=== PATIENT | male | born 1980 | race Caucasian/White ===

== ENCOUNTER 2022-12-04 15:36 | Outpatient (OUT) | payer BC, SELFPAY ==
--- NOTE | 2022-12-04 15:49 | XR_ITS ---
[address] [address] Patient Name: ELISE PRUETT MRN: [id number] date: 1980 Sex: M Assigned Patient Location: RAD Current Patient Location: [facility] Accession/Order Number: [id number] Exam Date: 12/04/2022 15:51 Report Date: 12/04/2022 18:04 At the request of: MAYURI CANNON Procedure: XR shoulder RT min 2V PROCEDURE: XR shoulder RT min 2V COMPARISON: None. HISTORY: Right supraspinatus tendinitis (M75.91) FINDINGS: BONES:No fracture, acute abnormality, or significant arthropathy. SOFT TISSUES:Negative. No visible soft tissue swelling. EFFUSION:None visible. OTHER: Negative. IMPRESSION: No acute radiographic abnormality Electronically authenticated by: YUDI SADLER Date: 12/04/2022 18:04
== END 2022-12-04 15:37 ==
LOC: RAD 15:41
PROVIDERS: PCP Family Medicine; Visit Provider Nurse Practitioner Family
DX: M75.91 Shoulder lesion, unspecified, right shoulder (principal)
CPT/HCPCS: 73030

== ENCOUNTER 2023-10-14 09:41 | Emergency (ER) | payer BC, SELFPAY ==
[2023-10-14 09:45] VITALS: BP 126/80; PULSE 70; TEMP 36.6; O2SAT 100; BMI 31.1
--- NOTE | 2023-10-14 10:00 | ED.BACK1 ---
HPI HPI - Back Pain/Injury General Chief Complaint: Back Pain/Injury Stated Complaint: BACK PAIN Time Seen by Provider: 10/14/23 09:44 Source: patient Mode of arrival: walk-in Limitations: no limitations History of Present Illness HPI Narrative: Patient is very active, works as a facility maintenance technician/temporary staff accountant. Patient bent over to peanut picker a laptop and he suddenly experienced pain in the mid low back. he rested and by the next day it felt better - so he resumed activity. When he bent over to put on his shoes this morning, the pain returned at a much worse level. his said that she found him on the floor almost unable to move. No bowel or bladder dysfunction. No LE weakness or paralysis. He admits to some tingling in both great toes. Related Data Home Medications ?Medication ?Instructions ?Recorded ?Confirmed amitriptyline 25 mg tablet 25 mg PO BID 10/14/23 10/14/23 carvedilol 3.125 mg tablet 3.125 mg PO Q12H 10/14/23 10/14/23 cetirizine 10 mg chewable tablet 10 mg PO DAILY 10/14/23 10/14/23 citalopram 40 mg tablet 40 mg PO DAILY 10/14/23 10/14/23 lorazepam 1 mg tablet 1 mg PO Q12H PRN agitation 10/14/23 10/14/23 perphenazine 2 mg tablet 2 mg PO BID 10/14/23 10/14/23 Previous Rx's ?Medication ?Instructions ?Recorded methocarbamol 750 mg tablet 750 mg PO Q6H PRN pain #30 tabs 10/14/23 nabumetone 750 mg tablet 750 mg PO BID PRN pain #14 tabs 10/14/23 Allergies Allergy/AdvReac Type Severity Reaction Status Date / Time shellfish Allergy Mild Uncoded 10/14/23 09:45 Opioid HPI Opioid Management Most Recent Opioid Data: Last Pain Scale 8 10/14/23 09:54 Exam Narrative Exam Narrative: General: Alert, no acute distress, patient resting comfortably Skin: warm, intact, no pallor noted Head: Normocephalic, atraumatic Eye: Normal conjunctiva Respiratory: No acute distress Abdomen: Normal bowel sounds, soft, nontender, no masses detected. No rebound, guarding, or rigidity noted. Back: inspection of the back shows no obvious deformity, no swelling, no ecchymosis, contusion, abrasion, swelling, erythema, fluctuance or induration. Tenderness noted to lumbosacral junction and right paralumbar soft tissue with some spasming. Straight leg raise on left is negative. Straight leg raise on right is negative. No CVA tenderness noted bilaterally. Musculoskeletal: No deformity noted to bilateral lower extremities. no cyanosis or mottling noted. normal pulses at DP and PT 2+ bilaterally and symmetrically. Normal 5/5 strength at ankles with dorsiflexion and plantar flexion. Patient is able to ambulate. Normal sensation noted to both lower extremities. Neurological: AAOx4, normal sensory and motor observed. L5-S1 reflexes intact symmetrically. DTR 2+ at patellar bilaterally. Psychiatric: Cooperative and interactive. Constitutional Vital Signs, click to edit/add: Last Vital Signs Temp 97.9 F 10/14/23 09:45 Pulse 70 10/14/23 09:45 Resp 18 10/14/23 09:45 BP 126/80 10/14/23 09:45 Pulse Ox 100 10/14/23 09:45 O2 Del Method Room Air 10/14/23 09:45 Course Vital Signs Vital signs: Vital Signs Temperature 97.9 F 10/14/23 09:45 Pulse Rate 70 10/14/23 09:45 Respiratory Rate 18 10/14/23 09:45 Blood Pressure 126/80 10/14/23 09:45 Pulse Oximetry 100 10/14/23 09:45 Oxygen Delivery Method Room Air 10/14/23 09:45 Temperature 97.9 F 10/14/23 09:45 Pulse Rate 70 10/14/23 09:45 Respiratory Rate 18 10/14/23 09:45 Blood Pressure 126/80 10/14/23 09:45 Pulse Oximetry 100 10/14/23 09:45 Oxygen Delivery Method Room Air 10/14/23 09:45 MDM - Back Pain/Injury MDM Narrative Medical decision making narrative: Exam does not reveal any neurosurgical emergency Or findings consistent with acute cauda equina syndrome. I do not see benefit to imaging at this time as he does not suffer blunt trauma, fall or MVC. Exam and history are consistent with an acute lumbosacral strain with associated spasming of the right paralumbar musculature. Patient was given prednisone and Toradol in the emergency department. He was discharged home with prescription for Relafen and Robaxin. PCP follow up recommended Discharge Plan Discharge Stand Alone Forms: Portal Instructions Chief Complaint: Back Pain/Injury Clinical Impression: Strain of lumbar region Patient Disposition: Home, Self-Care Time of Disposition Decision: 10:12 Prescriptions / Home Meds: New nabumetone 750 mg tablet 750 mg PO BID PRN (Reason: pain) Qty: 14 0RF methocarbamol 750 mg tablet 750 mg PO Q6H PRN (Reason: pain) Qty: 30 0RF No Action amitriptyline 25 mg tablet 25 mg PO BID carvedilol 3.125 mg tablet 3.125 mg PO Q12H citalopram 40 mg tablet 40 mg PO DAILY perphenazine 2 mg tablet 2 mg PO BID lorazepam 1 mg tablet 1 mg PO Q12H PRN (Reason: agitation) cetirizine 10 mg tablet,chewable 10 mg PO DAILY Print Language: Hebrew Instructions: Low Back Strain (ED), Lower Back Exercises (ED), Core Strengthening Exercises (ED) Referrals: BETH FLEMING [Primary Care Provider] - 1 week
[2023-10-14] MEDS: KETOROLAC TROMETHAMINE 10 MG TABLET PO (10:16)
[2023-10-14] MEDS: PREDNISONE 20 MG TABLET 40 MG PO (10:16)
== END 2023-10-14 10:25 | disposition home or self-care (01) ==
PROVIDERS: Emergency Provider Emergency Medicine; PCP Family Medicine
DX: S39.012A Strain of muscle, fascia and tendon of lower back, initial encounter (principal); X50.9XXA Other and unspecified overexertion or strenuous movements or postures, initial encounter; Z79.899 Other long term (current) drug therapy
CPT/HCPCS: 99283

== ENCOUNTER 2024-05-10 06:33 | Outpatient (OUT) | payer BC, SELFPAY ==
--- OUTSIDE RECORDS SUMMARY | 2024-05-10 06:35 | XMS_ITS | CCD ---
Author Organization [facility] Care Team Providers Care Drop Man Name Role Phone DR ANNITA JOHNSON Consulting Unavailable ALEX, DR ARIZA Admitting Unavailable FURLONG, DR LAWSON March Primary Care Unavailable ALEX, DR ARIZA Attending Unavailable Amy Larson Consulting Unavailable EDDA, DR TO Espana Admitting Unavailable EDDA, DR TO Espana Attending Unavailable EDDA, DR TO [place]spana Consulting Unavailable NAVEEN, DR LAWSON March Primary Care Unavailable Ritter, Wincha Consulting Unavailable ALEX, DR ARIZA Attending Unavailable ALEX, DR ARIZA Consulting Unavailable NAVEEN, DR LAWSON March Primary Care Unavailable HAY, DR ARIZA Admitting Unavailable AHDOOT, PIPER Consulting Unavailable Lawson Hodge G Unavailable Unavailable Unavailable Naveen, Lawson Keller Primary Care Unavailab kalina Doshi, Dr. Houston Attending Unavaila nael Doshi, Dr. [place] Referring Unavaila ble Lawson Hodge DO Primary Care Provider CHARIS SCHOFIELD Attending Unavailable LAWSON HODGE Referring Unavailable LAWSON HODGE Primary Care Unavailable PAOLO BRUNNER Attending Unavailable TONYANGLAWSON G Referring Unavailable CARLEYLONG, LAWSON March Primary Care Unavailable TONYANGLAWSON Attending Unavailable TONYANGLAWSON G Referring Unavailable CARLEYLONG, LAWSON G Primary Care Unavailable Furlong Lawson SALAZAR Primary Care Provider [phone] MD Hipolito Ruiz Primary Care Provider MD Srinivas Moncada Attending Provider SRINIVAS MONCADA Referring Unavailable Srinivas Moncada Admitting Unavailable Srinivas Moncada Attending Unavailable Hipolito Ruiz Primary Care Unavailable CarleyloLawson henderson DO Primary Care Provider CANDELARIA DOSHI Attending Unavailable CANDELARIA DOSHI Referring Unavailable LAWSON HODGE Primary Care Unavailab le Allergies Allergy Classification Reported Allergen(s) Allergy Type Date of Onset Reaction(s) Facility Shellfish (1 source) Shellfish Food Allergy [address] [facility] Repository (4 sources) Penicillins; Translations: [Penicillins] Allergy to drug (finding) [facility] [employer] 250 DO Work Phone: (4 sources) Shellfish-derive d Products; Translations: [Shellfish-deriv ed Products] [facility] [employer] [facility] Work Phone: (5 sources) Shellfish; Translations: [shellfish derived] Propensity to adverse reactions 1 [facility] (3 sources) SHELLFISH CONTAINING PRODUCTS; Translations: [SHELLFISH CONTAINING PRODUCTS] Propensity to adverse reactions to food (disorder) 7 Anaphylaxis [facility] Repository (2 sources) Penicillin; Translations: [penicillin G] Drug Allergy 1 n/v [facility] Medications Current Medications Medication Drug Class(es) Dates Sig (Normalized) Sig (Original) amitriptyline hydrochloride 25 mg oral tablet (7 sources) Tricyclic Antidepressant Start: 09-21-2023 take 1 tablet by mouth at bedtime amitriptyline (ELAVIL) 25 mg tablet Indications: Generalized anxiety disorder Take 1 tablet (25 mg total) by mouth in the morning and at bedtime. 180 tablet 3 09/21/2023 Active apremilast 30 mg oral tablet (1 source) Start: 02-10-2024 take 1 tablet by mouth in the morning, then take 1 tablet by mouth at bedtime apremilast (OTEZLA) 30 mg tablet Indications: Psoriasis Take 1 tablet (30 mg total) by mouth in the morning and 1 tablet (30 mg total) before bedtime. 180 tablet 1 02/10/2024 Active carvedilol 3.125 mg oral tablet (8 sources) alpha-Adrenergic Jaden, beta-Adrenergic Jaedn Start: 10-21-2021 End: 04-21-2024 take 1 tablet by mouth twice daily at mealtime carvedilol (Coreg) 3.125 mg tablet Indications: Palpitations , Ventricular ectopic beats TAKE 1 TABLET BY MOUTH TWICE DAILY WITH MEALS 180 tablet 3 03/21/2024 Active cetirizine hydrochloride 10 mg chewable tablet (7 sources) Histamine-1 Receptor Antagonist cetirizine (ZyrTEC) 10 mg chewable tablet Chew 1 tablet (10 mg) once daily. Active Zyrtec 10 MG TAB S TAKE 1 TABLET DAILY. Quantity: 0 Refills: 0 Ordered: 11-Jul-2021 DO Active citalopram 40 mg oral tablet (8 sources) Serotonin Reuptake Inhibitor Start: 03-22-2024 citalopram (CeleXA) 40 mg tablet take 1 tablet daily 90 tablet 03/22/2024 Active Start: 12-23-2023 End: 03-22-2024 citalopram (CeleXA) 40 mg ta blet take 1 tablet daily 90 tablet 12/23/2023 03/22/2024 Discontinued fish oil/om-3/E/folic/B6-B12 (CARDIOVID PLUS ORAL) (2 sources) take 1 tablet by mouth twice daily fish oil/om-3/E/folic/B6-B12 (CARDIOVID PLUS ORAL) Take 1 tablet by mouth 2 times a day. Active take 1 tablet by anand th twice daily fish oil/om-3/E/folic/B6-B12 (CARDIOVID PLUS ORAL) Take 1 tablet by mouth 2 times a day. 0 Active folic acid 1 mg oral tablet (1 source) Start: 04-21-2024 take 1 tablet by mouth in the morning folic acid (Folvite) 1 mg tablet Take 1 tablet (1 mg) by mouth early in the morning.. 04/21/2024 Active ibuprofen 800 mg oral tablet (1 source) Nonsteroidal Anti-inflammatory Drug Start: 10-19-2023 take 1 tablet by mouth every eight hours as needed for pain ibuprofen (MOTRIN) 800 mg tablet Indications: Strain of lumbar paraspinous muscle, subsequent encounter Take 1 tablet (800 mg total) by mouth every 8 (eight) hours as needed for pain. 60 tablet 10/19/2023 Active LORazepam 1 mg oral tablet (5 sources) Benzodiazepine Start: 03-10-2024 take 1 tablet by mouth once as needed LORazepam (ATIVAN) 1 mg tablet Indications: Generalized anxiety disorder Take 1 tablet (1 mg total) by mouth every 12 (twelve) hours as needed for anxiety. 60 tablet 03/10/2024 Active Start: 06-06-2022 LORazepam 1 MG Oral Tablet TAKE 1/2 TO 1 TABLET NEEDED FOR ANXIETY. Quantity: 0 Refills: 0 Ordered: 06-Jun-2022 DO Start : 06-Jun-2022 Active Magnesium (7 sources) take 1 tablet by anand th twice daily magnesium 200 mg tablet Take 1 tablet (200 mg) by mouth 2 times a day. Active take 1 tablet by mouth in the mo rning magnesium 200 mg tablet Take 200 mg by mouth in the morning and 200 mg before bedtime. Active take 1 tablet by mouth twice damir ly magnesium 200 mg tablet Take 1 tablet (200 mg) by mouth 2 times a day. 0 Active take 2 tablets by mouth once damir ly Magnesium 200 MG Oral Tablet TAKE 2 TABLET Daily Quantity: 0 Refills: 0 Ordered: 11-Jul-2021 DO Active methotrexate 2.5 mg oral tablet (1 source) Folate Analog Metabolic Inhibitor Start: 04-19-2024 take 6 tablets by mouth every week methotrexate (Trexall) 2.5 mg tablet Take 6 tablets (15 mg total) by mouth 1 (one) time per week. 04/19/2024 Active omeprazole 40 mg delayed release oral capsule (1 source) Proton Pump Inhibitor Start: 04-28-2024 End: 04-28-2025 take 1 capsule by mouth once daily before mealtime omeprazole (PriLOSEC) [address] capsule Indications: Chest pain, unspecified type Take 1 capsule (40 mg) by mouth once daily in the morning. Take before meals. Do not crush or chew. 90 capsule 3 04/28/2024 04/28/2025 Active ondansetron 8 mg disintegrating oral tablet (1 source) Serotonin-3 Receptor Antagonist Start: 02-16-2024 take 1 tablet by mouth every eight hours as needed for nausea and vomiting ondansetron ODT (ZOFRAN ODT) 8 mg disintegrating tablet Dissolve 1 tablet (8 mg total) on tongue every 8 (eight) hours as needed for nausea or vomiting. 20 tablet 02/16/2024 Active perphenazine 2 mg oral tablet (7 sources) Phenothiazine Start: 09-21-2023 take 1 tablet by mouth at bedtime perphenazine (TRILAFON) 2 mg tablet Indications: Generalized anxiety disorder Take 1 tablet (2 mg total) by mouth in the morning and at bedtime. 180 tablet 3 09/21/2023 Active triamcinolone acetonide 5 mg/ml topical cream (1 source) Corticosteroid Start: 02-16-2024 triamcinolone (KENALOG) 0.5 % cream Apply 1 Application topically in the morning and 1 Application before bedtime. 30 g 1 02/16/2024 Active Completed/Discontinued Medications Medication Drug Class(es) Dates Sig (Normalized) Sig (Original) Aurora 3 CAPS (4 sources) Aurora 3 CAPS VERONIQUE E 2 CAPSULE Daily Quantity: 0 Refills: 0 Ordered: 11-Jul-2021 DO Active Problems Active Problems Problem Classification Problem Date Documented Date Episodic/Chronic Anxiety disorders (5 sources) Anxiety disorder, unspecified; Translations: [Generalized anxiety disorder] Onset: 11-14-2016 Resolved: 03-19-2018 11-14-2016 Chronic Cardiac dysrhythmias (18 sources) Ventricular premature beats; Translations: [Other premature beats] Onset: 04-22-2023 04-22-2023 Chronic Cardiac dysrhythmias (18 sources) Palpitations; Translations: [Palpitations] Onset: 04-15-2020 Episodic Conditions associated with dizziness or vertigo (1 source) Dizziness and giddiness; Translations: [DIZZINESS AND GIDDINESS] Onset: 01-10-2021 Episodic Esophageal disorders (1 source) Gastroesophageal reflux disease; Translations: [Gastro-esophageal reflux disease without esophagitis] Onset: 09-16-2012 09-08-2022 Chronic Mood disorders (2 sources) Major depressive disorder, recurrent, in full remission; Translations: [Recurrent major depression in full remission] Onset: 07-02-2017 10-01-2023 Chronic Nonspecific chest pain (15 sources) Chest pain, unspecified; Translations: [Chest pain] Onset: 01-08-2021 Episodic Other aftercare (1 source) Other adjunct faculty for medical terminology (current) drug therapy; Translations: [OTH CARE HOME CURRENT DRUG THERAPY] Onset: 01-10-2021 Episodic Other circulatory disease (1 source) Orthostatic hypotension; Translations: [ORTHOSTATIC HYPOTENSION] Onset: 01-10-2021 Episodic Other inflammatory condition of skin (1 source) Psoriasis, unspecified; Translations: [Psoriasis, unspecified] Onset: 02-10-2024 Chronic Other inflammatory condition of skin (2 sources) Psoriasis; Translations: [Psoriasis, unspecified] Onset: 02-10-2024 02-26-2024 Chronic Other inflammatory condition of skin (1 source) Arthropathic psoriasis, unspecified; Translations: [Arthropathic psoriasis, unspecified] Onset: 03-23-2024 Chronic Other lower respiratory disease (3 sources) Shortness of breath; Translations: [SHORTNESS OF BREATH] Onset: 01-10-2021 Episodic Other lower respiratory disease (8 sources) Dyspnea; Translations: [Shortness of breath] Onset: 04-22-2023 04-22-2023 Episodic Other nutritional; endocrine; and metabolic disorders (4 sources) Obesity; Translations: [Obesity, unspecified] Chronic Other nutritional; endocrine; and metabolic disorders (4 sources) Body mass index 30+ - obesity; Translations: [Body mass index (BMI) 38.0-38.9, adult] Onset: 04-22-2023 04-22-2023 Chronic Other nutritional; endocrine; and metabolic disorders (2 sources) Body mass index (BMI) 38.0-38.9, adult; Translations: [Body mass index (BMI) 38.0-38.9, adult] Onset: 04-22-2023 Chronic Substance-related disorders (9 sources) Nicotine dependence, cigarettes, uncomplicated; Translations: [Smokes tobacco daily] Onset: 01-10-2021 04-28-2024 Chronic Comment on above: 1 ppd; Unclassified (1 source) back spasms Onset: 10-19-2023 Past or Other Problems Problem Classification Problem Date Documented Da te Episodic/Chronic Inflammatory conditions of male genital organs (1 source) Epididymitis; Translations: [EPIDIDYMITIS] Onset: 10-02-2020 Episodic Mood disorders (1 source) Mood disorders Onset: 02-10-2024 02-10-2024 Other male genital disorders (3 sources) Left testicular pain; Translations: [LEFT TESTICULAR PAIN] Onset: 09-30-2020 Episodic Residual codes; unclassified (1 source) Tobacco user; Translations: [Tobacco use] Onset: 11-14-2016 11-14-2016 Episodic Sprains and strains (1 source) Strain of muscle, fascia and tendon of lower back, subsequent encounter; Translations: [Strain of muscle, fascia and tendon of lower back, subsequent encounter] Onset: 10-19-2023 Episodic Unclassified (1 source) Onset: 10-19-2023 10-19-2023 Results Test Name Value Interpretation Reference Range Facility ECG 12 [place] 04-28-2024 Normal sinus rhythm [facility] Work Phone: XR CHEST 2 VIEWSon 4 XR CHEST 2 VIEWS XR - CHEST 2 VIEWS Reason for exam: Psoriasis Technique: PA and lateral view Findings: The heart size is normal. The pulmonary vascularity is unremarkable. The lungs are fully expanded and clear. No pleural abnormalities are seen. No evidence of mediastinal or hilar enlargement. The osseous structures are intact. No soft tissue abnormalities are seen. IMPRESSION: Normal chest x-ray. Dictated on: 03/28/2024 6:36 PM This report has been electronically signed and approved by the interpreting Radiologist. Electronically Signed Rosalino Quesada M.D. 2024-03-28 18:36:17 Normal Not Available XR HAND 1-2 VIEWS LEFTon XR HAND 1-2 VIEWS LEFT XR - LT HAND 2 EWS Reason for exam: Psoriasis Views: 2 Findings: The alignment is normal. No fracture, dislocation or other acute pathology is demonstrated. No soft tissue abnormalities are seen. Impression: Negative exam. Dictated on: 03/28/2024 6:10 PM This report has been electronically signed and approved by the interpreting Radiologist. Electronically Signed Rosalino Quesada M.D. 2024-03-28 18:11:15 Normal Not Available XR HAND 1-2 VIEWS RIGHTon XR HAND 1-2 VIEWS RIGHT EXAM: XR Right H and, Two Views. REASON FOR EXAM: Psoriasis. COMPARISON: Left hand x-rays March 28, 2024. FINDINGS: Two images. Bony cortices, joint spaces and alignment are maintained. There is no new bone formation or articular irregularity. There is a circumscribed cortical based lucent lesion measuring 5.3 mm at the distal end of the shaft of the fourth metacarpal. The borders are corticated and smoothly marginated. No internal matrix, periosteal reaction or pathologic fracture. IMPRESSION: 1. No evidence of active inflammatory arthropathy radiographically. 2. Cortical based lucent lesion of the distal cortex of the fourth metacarpal. This likely represents a small fibrous lesion or cystic lesion. It is nonarticular. No definite suspicious features. Follow-up x-rays of the right hand in 6 months recommended. *This report is generated using voice recognition reporting ([employer] On occasion [employer] erroneously drops words from the report or replaces the spoken word with similar sounding words. Please call with any questions/concerns regarding this report.* Dictated and transcribed 03/28/24dpd This report has been electronically signed and approved by the interpreting radiologist. Electronically Signed Jackson Gandhi II, M.D. 2024-03-28 16:13:36 Normal Not Available XR WRIST 1-2 VIEWS LEFTon XR WRIST 1-2 VIEWS LEFT XR - LT WRIST 2 VIEWS Reason for exam: History of psoriasis Views: 2 Findings: The alignment is normal. No fracture, dislocation or other acute pathology is demonstrated. No soft tissue abnormalities are seen. Impression: Negative exam. Dictated on: 03/28/2024 6:09 PM This report has been electronically signed and approved by the interpreting Radiologist. Electronically Signed Rosalino Quesada M.D. 2024-03-28 18:10:00 Normal Not Available XR WRIST 1-2 VIEWS RIGHTon 1 XR WRIST 1-2 VIEWS RIGHT EXAM: XR Right Wrist, Two Views. REASON FOR EXAM: History of psoriasis COMPARISON: X-rays right hand, left wrist March 28, 2024. FINDINGS: Two images. No new bone formation. There is 2.3 mm of foreshortening of the distal ulna in relation to the radius. Bony cortices and joint spaces are maintained. No radiopaque foreign body visualized radiographically. Soft tissues without abnormality radiographically. No erosions IMPRESSION: No acute bony abnormalities. *This report is generated using voice recognition reporting ([employer] On occasion [employer] erroneously drops words from the report or replaces the spoken word with similar sounding words. Please call with any questions/concerns regarding this report.* Dictated and transcribed 03/28/24/dpd This report has been electronically signed and approved by the interpreting radiologist. Electronically Signed Jackson Gandhi II, M.D. 2024-03-28 15:39:27 Normal Not Available Alanine aminotransferase [En zymatic activity/volume] in Serum or PlasmaOrdered By: Srinivas Castrorow on 03-23-2024 ALT [Catalytic activity/Vol] 40 U/L Normal 7-52 [facility] Comment on above: Performed By: #### H BSAB, QUANT TB, HBSAG, HCV RX PCR, HBCAB #### [facility] , #### CRP, CMP, ESR, CBC #### [facility] [address] Albumin [Mass/volume] in Ser um or Plasma by Bromocresol green (BCG) dye binding methoOrdered By: Srinivas Castrorow on 03-23-2024 Albumin BCG dye [Mass/Vol] 4.3 g/dL 3.5-5.7 [facility] Alkaline phosphatase [Enzyma tic activity/volume] in Serum or PlasmaOrdered By: Srinivas Louisa on 03-23-2024 ALP [Catalytic activity/Vol] 75 U/L Normal 34-104 [facility] Comment on above: Performed By: #### H BSAB, QUANT TB, HBSAG, HCV RX PCR, HBCAB #### [facility] , #### CRP, CMP, ESR, CBC #### [facility] [address] [place] [address] Aspartate aminotransferase [ Enzymatic activity/volume] in Serum or PlasmaOrdered By: Srinivassushma Moncada on 03-23-2024 AST [Catalytic activity/Vol] 25 U/L Normal 13-39 [facility] Comment on above: Performed By: #### H BSAB, QUANT TB, HBSAG, HCV RX PCR, HBCAB #### [facility] , #### CRP, CMP, ESR, CBC #### [facility] [address] [place] [address] [place] Automated basophil %Ordered By: Srinivas Louisa on 03-23-2024 Basophils/100 WBC (Bld) 0.9 % Normal . [facility] Comment on above: Performed By: #### H BSAB, QUANT TB, HBSAG, HCV RX PCR, HBCAB #### [facility] , #### CRP, CMP, ESR, CBC #### [address] Automated basophil countOrde red By: Srinivas Moncada on 03-23-2024 Basophils (Bld) [#/Vol] 0.1 10*3/uL Normal 0.0-0.2 [facility] Comment on above: Performed By: #### H BSAB, QUANT TB, HBSAG, HCV RX PCR, HBCAB #### [facility] , #### CRP, CMP, ESR, CBC #### [address] Automated blood monocyte cou ntOrdered By: Srinivas Moncada on 03-23-2024 Monocytes (Bld) [#/Vol] 0.8 10*3/uL Normal 0.0-0.8 [facility] Comment on above: Performed By: #### H BSAB, QUANT TB, HBSAG, HCV RX PCR, HBCAB #### [facility] , #### CRP, CMP, ESR, CBC #### [address] Automated eosinophil %Ordere d By: rSinivas Moncada on 03-23-2024 Eosinophils/100 WBC (Bld) 6.5 % Normal . [facility] Comment on above: Performed By: #### H BSAB, QUANT TB, HBSAG, HCV RX PCR, HBCAB #### [facility] , #### CRP, CMP, ESR, CBC #### [address] Automated eosinophil countOr dered By: Srinivas Castrorow on 03-23-2024 Eosinophils (Bld) [#/Vol] 0.6 10*3/uL High 0.0-0.45 [facility] Comment on above: Performed By: #### H BSAB, QUANT TB, HBSAG, HCV RX PCR, HBCAB #### [facility] , #### CRP, CMP, ESR, CBC #### [address] Automated monocyte %Ordered By: Srinivas Castrorow on 03-23-2024 Monocytes/100 WBC (Bld) 8.6 % Normal . [facility] Comment on above: Performed By: #### H BSAB, QUANT TB, HBSAG, HCV RX PCR, HBCAB #### [facility] , #### CRP, CMP, ESR, CBC #### [facility] [address] Automated neutrophil %Ordere d By: Srinivas Castrorow on 03-23-2024 Neutrophils/100 WBC (Bld) 50.8 % Normal . [facility] Comment on above: Performed By: #### H BSAB, QUANT TB, HBSAG, HCV RX PCR, HBCAB #### [facility] , #### CRP, CMP, ESR, CBC #### [facility] [address] [place] [address] Bilirubin.total [Mass/volume ] in Serum or PlasmaOrdered By: Srinivassushma Moncada on 03-23-2024 Bilirubin [Mass/Vol] 0.5 mg/dL Normal 0.3-1.0 [facility] Comment on above: Performed By: #### H BSAB, QUANT TB, HBSAG, HCV RX PCR, HBCAB #### [facility] , #### CRP, CMP, ESR, CBC #### [facility] [address] [place] [address] C reactive protein [Mass/vol ume] in Serum or PlasmaOrdered By: Srinivas Moncada on 03-23-2024 CRP [Mass/Vol] 1.1 mg/dL High 0.0-0.5 [facility] C-Reactive Proteinon 024 C-Reactive Protein 1.1 mg/dL High 0.0-0.5 [facility] Comment on above: Result Comment: PERF ORMED BY: [address] [place] [address] PATHOLOGIST VOCATIONAL TECHNICAL EDUCATION DIRECTOR CHIQUI TIJERINA M.D. Performed By: #### H BSAB, QUANT TB, HBSAG, HCV RX PCR, HBCAB #### [facility] , #### CRP, CMP, ESR, CBC #### [facility] [address] [place] [address] [place] Calcium [Mass/volume] in Ser um or PlasmaOrdered By: Srinivas Moncada on 03-23-2024 Calcium [Mass/Vol] 9.5 mg/dL Normal 8.6-10.3 [facility] Comment on above: Performed By: #### H BSAB, QUANT TB, HBSAG, HCV RX PCR, HBCAB #### [facility] , #### CRP, CMP, ESR, CBC #### [facility] [address] Carbon dioxide, total [Moles /volume] in Serum or PlasmaOrdered By: Srinivas Castrorow on 03-23-2024 CO2 [Moles/Vol] 27.5 mmol/L Normal 21.0-31.0 [facility] Comment on above: Performed By: #### H BSAB, QUANT TB, HBSAG, HCV RX PCR, HBCAB #### [facility] , #### CRP, CMP, ESR, CBC #### [facility] [address] [place] [address] [place] Chloride [Moles/volume] in S preeti or PlasmaOrdered By: Srinivas Castrorow on 03-23-2024 Chloride [Moles/Vol] 105 mmol/L Normal 98-107 [facility] Comment on above: Performed By: #### H BSAB, QUANT TB, HBSAG, HCV RX PCR, HBCAB #### [facility] , #### CRP, CMP, ESR, CBC #### [facility] [address] Complete Blood Count Auto Di ffon 03-23-2024 Mean Corpuscular HGB Conc 34.4 g/dL Normal 32.5-35.6 [facility] Comment on above: Performed By: #### H BSAB, QUANT TB, HBSAG, HCV RX PCR, HBCAB #### [facility] , #### CRP, CMP, ESR, CBC #### [address] NRBC% 0.2 /100{WBC} Normal 0-0.5 [facility] Comment on above: Performed By: #### H BSAB, QUANT TB, HBSAG, HCV RX PCR, HBCAB #### [facility] , #### CRP, CMP, ESR, CBC #### [address] Comprehensive Metabolic Pane juan david 03-23-2024 Albumin [Mass/Vol] 4.3 g/dL Normal 3.5-5.7 [facility] Comment on above: Performed By: #### H BSAB, QUANT TB, HBSAG, HCV RX PCR, HBCAB #### [facility] , #### CRP, CMP, ESR, CBC #### [address] GFR/1.73 sq M.predicted MDRD (S/P/Bld) [Vol rate/Area] mL/min/{1.73_m2} Normal [facility] Comment on above: Performed By: #### H BSAB, QUANT TB, HBSAG, HCV RX PCR, HBCAB #### [facility] , #### CRP, CMP, ESR, CBC #### [address] Creatinine [Mass/volume] in Serum or PlasmaOrdered By: Srinivas Moncada on 03-23-2024 Creatinine [Mass/Vol] 0.98 mg/dL Normal 0.70-1.30 [facility] Comment on above: Performed By: #### H BSAB, QUANT TB, HBSAG, HCV RX PCR, HBCAB #### [facility] , #### CRP, CMP, ESR, CBC #### [address] Erythrocyte Sedimentation Ra wilton 03-23-2024 ESR (Bld) [Velocity] 20 mm/h High 0-14 [facility] Comment on above: Result Comment: PERF ORMED BY: [place] [address] PATHOLOGIST VOCATIONAL TECHNICAL EDUCATION DIRECTOR CHIQUI TIJERINA M.D. Performed By: #### H BSAB, QUANT TB, HBSAG, HCV RX PCR, HBCAB #### [facility] , #### CRP, CMP, ESR, CBC #### [address] Erythrocyte distribution wid th [Ratio] by Automated countOrdered By: Srinivas Moncada on 03-23-2024 Erythrocyte distribution width (RBC) [Ratio] 13.4 % Normal 12.0-14.8 [facility] Comment on above: Performed By: #### H BSAB, QUANT TB, HBSAG, HCV RX PCR, HBCAB #### [facility] , #### CRP, CMP, ESR, CBC #### [address] Erythrocyte sedimentation ra te by Photometric methodOrdered By: Srinivas Moncada on 03-23-2024 ESR Photometric method (Bld) [Velocity] 20 mm/hr High 0-14 [facility] Erythrocytes [#/volume] in B lood by Automated countOrdered By: Srinivas Moncada on 03-23-2024 RBC (Bld) [#/Vol] 4.96 10*6/uL Normal 3.90-5.60 [facility] Comment on above: Performed By: #### H BSAB, QUANT TB, HBSAG, HCV RX PCR, HBCAB #### [facility] , #### CRP, CMP, ESR, CBC #### [address] Glucose [Mass/volume] in Ser um or PlasmaOrdered By: Srinivas Moncada on 03-23-2024 Glucose [Mass/Vol] 106 mg/dL High 70-100 [facility] Comment on above: ADA recommended refe rence rangeRandom Glucose Reference Range is dependent on time and content of last meal. Glucose of more than 200 mg/dL in a nonstressed, ambulatory subject supports the diagnosis of Diabetes Mellitus. Result Comment: [facility] Glucose Reference Range is dependent on time and content of last meal. Glucose of more than 200 mg/dL in a nonstressed, ambulatory subject supports the diagnosis of Diabetes Mellitus. ADA recommended reference range Performed By: #### H BSAB, QUANT TB, HBSAG, HCV RX PCR, HBCAB #### [facility] , #### CRP, CMP, ESR, CBC #### [address] Hematocrit [Volume Fraction] of Blood by Automated countOrdered By: Srinivas Moncada on 03-23-2024 Hematocrit (Bld) [Volume fraction] 44.0 % Normal 38.8-50.0 [facility] Comment on above: Performed By: #### H BSAB, QUANT TB, HBSAG, HCV RX PCR, HBCAB #### [facility] , #### CRP, CMP, ESR, CBC #### [address] Hemoglobin [Mass/volume] in BloodOrdered By: Srinivas Moncada on 03-23-2024 Hemoglobin (Bld) [Mass/Vol] 15.1 g/dL Normal 13.0-17.0 [facility] Comment on above: Performed By: #### H BSAB, QUANT TB, HBSAG, HCV RX PCR, HBCAB #### [facility] , #### CRP, CMP, ESR, CBC #### [address] Hep C Ab wRfx to Qnt PCRon 1 Hepatitis C Virus Antibody Non-Reactive Normal Non Reactive [facility] Comment on above: Performed By: #### H BSAB, QUANT TB, HBSAG, HCV RX PCR, HBCAB #### [facility] , #### CRP, CMP, ESR, CBC #### [address] Interpretation Hepatitis C Comment Normal . [facility] Comment on above: Result Comment: Not infected with HCV unless early or acute infection is suspected (which may be delayed in an immunocompromised individual), or other evidence exists to indicate HCV infection. Performed By: #### H BSAB, QUANT TB, HBSAG, HCV RX PCR, HBCAB #### [facility] , #### CRP, CMP, ESR, CBC #### [facility] [address] [place] [address] Hepatitis B Core Antibodyon 03-23-2024 Hepatitis B Core Antibody Negative Normal Negative [facility] Comment on above: Result Comment: Perf ormed at: - [facility] [address] [id number] Gymnastic Teacher: Denny Walton PhD, Phone: [phone] Performed By: #### H BSAB, QUANT TB, HBSAG, HCV RX PCR, HBCAB #### [facility] , #### CRP, CMP, ESR, CBC #### [address] Hepatitis B Surface Antibody on 03-23-2024 Hepatitis B Surface Antibody Non-Reactive Normal . [facility] Comment on above: Result Comment: Non Reactive: Not immune to HBV infection. Equivocal: Unable to determine if anti-HBs is present at levels consistent with immunity. Reactive: Anti-HBs concentration detected at greater than 10 mIU/mL. Individual is considered to be immune to infection with HBV. Performed By: #### H BSAB, QUANT TB, HBSAG, HCV RX PCR, HBCAB #### [facility] , #### CRP, CMP, ESR, CBC #### [facility] [address] [place] [address] Hepatitis B Surface Antigeno n 03-23-2024 HBsAg Screen Negative Normal Negative [facility] Comment on above: Result Comment: PERF ORMED BY: [place] [address] PATHOLOGIST VOCATIONAL TECHNICAL EDUCATION DIRECTOR CHIQUI TIJERINA M.D. Performed By: #### H BSAB, QUANT TB, HBSAG, HCV RX PCR, HBCAB #### [facility] , #### CRP, CMP, ESR, CBC #### [facility] [address] [place] [address] Leukocytes [#/volume] correc meenakshi for nucleated erythrocytes in Blood by Automated counOrdered By: Srinivas Moncada on 03-23-2024 WBC corrected for nucl RBC Auto (Bld) [#/Vol] 8.7 10*3/uL 4.1-10.5 [facility] Leukocytes [#/volume] in Blo od by Automated countOrdered By: Srinivas Moncada on 03-23-2024 WBC (Bld) [#/Vol] 8.7 10*3/uL Normal 4.1-10.5 [facility] Comment on above: Performed By: #### H BSAB, QUANT TB, HBSAG, HCV RX PCR, HBCAB #### [facility] , #### CRP, CMP, ESR, CBC #### [address] Lymphocytes [#/volume] in Bl ood by Automated countOrdered By: Srinivas Moncada on 03-23-2024 Lymphocytes (Bld) [#/Vol] 2.9 10*3/uL Normal 1.00-4.8 [facility] Comment on above: Performed By: #### H BSAB, QUANT TB, HBSAG, HCV RX PCR, HBCAB #### [facility] , #### CRP, CMP, ESR, CBC #### [address] Lymphocytes/100 leukocytes i n Blood by Automated countOrdered By: Srinivas Castrorow on 03-23-2024 Lymphocytes/100 WBC (Bld) 33.2 % Normal . [facility] Comment on above: Performed By: #### H BSAB, QUANT TB, HBSAG, HCV RX PCR, HBCAB #### [facility] , #### CRP, CMP, ESR, CBC #### [address] MCH [Entitic mass] by Automa meenakshi countOrdered By: Srinivas Moncada on 03-23-2024 MCH (RBC) [Entitic mass] 30.5 pg Normal 27.5-35.2 [facility] Comment on above: Performed By: #### H BSAB, QUANT TB, HBSAG, HCV RX PCR, HBCAB #### [facility] , #### CRP, CMP, ESR, CBC #### [facility] [address] MCHC Auto (RBC) [Mass/Vol]Or dered By: Srinivas Moncada on 03-23-2024 MCHC (RBC) [Mass/Vol] 34.4 g/dL 32.5-35.6 [facility] MCV [Entitic volume] by Auto mated countOrdered By: Srinivas Moncada on 03-23-2024 MCV (RBC) [Entitic vol] 88.6 fL Normal 83.5-101 [facility] Comment on above: Performed By: #### H BSAB, QUANT TB, HBSAG, HCV RX PCR, HBCAB #### [facility] , #### CRP, CMP, ESR, CBC #### [facility] [address] [place] [address] Neutrophils [#/volume] in Bl ood by Automated countOrdered By: Srinivas Moncada on 03-23-2024 Neutrophils (Bld) [#/Vol] 4.4 10*3/uL Normal 1.8-7.7 [facility] Comment on above: Performed By: #### H BSAB, QUANT TB, HBSAG, HCV RX PCR, HBCAB #### [facility] , #### CRP, CMP, ESR, CBC #### [facility] [address] [place] [address] No Panel InformationOrdered By: Srinivas Moncada on 03-23-2024 Estimated GFR (CKD-EPI) > 60.0 mL/Min [facility] Creatinine Clearance (Chem N/A [facility] Nucleated erythrocytes [Pres ence] in Blood by Automated countOrdered By: Srinivas Moncada on 03-23-2024 Nucleated RBC Auto Ql (Bld) 0.2 /100{WBC} 0-0.5 [facility] Platelet mean volume [Entiti c volume] in Blood by Automated countOrdered By: Srinivas Castrorow on 03-23-2024 Platelet mean volume (Bld) [Entitic vol] 11.5 fL High 6.6-10.1 [facility] Comment on above: Performed By: #### H BSAB, QUANT TB, HBSAG, HCV RX PCR, HBCAB #### [facility] , #### CRP, CMP, ESR, CBC #### [facility] [address] [place] [id number] [place] Platelets [#/volume] in Bloo d by Automated countOrdered By: Srinivas Castrorow on 03-23-2024 Platelets (Bld) [#/Vol] 190 10*3/uL Normal 150-450 [facility] Comment on above: Performed By: #### H BSAB, QUANT TB, HBSAG, HCV RX PCR, HBCAB #### [facility] , #### CRP, CMP, ESR, CBC #### [facility] [address] [place] [id number] [place] Potassium [Moles/volume] in Serum or PlasmaOrdered By: Srinivas Louisa on 03-23-2024 Potassium [Moles/Vol] 4.3 mmol/L Normal 3.5-5.1 [facility] Comment on above: Performed By: #### H BSAB, QUANT TB, HBSAG, HCV RX PCR, HBCAB #### [facility] , #### CRP, CMP, ESR, CBC #### [facility] [address] [place] [id number] [place] Protein [Mass/volume] in Ser um or PlasmaOrdered By: Srinivas Louisa on 03-23-2024 Protein [Mass/Vol] 6.6 g/dL Normal 6.4-8.9 [facility] Comment on above: Performed By: #### H BSAB, QUANT TB, HBSAG, HCV RX PCR, HBCAB #### [facility] , #### CRP, CMP, ESR, CBC #### [address] QuantiFERON TB Goldon 2023 QFTB Criteria Comment Normal . [facility] Comment on above: Result Comment: Christophe tiFERON-TB Gold Plus is a qualitative indirect test for M tuberculosis infection (including disease) and is intended for use in conjunction with risk assessment, radiography, and other medical and diagnostic evaluations. The QuantiFERON-TB Gold Plus result is determined by subtracting the Nil value from either TB antigen (Ag) value. The Mitogen tube serves as a control for the test. Performed By: #### H BSAB, QUANT TB, HBSAG, HCV RX PCR, HBCAB #### [facility] , #### CRP, CMP, ESR, CBC #### [address] Quant TB Ag Value 0.03 Normal . [facility] Comment on above: Performed By: #### H BSAB, QUANT TB, HBSAG, HCV RX PCR, HBCAB #### [facility] , #### CRP, CMP, ESR, CBC #### [address] Quant TB Gold Plus Negative Normal Negative [facility] Comment on above: Result Comment: No r esponse to M tuberculosis antigens detected. Infection with M tuberculosis is unlikely, but high risk individuals should be considered for additional testing (ATS/IDSA/CDC Clinical Practice Guidelines, 2017). The reference range is an Antigen minus Nil result of <0.35 IU/mL. The specimen received for QuantiFERON testing was incubated by the ordering institution. Specific procedures outlined in our Directory of Services and in the package insert for the QuantiFERON Gold (In Tube) test must be followed to enable for proper stimulation of cells for the production of interferon gamma. Chemiluminescence immunoassay methodology Performed at: [facility] [id number] Gymnastic Teacher: Denny Walton PhD, Phone: [phone] PERFORMED BY: [place] [address] PATHOLOGIST VOCATIONAL TECHNICAL EDUCATION DIRECTOR CHIQUI TIJERINA M.D. Performed By: #### H BSAB, QUANT TB, HBSAG, HCV RX PCR, HBCAB #### [facility] , #### CRP, CMP, ESR, CBC #### [address] Quant TB2 Ag Value 0.01 Normal . [facility] Comment on above: Performed By: #### H BSAB, QUANT TB, HBSAG, HCV RX PCR, HBCAB #### [facility] , #### CRP, CMP, ESR, CBC #### [address] Quantiferon Nil Value 0.00 Normal . [facility] Comment on above: Performed By: #### H BSAB, QUANT TB, HBSAG, HCV RX PCR, HBCAB #### [facility] , #### CRP, CMP, ESR, CBC #### [address] Quantiferon TB Mitogen >10.00 Normal . [facility] Comment on above: Performed By: #### H BSAB, QUANT TB, HBSAG, HCV RX PCR, HBCAB #### [facility] , #### CRP, CMP, ESR, CBC #### [address] Serum globulin measurement b y calculation (mass/volume)Ordered By: Srinivas Moncada on 03-23-2024 Globulin (S) [Mass/Vol] 2.3 g/dL Normal [facility] Comment on above: Performed By: #### H BSAB, QUANT TB, HBSAG, HCV RX PCR, HBCAB #### [facility] , #### CRP, CMP, ESR, CBC #### [address] Serum or plasma albumin/glob ulin mass ratioOrdered By: Srinivas Moncada on 03-23-2024 Albumin/Globulin [Mass ratio] 1.9 {ratio} Normal [facility] Comment on above: Performed By: #### H BSAB, QUANT TB, HBSAG, HCV RX PCR, HBCAB #### [facility] , #### CRP, CMP, ESR, CBC #### [address] Serum or plasma anion gap de terminationOrdered By: Srinivas Moncada on 03-23-2024 Anion gap [Moles/Vol] 9.8 mmol/L Normal 6.0-15.0 [facility] Comment on above: Performed By: #### H BSAB, QUANT TB, HBSAG, HCV RX PCR, HBCAB #### [facility] , #### CRP, CMP, ESR, CBC #### [address] Sodium [Moles/volume] in Ser um or PlasmaOrdered By: Srinivas Moncada on 03-23-2024 Sodium [Moles/Vol] 138 mmol/L Normal 136-145 [facility] Comment on above: Performed By: #### H BSAB, QUANT TB, HBSAG, HCV RX PCR, HBCAB #### [facility] , #### CRP, CMP, ESR, CBC #### [address] Urea nitrogen [Mass/volume] in Serum or PlasmaOrdered By: Srinivas Moncada on 03-23-2024 Urea nitrogen [Mass/Vol] 14 mg/dL Normal 7-25 [facility] Comment on above: Performed By: #### H BSAB, QUANT TB, HBSAG, HCV RX PCR, HBCAB #### [facility] , #### CRP, CMP, ESR, CBC #### [facility] [address] [place] [address] Office Visit (Cardiology)on 07-28-2022 Follow-up visit Diagnoses/Problems Assessed Palpitations (785.1) (R00.2) Premature ventricular contraction (427.69) (I49.3) Shortness of breath (786.05) (R06.02) Sinus tachycardia (427.89) (R00.0) Chest pain (786.50) (R07.9) Current every day smoker (305.1) (F17.200) 1 ppd Class 1 obesity with body mass index (BMI) of 30.0 to 30.9 in adult (278.00,V85.30) (E66.9,Z68.30) Orders Class 1 obesity with body mass index (BMI) of 30.0 to 30.9 in adult Healthy Weight Tips; Status:Complete - Retrospective Authorization; Done: [id number] Some eating tips that can help you lose weight.; Status:Complete - Retrospective Authorization; Done: [id number] SocHx: Current every day smoker Tobacco Use Screening; Status:Complete; Done: [id number] You need to quit smoking.; Status:Complete - Retrospective Authorization; Done: [id number] You need to stop smoking. Though it is not easy, more than half of all adult smokers have quit. We encourage you to write down all the reasons you should quit smoking and set a quit date for yourself. Ask us how we can help. You may also call 5-371-CNHMReocarNOW for free resources and assistance.; Status:Complete - Retrospective Authorization; Done: [id number] Patient Instructions Please bring all medicines, vitamins, and herbal supplements with you when you come to the office. Prescriptions will not be filled unless you are compliant with your follow up appointments or have a follow up appointment scheduled as per instruction of your physician. Refills should be requested at the time of your visit. Follow up in 9 months The provider reviewed the following test(s) and result(s) with the patient: echocardiogram, Holter monitor, laboratory tests and treadmill exercise tolerance test Chief Complaint ELISE SARABIA is being seen for an annual follow-up of. History of Present Illness Patient is here for follow-up continue management for previous evaluation for palpitation with documentation of monomorphic sporadic PVCs, previous evaluation for chest pain and shortness of breath, obesity. Since last time I saw him he complained of occasional palpitation atypical chest pain. He reports functional class I. He denies lightheadedness, dizziness or syncope. Assessment 1. Palpitation with documentation of PVCs. One episode interpreted as possible supraventricular tachycardia it is actually sinus tachycardia and followed heavy exertion. Marked improvement of his symptoms with low-dose magnesium and Coreg he has not been taking magnesium because of diarrhea 2. Evaluation for chest pain with negative stress test continue to have good functional status. Occasional atypical chest pain reported 3. Shortness of breath likely due to tobacco use. He reports resolution of that 4. Minor lightheadedness likely orthostatic resolved 5. Tobacco use 6. Obesity 7. Possible anxiety Plan 1. I advised the patient to continue medical regimen but advised him to take his magnesium with meals 2. Result of his cardiac work-up noted and reviewed. His symptoms appear stable and I do not believe there is need to repeat his testing 3. I recommended observant approach 4. Patient was counseled regarding dietary modification, exercise, losing weight and smoking cessation 5. We will see him back in the office in 9 months 5. Advised him to have a home heart rate monitoring device 6. Patient was advised to notify me change in cardiac status or symptoms Surgical History Problems History of Complete colonoscopy History of Gallbladder surgery Current Meds Medication NameInstruction Amitriptyline HCl - 25 MG Oral TabletTake 1 tablet twice daily Carvedilol 3.125 MG Oral Tablettake 1 tablet by mouth twice a day Citalopram Hydrobromide 40 MG Oral TabletTAKE 1 TABLET DAILY. LORazepam 1 MG Oral TabletTAKE 1/2 TO 1 TABLET NEEDED FOR ANXIETY. Magnesium 200 MG Oral TabletTAKE 2 TABLET Daily Aurora 3 CAPSTAKE 2 CAPSULE Daily Perphenazine 2 MG Oral TabletTake 1 tablet twice daily Zyrtec 10 MG TABSTAKE 1 TABLET DAILY. Allergies Medication Penicillins Recorded By: Snehal Zheng; 06/12/2021 11:54:21 AM diarrhea, nausea Shellfish-derived Products Recorded By: Snehal Zheng; 06/12/2021 11:54:21 AM Social History Problems Caffeine use (V49.89) (Z78.9) 3 cups coffee daily Current every day smoker (305.1) (F17.200) 1 ppd No illicit drug use Social alcohol use (V49.89) (Z78.9) Review of Systems Constitutional: not feeling tired. Cardiovascular: chest pain and palpitations, but no intermittent leg claudication and as noted in HPI. Respiratory: shortness of breath, but no cough. Gastrointestinal: no change in bowel habits and no blood in stools. Integumentary: no skin rashes. Neurological: dizziness, but no seizures and no frequent falls. All other systems have been reviewed and are negative for complaint. Vitals Vital Signs Recorded: 28Jul2022 01:10PM Heart Rate82, L Radial [id number], LUE, Sitting Lopez (more content not included)... Normal [facility] Tobacco Screening.on 023 Adult depression screening assessment No [facility]Daisha 250 DO Work Phone: Fall risk assessment a) No falls within the last year [facility]Forrest 250 DO Work Phone: Tobacco use status [facility] a) Yes [facility]Daisha 250 DO Work Phone: Tobacco Screening. Yes [facility]Forrest 250 DO Work Phone: COMPREHENSIVE METABOLIC PANE [facility] 08-25-2021 Albumin [Mass/Vol] 4.3 g/dL Normal 3.6-5.1 [facility] Comment on above: Performed By: #### 4 96, 93444, 7600 #### [facility] [place] [address] [employer] Craftsman: David Granados MD Albumin/Globulin [Mass ratio] 1.4 {ratio} Normal 1.0-2.5 [facility] Comment on above: Performed By: #### 4 96, 61505, 7600 #### [facility] [place] [address] [employer]sman: David Granados MD ALP [Catalytic activity/Vol] 60 U/L Normal 36-130 [facility] Comment on above: Performed By: #### 4 96, 27034, 7600 #### [facility] [place] [address] [employer]sman: David Granados MD ALT [Catalytic activity/Vol] 49 U/L High 9-46 [facility] Comment on above: Performed By: #### 4 96, 11201, 7600 #### [facility] [place] [address] [place] [address] [employer]sman: David Granados MD AST [Catalytic activity/Vol] 24 U/L Normal 10-40 [facility] Comment on above: Performed By: #### 4 96, 72597, 7600 #### [facility] [place] [address] [employer]sman: David Granados MD Bilirubin [Mass/Vol] 0.5 mg/dL Normal 0.2-1.2 [facility] Comment on above: Performed By: #### 4 96, 91563, 7600 #### [facility] [place] [address] [employer]sman: David Granados MD BUN/CREATININE RATIO NOT APPLICABLE Normal 6-22 [facility] Comment on above: Performed By: #### 4 96, 35963, 0 #### [facility] [place] [address] [employer]sman: David Granados MD Calcium [Mass/Vol] 9.7 mg/dL Normal 8.6-10.3 [facility] Comment on above: Performed By: #### 4 96, 97494, 0 #### [facility] [place] [address] [employer]sman: David Granados MD Chloride [Moles/Vol] 104 mmol/L Normal 98-110 [facility] Comment on above: Performed By: #### 4 96, 54548, 7600 #### [facility] [place] [address] [employer]sman: David Granados MD CO2 [Moles/Vol] 28 mmol/L Normal 20-32 [facility] Comment on above: Performed By: #### 4 96, 25400, 7600 #### [facility] [place] [address] [employer]sman: David Granados MD Creatinine [Mass/Vol] 1.01 mg/dL Normal 0.60-1.[address] [facility] Comment on above: Performed By: #### 4 96, 93494, 0 #### [facility] [place] [address] [employer]man: David Granados MD eGFR NON-AFR. NEPALESE 91 mL/min/1.73m2 Normal > OR = 60 [facility] Comment on above: Performed By: #### 4 96, 68835, 0 #### [facility] [place] [address] [employer]sman: David Granados MD GFR/1.73 sq M.predicted among blacks MDRD (S/P/Bld) [Vol rate/Area] 106 mL/min/{1.73_m2} Normal > OR = 60 [facility] Comment on above: Performed By: #### 4 96, 85291, 0 #### [facility] [place] [address] [employer]sman: David Granados MD Globulin (S) [Mass/Vol] 3.0 g/dL Normal 1.9-3.7 [facility] Comment on above: Performed By: #### 4 96, 51603, 0 #### [facility] [place] [address] [employer]sman: David Granados MD Glucose [Mass/Vol] 96 mg/dL Normal 65-99 [facility] Comment on above: Result Comment: Fasting reference interval Performed By: #### 4 96, 72235, 0 #### [facility] [place] [address] [employer]sman: David Granados MD Potassium [Moles/Vol] 4.5 mmol/L Normal 3.5-5.[address] [facility] Comment on above: Performed By: #### 4 96, 12734, 7600 #### [facility] [place] [address] [employer]man: David Granados MD Protein [Mass/Vol] 7.3 g/dL Normal 6.1-8.1 [facility] Comment on above: Performed By: #### 4 96, 80758, 0 #### [facility] [address], [address] [place] [address] [employer]sman: David Granados MD Sodium [Moles/Vol] 138 mmol/L Normal 135-146 [facility] Comment on above: Performed By: #### 4 96, 77087, 0 #### [facility] [address], [address] [place] [address] [employer]sman: David Granados MD Urea nitrogen [Mass/Vol] 12 mg/dL Normal 7-25 [facility] Comment on above: Performed By: #### 4 96, 65038, 0 #### [facility] [place] [address] [employer]sman: David Granados MD HEMOGLOBIN A1con 08-25-2021 HEMOGLOBIN A1c 5.9 % of total Hgb High <5.7 [facility] Comment on above: Result Comment: For someone without known diabetes, a hemoglobin A1c value between 5.7% and 6.4% is consistent with prediabetes and should be confirmed with a follow-up test. For someone with known diabetes, a value <7% indicates that their diabetes is well controlled. A1c targets should be individualized based on duration of diabetes, age, comorbid conditions, and other considerations. This assay result is consistent with an increased risk of diabetes. Currently, no consensus exists regarding use of hemoglobin A1c for diagnosis of diabetes for children. Performed By: #### 4 96, 95344, 0 #### [facility] [address], [address] [place] [address] [employer]sman: David Granados MD LIPID PANEL, STANDARDon Cholesterol [Mass/Vol] 249 mg/dL High <200 [facility] Comment on above: Order Comment: FASTI NG:YES FASTING: YES Performed By: #### 4 96, 31844, 7600 #### [facility] [address], [address] [place] [address] [employer]sman: David Granados MD Cholesterol in HDL [Mass/Vol] 44 mg/dL Normal > OR = 40 [facility] Comment on above: Order Comment: FASTI NG:YES FASTING: YES Performed By: #### 4 96, 45195, 9840 #### [facility] [address], [address] [place] [address] [employer]sman: David Granados MD Cholesterol in LDL [Mass/Vol] 175 mg/dL High [facility] Comment on above: Order Comment: FASTI NG:YES FASTING: YES Result Comment: Refe rence range: <100 Desirable range <100 mg/dL for primary prevention; <70 mg/dL for patients with CHD or diabetic patients with > or = 2 CHD risk factors. LDL-C is now calculated using the Ede calculation, which is a validated novel method providing better accuracy than the Friedewald equation in the estimation of LDL-C. Marcos GRULLON et al. JON. 2013;310(19): 6578-8306 (http://education.[employer]isp[employer] Radiology/faq/OEC916) Performed By: #### 4 96, 37321, 7600 #### [facility] [address], [address] [place] [address] [employer]sman: David Granados MD Cholesterol.total/Lori sterol in HDL [Mass ratio] 5.7 {ratio} High <5.0 [facility] Comment on above: Order Comment: FASTI NG:YES FASTING: YES Performed By: #### 4 96, 48401, 0420 #### [facility] [address], [address] [place] [address] [employer]sman: David Granados MD NON HDL CHOLESTEROL 205 mg/dL (calc) High <130 [facility] Comment on above: Order Comment: FASTI NG:YES FASTING: YES Result Comment: For patients with diabetes plus 1 major ASCVD risk factor, treating to a non-HDL-C goal of <100 mg/dL (LDL-C of <70 mg/dL) is considered a therapeutic option. Performed By: #### 4 96, 09023, 7600 #### [facility] [address], [address] [place] [address] [employer]: David Granados MD Triglyceride [Mass/Vol] 152 mg/dL High <150 [facility] Comment on above: Order Comment: FASTI NG:YES FASTING: YES Performed By: #### 4 [id number], [id number], 7600 #### [facility] [address], [address] [place] [address] [employer]: David Granados MD Tobacco Screening.on 022 Tobacco use status CPHS a) Yes M [facility] 250 DO Work Phone: BNPon 01-08-2021 Natriuretic peptide B (Bld) [Mass/Vol] 65.0 pg/mL Normal <=450.0 [facility] Comment on above: Performed By: #### P T, DDIM, PTT #### [facility] [address] [place] [address] Clint Sisi CBC AUTO DIFFon 01-08-2021 BASO # 0.1 103/ul Normal 0.0-0.1 [facility] Comment on above: Performed By: #### C BC #### [facility] [address] [place] [address] Clint Sisi Basophils/100 WBC (Bld) 0.9 % Normal 0.2-2.0 [facility] Comment on above: Performed By: #### C BC #### [facility] [address] [place] [address] Clint Sisi EO # 0.3 103/ul Normal 0.0-0.7 [facility] Comment on above: Performed By: #### C BC #### [facility] [address] [place] [address] Clint Sisi Eosinophils/100 WBC (Bld) 3.6 % Normal 0.9-7.0 [facility] Comment on above: Performed By: #### C BC #### [facility] [address] [place] [address] Clint Sisi Erythrocyte distribution width (RBC) [Ratio] 13.0 % Normal 11.0-15.0 [facility] Comment on above: Performed By: #### C BC #### [facility] [address] [place] [address] Clint Sisi Hematocrit (Bld) [Volume fraction] 47.9 % Normal 42.0-54.0 [facility] Comment on above: Performed By: #### C BC #### [facility] [address] [place] [address] Clint Sisi Hemoglobin (Bld) [Mass/Vol] 16.1 g/dL Normal 14.0-18.0 [facility] Comment on above: Performed By: #### C BC #### [facility] [address] [place] [address] Clint Sisi IG # 0.04 10e3/ul Critically high 0.00-0.03 [facility] Comment on above: Performed By: #### C BC #### [facility] [address] [place] [address] Clint Sisi IG % 0.5 % Normal 0.0-0.5 [facility] Comment on above: Performed By: #### C BC #### [facility] [address] [place] [address] Clint Sisi LYMPH # 3.3 103/ul Normal 1.2-3.8 [facility] Comment on above: Performed By: #### C BC #### [facility] [address] [place] [address] Clint Laird Lymphocytes/100 WBC (Bld) 38.0 % Normal 20.5-60.0 [facility] Comment on above: Performed By: #### C BC #### [facility] [address] [place], [place] [id number] Clint Sisi MANUAL DIFF REQ NO Normal [facility] Comment on above: Performed By: #### C BC #### [facility] [address] [place], [place] [id number] Clint Sisi MCH (RBC) [Entitic mass] 29.8 pg Normal 25.9-34.0 [facility] Comment on above: Performed By: #### C BC #### [facility] [address] [place] [address] Clint Laird MCHC (RBC) [Mass/Vol] 33.6 g/dL Normal 29.9-35.2 [facility] Comment on above: Performed By: #### C BC #### [facility] [address] [place], [place] [id number] Clint Laird MCV (RBC) [Entitic vol] 88.7 fL Normal 80.0-94.0 [facility] Comment on above: Performed By: #### C BC #### [facility] [address] [place] [address] Clint Laird MONO # 0.8 103/ul Normal 0.3-0.8 [facility] Comment on above: Performed By: #### C BC #### [facility] [address] [place] [address] Clint Laird Monocytes/100 WBC (Bld) 8.7 % Normal 1.7-12.0 [facility] Comment on above: Performed By: #### C BC #### [facility] [address] [place] [address] Clint Mayeren NEUT # 4.2 103/ul Normal 1.4-6.5 [facility] Comment on above: Performed By: #### C BC #### [facility] [address] [place], [place] [id number] Clint Laird Neutrophils/100 WBC (Bld) 48.3 % Normal 43.0-75.0 [facility] Comment on above: Performed By: #### C BC #### [facility] [address] [place], [place] [id number] Clint Laird Platelet mean volume (Bld) [Entitic vol] 12.0 fL Normal 9.5-13.5 [facility] Comment on above: Performed By: #### C BC #### [facility] [address] [place], [place] [address] Clint Sisi PLT 218 103/ul Normal 150-[address] [facility] Comment on above: Performed By: #### C BC #### [facility] [address] [place], [place] [address] Clint Sisi RBC 5.40 106/ul Normal 4.70-6.10 [facility] Comment on above: Performed By: #### C BC #### [facility] [address] [place] [address] Clintedin Laird WBC 8.6 103/ul Normal 4.0-11.0 [facility] Comment on above: Performed By: #### C BC #### [facility] [address] [place], [place] [id number] Clintedin Mayeren D-DIMERon 01-08-2021 D-DIMER 0.19 mg/L FEU Normal 0.19-0.50 [facility] Comment on above: Performed By: #### D DIM #### [facility] [address] [place] [address] Clint Sisi D-DIMER COMMENTS SEE BELOW Normal [facility] Comment on above: Result Comment: Incr eases in D-Dimer concentration observed with thromboembolic events can be variable due to localization, size, and age of the thrombus. Therefore, a thromboembolic event cannot be diagnosed with certainty on the basis of the reference range. D-Dimers may also be elevated for a variety of disorders including: advanced age, , coronary disease, cancer, liver disease, infection, inflammation, hematoma, DIC, trauma, post-surgery, diabetes, thrombolytic or anticoagulant therapy, stress, and generalized hospitalization. Performed By: #### D DIM #### [facility] [address] [place], [place] [id number] Clint Laird PROF CHEM 8 (BAS METB)on Anion gap [Moles/Vol] 12.9 mmol/L Normal [facility] Comment on above: Performed By: #### B SEAFOOD MANAGER, HSTROPN, BMP, TSH #### [facility] [address] [id number] Clint Sisi Calcium [Mass/Vol] 8.9 mg/dL Normal 8.4-10.2 [facility] Comment on above: Performed By: #### B SEAFOOD MANAGER, HSTROPN, BMP, TSH #### [facility] [address] [place], [place] [address] Clint Sisi Chloride [Moles/Vol] 105 mmol/L Normal 98-107 [facility] Comment on above: Performed By: #### B SEAFOOD MANAGER, HSTROPN, BMP, TSH #### [facility] [address] [place] [address] Clint Sisi CO2 [Moles/Vol] 25.9 mmol/L Normal 22.0-30.0 [facility] Comment on above: Performed By: #### B SEAFOOD MANAGER, HSTROPN, BMP, TSH #### [facility] [address] [address] Clint Sisi Creatinine [Mass/Vol] 1.04 mg/dL Normal 0.66-1.25 [facility] Comment on above: Performed By: #### B SEAFOOD MANAGER, HSTROPN, BMP, TSH #### [facility] [address] [place] [address] Clint Sisi EGFR-AF NEPALESE >60 Normal >=60 [facility] Comment on above: Performed By: #### B SEAFOOD MANAGER, HSTROPN, BMP, TSH #### [facility] [address] [place] [address] Clint Sisi EGFR-NON AF NEPALESE >60 Normal >=60 [facility] Comment on above: Performed By: #### B SEAFOOD MANAGER, HSTROPN, BMP, TSH #### [facility] [address] [place] [address] Clint Sisi Glucose [Mass/Vol] 131 mg/dL Critically high 74-106 [facility] Comment on above: Performed By: #### B SEAFOOD MANAGER, HSTROPN, BMP, TSH #### [facility] [address] [place] [address] Clint Sisi Potassium [Moles/Vol] 3.8 mmol/L Normal 3.4-5.[address] [facility] Comment on above: Performed By: #### B SEAFOOD MANAGER, HSTROPN, BMP, TSH #### [facility] [address] [place] [address] Clint Sisi Sodium [Moles/Vol] 140 mmol/L Normal 137-145 [facility] Comment on above: Performed By: #### B SEAFOOD MANAGER, HSTROPN, BMP, TSH #### [facility] [address] [address] Clintedin Laird Urea nitrogen [Mass/Vol] 14.0 mg/dL Normal 9.0-20.0 [facility] Comment on above: Performed By: #### B SEAFOOD MANAGER, HSTROPN, BMP, TSH #### [facility] [address] [place] [address] Clint Laird Urea nitrogen/Creatinine [Mass ratio] 13.5 mg/mg Normal [facility] Comment on above: Performed By: #### B SEAFOOD MANAGER, HSTROPN, BMP, TSH #### [facility] [address] [place] [address] Clint Laird TROPONIN, HIGH SENSITIVITYon 01-08-2021 HSTROP <4.0 Normal 4.0-42.[address] [facility] Comment on above: Result Comment: CUT- OFF POINTS HAVE BEEN ESTABLISHED BASED ON THE FOURTH UNIVERSAL DEFINITIONS OF MYOCARDIAL INFARCTION. THE UPPER REFERENCE LIMIT (URL) OF TROPONIN, DEFINED THE 99TH PERCENTILE OF cTnI DISTRIBUTION IN A REFERENCE POPULATION, HAS BEEN CONFIRMED THE DECISION THRESHOLD FOR OR DIAGNOSIS. Performed By: #### P T, DDIM, PTT #### [facility] [address] [place] [address] Clint Sisi TSHon 01-08-2021 TSH 1.639 uIU/mL Normal 0.470-4.680 [facility] Comment on above: Performed By: #### B SEAFOOD MANAGER, HSTROPN, BMP, TSH #### [facility] [address] [place] [address] Clint Sisi TSH RANGE SEE BELOW Normal [facility] Comment on above: Result Comment: <0.3 4 UIU/ml HYPERTHYROID 0.34-5.60 UIU/ml EUTHYROID >5.60 UIU/ml HYPOTHYROID Performed By: #### B SEAFOOD MANAGER, HSTROPN, BMP, TSH #### [facility] [address] [place] [address] Clint Sisi XR CHEST 2 Von 01-08-2021 XR CHEST 2 V EXAM: XR CHEST 2 V HISTORY: SHORTNESS OF BREATH COMPARISON: Chest x-ray 04/15/2020. TECHNIQUE: 2 views of the chest are submitted for review. FINDINGS: The heart size is normal. No dense focal consolidation, pneumothorax or pleural effusion is seen. No acute osseous abnormality seen. IMPRESSION: No radiographic evidence for acute cardiopulmonary disease. Electronically authenticated by: PIPER HURST Date: 2021-01-08 16:[address] [facility] US SCROTUM W VASCULAR ORGANo n 09-30-2020 US SCROTUM W VASCULAR ORGAN Ultrasound scrotum/testicle HISTORY: Pain left total pain for few hours, no known injury TECHNIQUE: Dedicated ultrasound of the scrotum and testes performed. FINDINGS: Comparison: None. Both testicles demonstrate normal echotexture and echogenicity. Right testicle measures 4.5 x 2.3 x 2.1 mm. The left testicle measures 40.1 x 3.3 x 1.9 cm. There is increased color flow to the left testicle. There are Dopplerable arterial and venous waveforms in both testicles. There is increased vascular flow to the left epididymal head. Right epididymal head is normal in appearance. There is no hydrocele on either side. There is no varicocele. IMPRESSION: 1. Left orchitis/epididymiti s. Correlate clinically and follow-up to resolution. There is no inflammation of the right testicle or right epididymis. 2. Negative for testicular torsion or testicular mass. 3. Negative for hydrocele or varicocele. Electronically authenticated by: MARVIN RITTER Date: 2020-09-30 21:[address] [facility] BNPon 04-15-2020 Natriuretic peptide B (Bld) [Mass/Vol] 22.0 pg/mL Normal <=450.0 [facility] Comment on above: Performed By: #### P T, DDIM, PTT #### [facility] [address] [place], [place] [address] Clint Sisi CBC AUTO DIFFon 04-15-2020 BASO # 0.1 103/ul Normal 0.0-0.1 [facility] Comment on above: Performed By: #### P T, DDIM, PTT #### [facility] [address] [place], [place] [address] Clint Sisi Basophils/100 WBC (Bld) 0.8 % Normal 0.2-2.0 [facility] Comment on above: Performed By: #### P T, DDIM, PTT #### [facility] [address] [place] [address] Clint Laird EO # 0.3 103/ul Normal 0.0-0.7 [facility] Comment on above: Performed By: #### P T, DDIM, PTT #### [facility] [address] [place] [address] Clint Laird Eosinophils/100 WBC (Bld) 4.4 % Normal 0.9-7.0 [facility] Comment on above: Performed By: #### P T, DDIM, PTT #### [facility] [address] [place] [address] Clint Laird Erythrocyte distribution width (RBC) [Ratio] 12.9 % Normal 11.0-15.0 [facility] Comment on above: Performed By: #### P T, DDIM, PTT #### [facility] [address] [place] [address] Clint Laird Hematocrit (Bld) [Volume fraction] 46.3 % Normal 42.0-54.0 [facility] Comment on above: Performed By: #### P T, DDIM, PTT #### [facility] [address] [place] [address] Clint Laird Hemoglobin (Bld) [Mass/Vol] 15.5 g/dL Normal 14.0-18.0 [facility] Comment on above: Performed By: #### P T, DDIM, PTT #### [facility] [address] [place] [address] Clintedin Laird IG # 0.04 10e3/ul Critically high 0.00-0.03 [facility] Comment on above: Performed By: #### P T, DDIM, PTT #### [facility] [address] [place] [address] Clint Sisi IG % 0.6 % Critically high 0.0-0.5 [facility] Comment on above: Performed By: #### P T, DDIM, PTT #### [facility] [address] [place] [address] Clint Sisi LYMPH # 2.1 103/ul Normal 1.2-3.8 [facility] Comment on above: Performed By: #### P T, DDIM, PTT #### [facility] [address] [place], [place] [address] Clint Sisi Lymphocytes/100 WBC (Bld) 30.0 % Normal 20.5-60.0 [facility] Comment on above: Performed By: #### P T, DDIM, PTT #### [facility] [address] [place], [place] [address] Clint Sisi MANUAL DIFF REQ NO Normal [facility] Comment on above: Performed By: #### P T, DDIM, PTT #### [facility] [address] [place] [address] Clint Sisi MCH (RBC) [Entitic mass] 30.5 pg Normal 25.9-34.0 [facility] Comment on above: Performed By: #### P T, DDIM, PTT #### [facility] [address] [place] [address] Clint Sisi MCHC (RBC) [Mass/Vol] 33.5 g/dL Normal 29.9-35.2 [facility] Comment on above: Performed By: #### P T, DDIM, PTT #### [facility] [address] [place], [place] [address] Clint Sisi MCV (RBC) [Entitic vol] 91.0 fL Normal 80.0-94.0 [facility] Comment on above: Performed By: #### P T, DDIM, PTT #### [facility] [address] [place] [address] Clint Sisi MONO # 0.7 103/ul Normal 0.3-0.8 [facility] Comment on above: Performed By: #### P T, DDIM, PTT #### [facility] [address] [place] [address] Clint Sisi Monocytes/100 WBC (Bld) 9.3 % Normal 1.7-12.0 [facility] Comment on above: Performed By: #### P T, DDIM, PTT #### [facility] [address] [address] Clint Laird NEUT # 3.9 103/ul Normal 1.4-6.5 [facility] Comment on above: Performed By: #### P T, DDIM, PTT #### [facility] [address] [place] [address] Clint Laird Neutrophils/100 WBC (Bld) 54.9 % Normal 43.0-75.[address] [facility] Comment on above: Performed By: #### P T, DDIM, PTT #### [facility] [address] [place] [address] Clint Laird Platelet mean volume (Bld) [Entitic vol] 11.8 fL Normal 9.5-13.5 [facility] Comment on above: Performed By: #### P T, DDIM, PTT #### [facility] [address] [place] [address] Clint Laird PLT 227 103/ul Normal 150-[address] [facility] Comment on above: Performed By: #### P T, DDIM, PTT #### [facility] [address] [place] [address] Clint Laird RBC 5.09 106/ul Normal 4.70-6.[address] [facility] Comment on above: Performed By: #### P T, DDIM, PTT #### [facility] [address] [place] [address] Clint Laird WBC 7.1 103/ul Normal 4.0-11.[address] [facility] Comment on above: Performed By: #### P T, DDIM, PTT #### [facility] [address] [place], [place] [address] Clint Laird D-DIMERon 04-15-2020 D-DIMER COMMENTS SEE BELOW Normal [facility] Comment on above: Result Comment: Incr eases in D-Dimer concentration observed with thromboembolic events can be variable due to localization, size, and age of the thrombus. Therefore, a thromboembolic event cannot be diagnosed with certainty on the basis of the reference range. D-Dimers may also be elevated for a variety of disorders including: advanced age, , coronary disease, cancer, liver disease, infection, inflammation, hematoma, DIC, trauma, post-surgery, diabetes, thrombolytic or anticoagulant therapy, stress, and generalizd hospitalization. Performed By: #### P T, DDIM, PTT #### [facility] [address] [place] [address] Clint Laird Fibrin D-dimer FEU IA (Bld) [Mass/Vol] 0.24 ug/mL Normal 0.19-0.50 [facility] Comment on above: Performed By: #### P T, DDIM, PTT #### [facility] [address] [place], [place] [address] Clint Laird PROF 14(COMP METB)on 020 Albumin [Mass/Vol] 3.8 g/dL Normal 3.5-5.0 [facility] Comment on above: Performed By: #### P T, DDIM, PTT #### [facility] [address] [place] [address] Clint Laird Albumin/Globulin [Mass ratio] 1.1 {ratio} Normal [facility] Comment on above: Performed By: #### P T, DDIM, PTT #### [facility] [address] [place] [address] Clintedin Laird ALP [Catalytic activity/Vol] 68 U/L Normal 38-126 [facility] Comment on above: Performed By: #### P T, DDIM, PTT #### [facility] [address] [place] [address] Clint Laird ALT [Catalytic activity/Vol] 39 U/L Normal 21-72 [facility] Comment on above: Performed By: #### P T, DDIM, PTT #### [facility] [address] [place], [place] [address] Clintedin Laird Anion gap [Moles/Vol] 10.4 mmol/L Normal [facility] Comment on above: Performed By: #### P T, DDIM, PTT #### [facility] [address] [place] [address] Clint Laird AST [Catalytic activity/Vol] 22 U/L Normal 17-59 [facility] Comment on above: Performed By: #### P T, DDIM, PTT #### [facility] [address] [place] [address] Clint Sisi Bilirubin [Mass/Vol] 0.5 mg/dL Normal 0.2-1.[address] [facility] Comment on above: Performed By: #### P T, DDIM, PTT #### [facility] [address] [place] [address] Clint Sisi Calcium [Mass/Vol] 9.0 mg/dL Normal 8.4-10.2 [facility] Comment on above: Performed By: #### P T, DDIM, PTT #### [facility] [address] [place] [address] Clint Sisi Chloride [Moles/Vol] 104 mmol/L Normal 98-[address] [facility] Comment on above: Performed By: #### P T, DDIM, PTT #### [facility] [address] [place] [address] Clint Sisi CO2 [Moles/Vol] 30.0 mmol/L Normal 22.0-30.0 [facility] Comment on above: Performed By: #### P T, DDIM, PTT #### [facility] [address] [place] [address] Clint Sisi Creatinine [Mass/Vol] 1.07 mg/dL Normal 0.66-1.25 [facility] Comment on above: Performed By: #### P T, DDIM, PTT #### [facility] [address] [place] [address] Clint Sisi EGFR-AF NEPALESE >60 Normal >=60 [facility] Comment on above: Performed By: #### P T, DDIM, PTT #### [facility] [address] [place] [address] Clint Sisi EGFR-NON AF NEPALESE >60 Normal >=[address] [facility] Comment on above: Performed By: #### P T, DDIM, PTT #### [facility] [address] [place] [address] Clint Sisi Globulin (S) [Mass/Vol] 3.6 g/dL Normal [facility] Comment on above: Performed By: #### P T, DDIM, PTT #### [facility] [address] [place] [address] Clint Sisi Glucose [Mass/Vol] 104 mg/dL Normal 74-106 [facility] Comment on above: Performed By: #### P T, DDIM, PTT #### [facility] [address] [place] [address] Clint Sisi Potassium [Moles/Vol] 4.4 mmol/L Normal 3.4-5.0 [facility] Comment on above: Performed By: #### P T, DDIM, PTT #### [facility] [address] [place] [address] Clint Sisi Protein [Mass/Vol] 7.4 g/dL Normal 6.1-8.2 [facility] Comment on above: Performed By: #### P T, DDIM, PTT #### [facility] [address] [place] [address] Clint Sisi Sodium [Moles/Vol] 140 mmol/L Normal 137-145 [facility] Comment on above: Performed By: #### P T, DDIM, PTT #### [facility] [address] [place] [address] Clint Sisi Urea nitrogen [Mass/Vol] 14.0 mg/dL Normal 9.0-20.0 [facility] Comment on above: Performed By: #### P T, DDIM, PTT #### [facility] [address] [place] [address] Clint Sisi Urea nitrogen/Creatinine [Mass ratio] 13.0 mg/mg Normal [facility] Comment on above: Performed By: #### P T, DDIM, PTT #### [facility] [address] [place] [address] Clint Laird PROTIMEon 04-15-2020 INR Coag (PPP) [Relative time] 0.95 {INR} Normal [facility] Comment on above: Performed By: #### P T, DDIM, PTT #### [facility] [address] [place] [address] Clint Sisi INR GUIDELINES SEE BELOW Normal [facility] Comment on above: Result Comment: LOPEZ RED INR: 2.0 - 3.0 CONDITIONS NOT LISTED BELOW 2.5 - 3.5 FOR PROSTHETIC HEART VALVE REPLACEMENT 2.5 - 3.5 RECURRENT THROMBOSIS Performed By: #### P T, DDIM, PTT #### [facility] [address] [address] Clint Sisi PT Coag (PPP) [Time] 10.1 s Normal 9.0-11.6 [facility] Comment on above: Performed By: #### P T, DDIM, PTT #### [facility] [address] [place] [address] Clint Sisi PT NORMAL PLEASE NOTE: NORMAL RANGE CHANGE 03-09-2014 DUE TO REAGENT LOT CHANGE Normal [facility] Comment on above: Performed By: #### P T, DDIM, PTT #### [facility] [address] [address] Clint Sisi PTTon 04-15-2020 aPTT Coag (Bld) [Time] 32.2 s Normal 22.3-36.2 [facility] Comment on above: Performed By: #### P T, DDIM, PTT #### [facility] [address] [place] [address] Clint Sisi PTT NORMAL PLEASE NOTE: NORMAL RANGE CHANGE 05-16-2015 DUE TO REAGENT LOT CHANGE Normal [facility] Comment on above: Performed By: #### P T, DDIM, PTT #### [facility] [address] [place] [address] Clint Sisi TROPONIN - Ion 04-15-2020 TROP <0.012 Normal <=0.034 [facility] Comment on above: Performed By: #### P T, DDIM, PTT #### [facility] [address] [place] [address] Clint Sisi TROPONIN RANGE SEE BELOW Normal [facility] Comment on above: Result Comment: <0.0 34 ng/ml NEGATIVE 0.034-0.119 INDETERMINATE 0.120 AMI CUT OFF Performed By: #### P T, DDIM, PTT #### [facility] [address] [id number] Clint Laird TSHon 04-15-2020 TSH 1.185 uIU/mL Normal 0.470-4.680 [facility] Comment on above: Performed By: #### P T, DDIM, PTT #### [facility] [address] [address] [facility] T[facility] RANGE SEE BELOW Normal [facility] Comment on above: Result Comment: <0.3 4 UIU/ml HYPERTHYROID 0.34-5.60 UIU/ml EUTHYROID >5.60 UIU/ml HYPOTHYROID Performed By: #### P T, DDIM, PTT #### [facility] [address] [address] Clint Laird XR CHEST 2 Von 04-15-2020 XR CHEST 2 V EXAMINATION: XR CHEST 2 V HISTORY: SHORTNESS OF BREATH COMPARISON: [place] XR from 05/25/2014 TECHNIQUE: 2 projections FINDINGS: LUNGS: No significant pulmonary parenchymal abnormalities. VASCULATURE: No increased pulmonary vasculature. PLEURA: No pneumothorax, effusion, or pleural thickening. CARDIAC: No cardiomegaly or cardiac silhouette abnormality. MEDIASTINUM: No visible mass or adenopathy. BONES: No fracture or visible bone lesion. OTHER: Negative. IMPRESSION: No acute cardiopulmonary findings Electronically authenticated by: AMY LARSON Date: 2020-04-15 09:24 Normal [facility] Vital Signs Date Time Vital Sign Value Performing Clinician Faci jessa 04-28-2024 15:00-0500 Body height 182.9 cm Candelaria Doshi MD Work Phone: [facility] 04-28-2024 15:00-0500 Body mass index (BMI) [Ratio] 30.65 kg/m2 Candelaria Doshi MD Work Phone: [facility] 04-28-2024 15:00-0500 Body weight 102.51 kg Candelaria Doshi MD Work Phone: [facility] 04-28-2024 15:00-0500 Diastolic blood pressure 88 mm[Hg] Candelaria Doshi MD Work Phone: [facility] 04-28-2024 15:00-0500 Heart rate 73 /min Candelaria Doshi MD Work Phone: [facility] 04-28-2024 15:00-0500 Systolic blood pressure 144 mm[Hg] Candelaria Doshi MD Work Phone: [facility] 04-22-2023 16:23-0400 Body height 182.9 cm Candelaria Doshi MD Work Phone: [facility] 04-22-2023 16:23-0400 Body mass index (BMI) [Ratio] 30.38 kg/m2 Candelaria Doshi MD Work Phone: [facility] 04-22-2023 16:23-0400 Body weight 101.61 kg Candelaria Doshi MD Work Phone: [facility] 04-22-2023 16:23-0400 Diastolic blood pressure 74 mm[Hg] Candelaria Doshi MD Work Phone: [facility] 04-22-2023 16:23-0400 Heart rate 82 /min Candelaria Doshi MD Work Phone: [facility] 04-22-2023 16:23-0400 Systolic blood pressure 126 mm[Hg] Candelaria Doshi MD Work Phone: [facility] 07-28-2022 13:10-0500 Body height 182.88 cm Lawson Hodge Work Phone: [facility] [employer] 250 DO Work Phone: 07-28-2022 13:10-0500 Body mass index (BMI) [Ratio] 30.92 kg/m2 Lawson Hodge Work Phone: [facility] [employer] 250 DO Work Phone: 07-28-2022 13:10-0500 Body surface area Derived from formula 2.25 m2 Lawson G Furlong Work Phone: [facility] [employer] 250 DO Work Phone: 07-28-2022 13:10-0500 Body weight 103.42 kg Lawson G Furlong Work Phone: [facility] [employer] 250 DO Work Phone: 07-28-2022 13:10-0500 Diastolic blood pressure 84 mm[Hg] Lawson G Furlong Work Phone: [facility] [employer] 250 DO Work Phone: 07-28-2022 13:10-0500 Heart rate 82 /min Lawson G Carleylong Work Phone: [facility] [employer] 250 DO Work Phone: 07-28-2022 13:10-0500 Systolic blood pressure 128 mm[Hg] Lawson G Furlong Work Phone: [facility] [employer] 250 DO Work Phone: 07-11-2021 16:00-0500 Body height 182.88 cm Lawson G Furlong Work Phone: [facility] [employer] 250 DO Work Phone: 07-11-2021 16:00-0500 Body mass index (BMI) [Ratio] 30.24 kg/m2 Lawson G Furlong Work Phone: [facility] [employer] 250 DO Work Phone: 07-11-2021 16:00-0500 Body surface area Derived from formula 2.23 m2 Lawson G Furlong Work Phone: [facility] [employer] 250 DO Work Phone: 07-11-2021 16:00-0500 Body weight 101.15 kg Lawson Howelong Work Phone: [facility] [employer] 250 DO Work Phone: 07-11-2021 16:00-0500 Diastolic blood pressure 68 mm[Hg] Lawson Howelong Work Phone: [facility] [employer] 250 DO Work Phone: 07-11-2021 16:00-0500 Heart rate 84 /min Lawson Howelong Work Phone: [facility] [employer] 250 DO Work Phone: 07-11-2021 16:00-0500 Systolic blood pressure 118 mm[Hg] Lawson Howelong Work Phone: [facility] [employer] 250 DO Work Phone: Encounters Encounter Date Encounter Type Care Provider Facility Start: 04-28-2024 End: 04-28-2024 Office outpatient visit 25 minutes Candelaria Doshi MD Work Phone: [facility] Comment on above: Chest pain, unspecif ied type (Primary Dx); Palpitations; Ventricular ectopic beats; PAC (premature atrial contraction); Shortness of breath; BMI 38.0-38.9,adult; Current smoker Start: 04-28-2024 End: 04-28-2024 ambulatory [facility] Start: 03-28-2024 End: 03-28-2024 ambulatory SRINIVAS MONCADA Not Available Start: 03-23-2024 End: 03-23-2024 Patient encounter procedure MD Hipolito Ruiz Work Phone: [facility] [address] Work Phone: Start: 03-23-2024 End: 03-23-2024 ambulatory MD Hipolito Ruiz Work Phone: [facility] Work Phone: Start: 03-22-2024 End: 03-22-2024 Refill Lawson Hodge DO Work Phone: [facility] Start: 02-10-2024 End: 02-10-2024 ambulatory LAWSON HODGE [facility] Start: 10-19-2023 End: 10-19-2023 ambulatory PAOLO BRUNNER [facility] Start: 10-01-2023 End: 10-01-[address] [facility] Start: 04-22-2023 End: 04-22-2023 Office outpatient visit 15 minutes Candelaria Doshi MD Work Phone: [facility] Comment on above: Shortness of breath (Primary Dx); Palpitations; Ventricular ectopic beats; PAC (premature atrial contraction); BMI 38.0-38.9,adult Start: 10-28-2022 Rx Renewal Lawson Singleton ng Work Phone: [facility] 250 DO Work Phone: Start: 07-28-2022 Office outpatient vi sit 25 minutes Lawson Hodge Work Phone: [facility] 250 DO Work Phone: Start: 07-28-2022 ambulatory Lawson Howecuongsantiago Lopez acility: Start: 10-21-2021 Rx Renewal Lawson Singleton ng Work Phone: [facility] 600 DO Work Phone: Start: 07-11-2021 Office outpatient vi sit 15 minutes Lawson Hodge Work Phone: [facility] 250 DO Work Phone: Start: 01-08-2021 End: 01-08-[address] ANNITA JOHNSON Facility:[facility] Start: 09-30-2020 End: 09-30-[address] TO BAÑUELOS Facility:[facility] Start: 04-15-2020 End: 04-15-[address] ANNITA JOHNSON Facility:[facility] Procedures Date Procedure Procedure Detail Performing Clinician Start: 04-28-2024 Ecg routine ecg w/le ast 12 lds w/i&r Candelaria Doshi MD Work Phone: Start: 02-10-2024 Adult depression scr eening assessment Lawson Howecuongsantiago Work Phone: Start: 06-13-2020 Echocardiography Operation on gallbladder Kanu Howebryce Work Phone: Total colonoscopy Lawson Lopez urbryce Work Phone: Plan of Treatment Date Care Activity Detail Author Start: 2028 Zoster Vaccines (1 of 2) Zoste r Vaccines (1 of 2) [facility] Start: 02-09-2025 Adult BMI Screening Adult BMI Screen ing [facility] Start: 02-09-2025 Depression Screening Depression Scre ening [facility] Start: 02-09-2025 Tobacco Screening Tobacco Screening [facility] Start: 10-18-2024 Adult BMI Follow Up Plan Adult BMI Follow Up Plan [facility] Start: 08-04-2024 End: 08-04-2024 Patient encounter procedure 08/04/2024 2:10 PM EST Office Visit [facility] [address] [address] [place] [address] Candelaria Doshi MD [address] [place] [address] [facility] Start: 05-12-2024 End: 05-12-2024 Patient encounter procedure 05/12/2024 9:30 AM EST [facility] [address] [place] [id number] Lawson Hodge DO [address] [place] [address] [facility] Start: 05-09-2024 End: 05-09-2024 Patient encounter procedure 05/09/2024 2:30 PM EST Appointment [facility] [address] [place] [phone] [facility] Start: 04-28-2024 End: 04-28-2024 Patient encounter procedure 04/28/2024 3:00 PM EST Office Visit [facility] [address] [place] [phone] Candelaria Doshi MD [address] [place] [address] [facility] Start: 04-28-2024 End: 04-28-2025 Cardiac stress study Procedure Stress Test Cardiac Services Routine Chest pain, unspecified type Expected: 04/28/2024, Expires: 04/28/2025 [facility] Service Area Work Phone: Comment on above: Expected: 04/28/2024 , Expires: 04/28/2025 Start: 03-23-2024 Hepatitis B core antibody measurement [facility] Start: 03-23-2024 [facility] Start: 02-21-2024 COVID-19 Vaccine ( season) COVID-19 Vaccine ( season) [facility] Start: 02-21-2024 Influenza vaccination P [facility] Start: 12-15-2023 DTaP,Tdap and Td Vaccines (3 - Td or Tdap) DTaP,Tdap and Td Vaccines (3 - Td or Tdap) [facility] Start: 12-15-2023 DTaP/Tdap/Td Vaccine s (3 - Td or Tdap) DTaP/Tdap/Td Vaccines (3 - Td or Tdap) [facility] Start: 11-19-2023 Screening for malign ant neoplasm of colon Colon Cancer Screening [address] [facility] Start: 04-22-2023 FUV, Provider: Candelaria Doshi, Status: Pen, Time: 3:40 PM FUV, Provider: Candelaria Doshi, Status: Pen, Time: 3:[address] [facility] [employer] 250 DO Work Phone: Start: 02-20-2023 Influenza vaccination Influenza Vacc ine (#1) [facility] Start: 07-10-2022 FUV, Provider: Candelaria Doshi, Status: Pen, Time: 3:50 PM FUV, Provider: Candelaria Doshi, Status: Pen, Time: 3:50 PM [facility] Work Phone: Start: 1997 Hepatitis B Vaccines (1 of 3 - 19+ 3-dose series) Hepatitis B Vaccines (1 of 3 - 19+ 3-dose series) [facility] Start: 1996 Diabetes mellitus screening Diabetes Screening [facility] Start: 1996 Hepatitis C screening Hepatitis C [facility] Start: 1984 Pneumococcal Vaccine : Pediatrics (0 to 5 Years) and At-Risk Patients (6 to 64 Years) (1 - PCV) Pneumococcal Vaccine: Pediatrics (0 to 5 Years) and At-Risk Patients (6 to 64 Years) (1 - PCV) [facility] Start: 1984 Pneumococcal Vaccine : Pediatrics (0 to 5 Years) and At-Risk Patients (6 to 64 Years) (1 of 2 - PCV) Pneumococcal Vaccine: Pediatrics (0 to 5 Years) and At-Risk Patients (6 to 64 Years) (1 of 2 - PCV) [facility] Start: 11-19-1979 MMR Vaccines (1 of 1 - Standard series) MMR Vaccines (1 of 1 - Standard series) [facility] Start: 05-21-1979 COVID-19 Vaccine (#1) COVID-19 Vacci ne (#1) [facility] Start: 1978 Hepatitis B Vaccines (1 of 3 - 3-dose series) Hepatitis B Vaccines (1 of 3 - 3-dose series) [facility] Start: 1978 HIV screening HIV Screening [facility] Start: 1978 Lipid panel Lipid Panel [facility] Start: 1978 Screening for malign ant neoplasm of colon [facility] Start: 1978 Tobacco Counseling [facility] Start: 1978 Yearly Adult Physical Yearly Adult P hysical [facility] Hepatitis B virus surface Ab [Presence] in Serum [facility] Hepatitis B virus surface Ag [Presence] in Serum or Plasma by Immunoassay [facility] Hepatitis C virus Ig G Ab [Presence] in Serum or Plasma by Immunoassay [facility] Interferon gamma assay [facility] Mycobacterium tuberculosis stimulated gamma interferon [Interpretation] in Blood Qualitative [facility] Mycobacterium tuberculosis stimulated gamma interferon release by CD4+ and CD8+ T-cells [Units/volume] corrected for background in Blood [facility] Mycobacterium tuberculosis tuberculin stimulated gamma interferon [Presence] in Blood [facility] Immunizations Immunization Date Immunization Notes Care Provider Tommy bojorquez 12-14-2013 tetanus toxoid, redu tim diphtheria toxoid, and acellular pertussis vaccine, adsorbed Lawson March PAK Work Phone: [facility] [employer] DO Work Phone: 11-20-2013 tetanus toxoid, redu tim diphtheria toxoid, and acellular pertussis vaccine, adsorbed Lawson March PAK Work Phone: [facility] 250 DO Work Phone: Payers Date Payer Category Payer Self-pay 2022 [employer] [facility] [id number] 2022 Unknown 2022 Unknown [id number] 2012 Unknown [id number] 1978 Unknown [id number] [id number] 1978 Unknown [id number] [id number] 1978 Unknown [id number]. [id number] 1978 Unknown [id number]. [id number] 1978 Unknown [id number] [id number]. [id number] 1978 Unknown [id number] [id number]. [id number] 1978 Unknown [id number] [id number]. [id number] 1978 Unknown [id number] [id number]. [id number] 1978 Unknown [id number]. [id number] 1959 Unknown [id number] Unknown [id number] [id number] Social History Date Type Detail Facility Start: 04-22-2023 End: 10-19-2023 Current every day smoker Current every day smoker [facility] Comment on above: 1 ppd; 3 cups coffee daily; Start: 04-22-2023 End: 10-19-2023 Tobacco smoking status IDIS Smokes tobacco daily [facility] Work Phone: History of tobacco use Cigarette Smoker [facility] Work Phone: Start: 04-22-2023 End: 10-19-2023 Tobacco use and exposure Smokeless tobacco non-user [facility] Work Phone: Start: 04-22-2023 Alcohol intake Ex-drinker (finding) [facility] Work Phone: Start: 1980 Sex Assigned At Not on file [facility] Work Phone: Start: 04-22-2023 End: 02-10-2024 Gender identity Not on file [facility] Start: 04-12-2023 End: 04-28-2024 Exposure to SARS-CoV-2 (event) Not sure [facility] Start: 02-10-2024 End: 04-28-2024 Alcoholic beverage intake Current drinker of alcohol (finding) [facility] Adolescent depressio n screening assessment [address] [facility] Start: 02-10-2024 Alcohol Comment occiasonally [facility] Start: 02-20-2021 Tobacco smoking stat [facility] Smoker (finding) [facility] Start: 1978 Sex Assigned At Male [facility] Start: 04-28-2024 Alcohol Comment social [facility] Work Phone: Clinical Notes 04-22-2023 to 04-28-2024 Candelaria Doshi MD - 04/28/2024 3:00 PM ESTPatient InstructionsMoberta Doshi MD - 04/22/2023 3:40 PM EDTPatient Instructions Note Date & Type Note Facility 04-28-2024 History of Present illness Narrative Subjective Elise Sarabia is a 43 y.o. male Chief Complaint Annual Exam HPI Patient is here for follow-up continue management for previous evaluation for palpitation, remote evaluation for chest pain. Since last time I saw him he report his palpitation are overall acceptable. He does have a home heart rate monitoring that fails to demonstrate any significant arrhythmia. The patient recently has been complaining of ongoing chest pain there is no clear precipitating, alleviated or associated symptoms. It happens more frequently at night I suspect GI etiology. His last ischemic evaluation was more than 4 years ago. Assessment 1. Previous evaluation for palpitation with documentation of PVCs. One episode interpreted as possible supraventricular tachycardia. Symptoms markedly improved. He had few sporadic episode but no arrhythmia were documented on his heart rate monitoring device 2. Patient reports worsening chest pain I suspect likely GI but he does have some risk factor for ischemic heart disease 3. Previous evaluation for shortness of breath likely due to tobacco use. He reports resolution of that 4. Previous complaint of lightheadedness resolved 5. Tobacco use 6. Obesity 7. Possible anxiety Plan 1. I advised the patient to try to take Prilosec 40 mg once daily and Maalox as needed to see if his chest pain symptoms improved 2. I advised him to have a GXT 3. Patient was counseled regarding dietary modification, exercise, losing weight and smoking cessation 4. We will see him back in the office in 1 year 5. Patient was advised to notify me change in cardiac status or symptoms Review of Systems Cardiovascular: Positive for chest pain and palpitations. Vitals: 04/28/24 1500 BP: 144/88 BP Location: Right arm Patient Position: Sitting Pulse: 73 Weight: 103 kg (226 lb) Height: 1.829 m (6') EKG done in office today Objective Physical Exam Constitutional: Appearance: Normal appearance. HENT: Nose: Nose normal. Neck: Vascular: No carotid bruit. Cardiovascular: Rate and Rhythm: Normal rate. Pulses: Normal pulses. Heart sounds: Normal heart sounds. Pulmonary: Effort: Pulmonary effort is normal. Abdominal: General: Bowel sounds are normal. Palpations: Abdomen is soft. Musculoskeletal: General: Normal range of motion. Cervical back: Normal range of motion. Right lower leg: No edema. Left lower leg: No edema. Skin: General: Skin is warm and dry. Neurological: General: No focal deficit present. Mental Status: He is alert. Psychiatric: Mood and Affect: Mood normal. Behavior: Behavior normal. Thought Content: Thought content normal. Judgment: Judgment normal. Allergies Shellfish derived Current Medications Current Outpatient Medications: amitriptyline (Elavil) 25 mg tablet, Take 1 tablet (25 mg) by mouth 2 times a day., Disp: , Rfl: carvedilol (Coreg) 3.125 mg tablet, TAKE 1 TABLET BY MOUTH TWICE DAILY WITH MEALS, Disp: 180 tablet, Rfl: 3 cetirizine (ZyrTEC) 10 mg chewable tablet, Chew 1 tablet (10 mg) once daily., Disp: , Rfl: citalopram (CeleXA) 40 mg tablet, Take 1 tablet (40 mg) by mouth once daily., Disp: , Rfl: fish oil/om-3/E/folic/B6-B12 (CARDIOVID PLUS ORAL), Take 1 tablet by mouth 2 times a day., Disp: , Rfl: folic acid (Folvite) 1 mg tablet, Take 1 tablet (1 mg) by mouth early in the morning.., Disp: , Rfl: LORazepam (Ativan) 1 mg tablet, Take 1 tablet (1 mg) by mouth every 6 hours if needed for anxiety., Disp: , Rfl: magnesium 200 mg tablet, Take 1 tablet (200 mg) by mouth 2 times a day., Disp: , Rfl: methotrexate (Trexall) 2.5 mg tablet, Take 6 tablets (15 mg total) by mouth 1 (one) time per week., Disp: , Rfl: perphenazine 2 mg tablet, Take 1 tablet (2 mg) by mouth 2 times a day., Disp: , Rfl: omeprazole (PriLOSEC) [address] capsule, Take 1 capsule (40 mg) by mouth once daily in the morning. Take before meals. Do not crush or chew., Disp: 90 capsule, Rfl: 3 Assessment/Plan 1. Chest pain, unspecified type omeprazole (PriLOSEC) [address] capsule Stress Test ECG 12 Lead Follow Up In Cardiology 2. Palpitations Follow Up In Cardiology 3. Ventricular ectopic beats Follow Up In Cardiology 4. PAC (premature atrial contraction) 5. Shortness of breath 6. BMI 38.0-38.9,adult 7. Current smoker Scribe Attestation By signing my name below, I, Bonny Ortega LPN attest that this documentation has been prepared under the direction and in the presence of Candelaria Doshi MD. Provider Attestation - Scribe documentation All medical record entries made by the Scribe were at my direction and personally dictated by me. I have reviewed the chart and agree that the record accurately reflects my personal performance of the history, physical exam, discussion and plan. documented in this encounter [facility] Work Phone: 04-28-2024 Instructions Farzaneh Parr LPN - 04/28/2024 3:00 PM EST Please bring all medicines, vitamins, and herbal supplements with you when you come to the office. Prescriptions will not be filled unless you are compliant with your follow up appointments or have a follow up appointment scheduled as per instruction of your physician. Refills should be requested at the time of your visit. BMI was above normal measurement. Current weight: 103 kg (226 lb) Weight change since last visit (-) denotes wt loss 2 lbs Weight loss needed to achieve BMI 25: 42.1 Lbs Weight loss needed to achieve BMI 30: 5.3 Lbs Provided instructions on dietary changes Provided instructions on exercise. Maalox otc recommended documented in this encounter [facility] Work Phone: 04-22-2023 History of Present illness Narrative Subjective Elise Sarabia is a 42 y.o. male Chief Complaint Follow-up HPI Patient is here for follow-up continue management for previous evaluation for palpitation with documentation of sporadic PVCs, previous evaluation for shortness of breath and chest pain with negative cardiac work-up in the past. Since last time I saw him he denies any change in cardiac status or symptoms. He describes a palpitation. He does have a home heart rate monitoring device. This showed rare PACs. The patient described functional class I. He denies any cardiac symptomatology otherwise. Assessment 1. Previous evaluation for palpitation with documentation of PVCs. One episode interpreted as possible supraventricular tachycardia. Symptoms markedly improved. He did not tolerate magnesium. Recent palpitations seem to coincide with occasional PACs based on his home monitoring device. He denies any recent chest pain 2. Evaluation for chest pain with negative stress test continue to have good functional status. Occasional atypical chest pain reported 3. Previous evaluation for shortness of breath likely due to tobacco use. He reports resolution of that 4. Previous complaint of lightheadedness resolved 5. Tobacco use 6. Obesity 7. Possible anxiety Plan 1. I advised the patient to continue medical regimen but advised him to to take magnesium glycine 8 with meals 2. Result of his cardiac work-up noted and his recent home heart rate monitoring strips reviewed. His symptoms appear stable and I do not believe there is need to repeat his testing 3. I recommended observant approach 4. Patient was counseled regarding dietary modification, exercise, losing weight and smoking cessation 5. We will see him back in the office in 1 year with an EKG 5. Patient was advised to notify me change in cardiac status or symptoms Review of Systems All other systems reviewed and are negative. Visit Vitals BP 126/74 (BP Location: Left arm, Patient Position: Sitting) Pulse 82 Ht 1.829 m (6') Wt 102 kg (224 lb) BMI 30.38 kg/m Smoking Status Every Day BSA 2.28 m Objective Physical Exam Constitutional: Appearance: Normal appearance. He is normal weight. HENT: Nose: Nose normal. Neck: Vascular: No carotid bruit. Cardiovascular: Rate and Rhythm: Normal rate. Pulses: Normal pulses. Heart sounds: Normal heart sounds. Pulmonary: Effort: Pulmonary effort is normal. Abdominal: General: Bowel sounds are normal. Palpations: Abdomen is soft. Genitourinary: Rectum: Normal. Musculoskeletal: General: Normal range of motion. Cervical back: Normal range of motion. Right lower leg: No edema. Left lower leg: No edema. Skin: General: Skin is warm and dry. Neurological: General: No focal deficit present. Mental Status: He is alert. Psychiatric: Mood and Affect: Mood normal. Behavior: Behavior normal. Thought Content: Thought content normal. Judgment: Judgment normal. Current Medications Current Outpatient Medications: amitriptyline (Elavil) 25 mg tablet, Take 1 tablet (25 mg) by mouth 2 times a day., Disp: , Rfl: cetirizine (ZyrTEC) 10 mg chewable tablet, Chew 1 tablet (10 mg) once daily., Disp: , Rfl: citalopram (CeleXA) 40 mg tablet, Take 1 tablet (40 mg) by mouth once daily., Disp: , Rfl: fish oil/om-3/E/folic/B6-B12 (CARDIOVID PLUS ORAL), Take 1 tablet by mouth 2 times a day., Disp: , Rfl: LORazepam (Ativan) 1 mg tablet, Take 1 tablet (1 mg) by mouth every 6 hours if needed for anxiety., Disp: , Rfl: magnesium 200 mg tablet, Take 1 tablet (200 mg) by mouth 2 times a day., Disp: , Rfl: perphenazine 2 mg tablet, Take 1 tablet (2 mg) by mouth 2 times a day., Disp: , Rfl: carvedilol (Coreg) 3.125 mg tablet, Take 1 tablet (3.125 mg) by mouth 2 times a day with meals., Disp: 180 tablet, Rfl: 3 Assessment/Plan 1. Shortness of breath 2. Palpitations Follow Up In Cardiology carvedilol (Coreg) 3.125 mg tablet 3. Ventricular ectopic beats Follow Up In Cardiology carvedilol (Coreg) 3.125 mg tablet 4. PAC (premature atrial contraction) 5. BMI 38.0-38.9,adult documented in this encounter [facility] Work Phone: 04-22-2023 Instructions Adelfo Yang MA - 04/22/2023 3:40 PM EDT Please bring all medicines, vitamins, and herbal supplements with you when you come to the office. Prescriptions will not be filled unless you are compliant with your follow up appointments or have a follow up appointment scheduled as per instruction of your physician. Refills should be requested at the time of your visit. documented in this encounter [facility] Work Phone: Evaluation note Diagnosis Shortness of breath- Primary Palpitations Ventricular ectopic beats Other premature beats PAC (premature atrial contraction) Supraventricular premature beats BMI 38.0-38.9,adult documented in this encounter [facility] Work Phone: Evaluation noteNo assessment information available [facility] Work Phone: Evaluation note* Diagnosis Chest pain, unspecified type- Primary Palpitations Ventricular ectopic beats Other premature beats PAC (premature atrial contraction) Supraventricular premature beats Shortness of breath BMI 38.0-38.9,adult Current smoker documented in this encounter [facility] Work Phone: History of Present illness Narrative* Here for follow- up continue management for previous evaluation for few PVCs and palpitation, previous evaluation for chest pain and shortness of breath. Tobacco use. Since last time I saw him he reports functional class I. He denies complaint of lightheadedness, dizziness or syncope. He denies any chest pain. He remains fairly active and describe functional class I * Assessment * 1. Palpitation with documentation of PVCs. One episode interpreted as possible supraventricular tachycardia it is actually sinus tachycardia and followed heavy exertion. Marked improvement of his symptoms with low-dose magnesium and Coreg * 2. Evaluation for chest pain with negative stress test and no recurrent * 3. Shortness of breath likely due to tobacco use. Resolution * 4. Minor lightheadedness likely orthostatic. Report resolution * 5. Tobacco use * 6. Obesity * 7. Possible anxiety * Plan * 1. I advised the patient to continue medical regimen * 2. Result of his cardiac work-up noted and reviewed * 3. I recommended observant approach * 4. Patient was counseled regarding dietary modification, exercise, losing weight and smoking cessation * 5. We will see him back in the office in 1 year follow-up * 5. Follow-up in 1 year with an EKG * 6. Patient was advised to notify me change in cardiac status or symptoms [facility] DO Work Phone: History of Present illness Narrative* Patient is here for follow-up continue management for previous evaluation for palpitation with documentation of monomorphic sporadic PVCs, previous evaluation for chest pain and shortness of breath, obesity. Since last time I saw him he complained of occasional palpitation atypical chest pain. He reports functional class I. He denies lightheadedness, dizziness or syncope. * Assessment * 1. Palpitation with documentation of PVCs. One episode interpreted as possible supraventricular tachycardia it is actually sinus tachycardia and followed heavy exertion. Marked improvement of his symptoms with low-dose magnesium and Coreg he has not been taking magnesium because of diarrhea * 2. Evaluation for chest pain with negative stress test continue to have good functional status. Occasional atypical chest pain reported * 3. Shortness of breath likely due to tobacco use. He reports resolution of that * 4. Minor lightheadedness likely orthostatic resolved * 5. Tobacco use * 6. Obesity * 7. Possible anxiety * Plan * 1. I advised the patient to continue medical regimen but advised him to take his magnesium with meals * 2. Result of his cardiac work-up noted and reviewed. His symptoms appear stable and I do not believe there is need to repeat his testing * 3. I recommended observant approach * 4. Patient was counseled regarding dietary modification, exercise, losing weight and smoking cessation * 5. We will see him back in the office in 9 months * 5. Advised him to have a home heart rate monitoring device * 6. Patient was advised to notify me change in cardiac status or symptoms [facility] DO Work Phone: InstructionsNot on filedocumented in this encounter [facility] for referral (narrative)* Consultation (Routine) - Authorized Specialty Diagnoses / Procedures Referred By Rahul aguirre Referred To Contact Cardiology Diagnoses Palpitations Ventricular ectopic beats Procedures Follow Up In Cardiology Candelaria Doshi MD [address] [place] [address], [address] [address] Candelaria Doshi MD [address] [place] [address] 2, [address] [address] Referral ID Status Reason Start Date Expiration Date V isits Requested Visits Authorized [id number] Authorized 04/22/2023 04/21/2024 1 1 [facility] Work Phone: Summary Purpose Family History No Family History Records FoundUnknown Family Member Name Dates Details Family history of diabetes m ellitus: Mother, Father(V18.0, Z83.3) Status:Active Family history of myocardial infarction: Father(V17.3, Z82.49) Status:Active Unknown Family Member Name Dates Details Family history of diabetes m ellitus: Mother, Father(V18.0, Z83.3) Status:Active Family history of myocardial infarction: Father(V17.3, Z82.49) Status:Active Unknown Family Member Name Dates Details Family history of diabetes m ellitus: Mother, Father(V18.0, Z83.3) Status:Active Family history of myocardial infarction: Father(V17.3, Z82.49) Status:Active Unknown Family Member Name Dates Details Family history of diabetes m ellitus: Mother, Father(V18.0, Z83.3) Status:Active Family history of myocardial infarction: Father(V17.3, Z82.49) Status:Active Advance Directives No Advanced Directives Records Found Advance Directive Response Recorded Date/ Time Advance Directives No March 23, 2024 1:29pm Chief Complaint ELISE SARABIA is being seen for an annual follow-up of.ELISE SARABIA is being seen for an annual follow-up of. Chief Complaint and Reason for Visit Chief Complaint PSA, psoriasis, meds Additional Source Comments (unrecognized sect ion and content) No Status Records FoundNo Status Records FoundNo Status Records FoundNo Status Records FoundNo Status Records FoundNo Status Records FoundNo Status Records FoundNo Status Records FoundNo Status Records FoundNo Status Records Found INFORMATION SOURCE (unrecogn ized section and content) DATE CREATED AUTHOR 06/15/2020 [facility] DATE CREATED AUTHOR AUTHOR'S ORGANIZ ATION 01/11/2021 [facility] DATE CREATED AUTHOR AUTHOR'S ORGANIZ ATION 08/25/2021 [facility] DATE CREATED AUTHOR AUTHOR'S ORGANIZ ATION 07/29/2022 [facility] DATE CREATED AUTHOR AUTHOR'S ORGANIZ ATION 07/29/2022 [facility] DATE CREATED AUTHOR AUTHOR'S ORGANIZ ATION 10/02/2023 [facility] DATE CREATED AUTHOR AUTHOR'S ORGANIZ ATION 02/12/2024 [facility] DATE CREATED AUTHOR AUTHOR'S ORGANIZ ATION 04/03/2024 [facility] DATE CREATED AUTHOR AUTHOR'S ORGANIZ ATION 04/04/2024 [facility] DATE CREATED AUTHOR AUTHOR'S ORGANIZ ATION 04/30/2024 [facility] Reason for Visit (unrecogniz ed section and content) Reason Comments Follow-up 9 month Reason Comments Med Refill Reason Comments Annual Exam Specialty Diagnoses / Procedures Referred By Rahul aguirre Referred To Contact Cardiology Diagnoses Palpitations Ventricular ectopic beats Procedures Follow Up In Cardiology Candelaria Doshi MD [address] [facility], [place] [id number] Phone: tel: fax: Candelaria Doshi MD [facility] [facility] [address], [address] [address] Phone: tel: fax: Referral ID Status Reason Start Date Expiration Date V isits Requested Visits Authorized [id number] Authorized 04/22/2023 04/21/2024 1 1 Care Teams (unrecognized sec tion and content) Drop Man Relationship Specialty Start Date End Date Lawson Hodge DO [address], [place] [address] PCP - General 06/13/20 Drop Man Relationship Specialty Start Date End Date Lawson Hodge DO [address], [place] [address] PCP - General Family Medicine 04/04/22 Team Status: Active Member Role Status Dates Hipolito Ruiz MD Primary Care Provider Active Team Status: Inactive Member Role Status Dates Hipolito Ruiz MD Primary Care Provider Active Sta rt: March 23, 2024 End: March 23, 2024 Srinivas Moncada MD Attending Provider Active St art: March 23, 2024 End: March 23, 2024 Drop Man Relationship Specialty Start Date End Date Lawson Hodge DO PCP - General 06/13/20 Goals (unrecognized section and content) Goals may be documented in a n alternate section FOR RECORDS PERTAINING TO PATIENTS WHO ARE OR HAVE BEEN ENROLLED IN A CHEMICAL DEPENDENCY/SUBSTANCEABUSE PROGRAM, SOME INFORMATION MAY BE OMITTED. This clinical summary was aggregated from multiple sources. Caution should be exercised in using it in the provision of clinical care. This summary normalizes information from multiple sources, and as a consequence, information in this document may materially change the coding, format and clinical context of patient data. In addition, data may be omitted in some cases. CLINICAL DECISIONS SHOULD BE BASED ON THE PRIMARY CLINICAL RECORDS. [facility], [facility]. provides no warranty or guarantee of the accuracy or completeness of information in this document.
[2024-05-10 06:58] LABS: Basophils Absolute Auto 0.1 10^3/uL (0.0-0.1); Basophils Percent Auto 1.2 % (0.2-2.0); Eosinophils Absolute Auto 0.4 10^3/uL (0.0-0.7); Eosinophils Percent Auto 4.5 % (0.9-7.0); Hematocrit 43.5 % (42.0-54.0); Hemoglobin 14.9 g/dL (14.0-18.0); Immature Granulocytes Abs Auto 0.02 10^3/uL (0.00-0.03); Immature Granulocytes Pct Auto 0.2 % (0.0-0.5); Lymphocytes Absolute Auto 3.3 10^3/uL (1.2-3.8); Lymphocytes Percent Auto 38.3 % (20.5-60.0); Mean Corpuscular HGB Conc 34.3 g/dL (29.9-35.2); Mean Corpuscular Hemoglobin 31.2 pg (25.9-34.0); Mean Platelet Volume 11.9 fL (9.5-13.5); Monocytes Absolute Auto 0.6 10^3/uL (0.3-0.8); Monocytes Percent Auto 7.4 % (1.7-12.0); Neutrophils Absolute Auto 4.2 10^3/uL (1.4-6.5); Neutrophils Percent Auto 48.4 % (43.0-75.0); Platelet Count 220 10^3/uL (150-450); Red Blood Count 4.78 10^6/uL (4.70-6.10); Red Cell Distribution Width 13.3 % (11.0-15.0); White Blood Count 8.7 10^3/uL (4.0-11.0)
[2024-05-10 07:11] LABS: Erythrocyte Sedimentation Rate 18 mm/hr (<=15)
[2024-05-10 07:20] LABS: Alanine Aminotransferase 53 U/L (16-63); Albumin Level 3.4 g/dL (3.4-5.0); Alkaline Phosphatase 73 U/L (46-116); Anion Gap 14.2; Aspartate Amino Transferase 22 U/L (15-37); BUN Creatinine Ratio 13.3; Bilirubin Total 0.4 mg/dL (0.2-1.0); Carbon Dioxide 27.7 mmol/L (21.0-32.0); Chloride 104 mmol/L (98-107); Estimated GFR (African America >60 (>=60 mL/min/1.73m^2); Estimated GFR (Non-African Ame >60 (>=60 mL/min/1.73m^2); Globulin 3.5 g/dL; Glucose 107 mg/dL (74-106); Potassium 3.9 mmol/L (3.5-5.1); Sodium 142 mmol/L (136-145); Total Protein 6.9 g/dL (6.4-8.2)
== END 2024-05-10 06:34 | disposition home or self-care (01) ==
LOC: LAB 06:33
PROVIDERS: PCP Family Medicine; Visit Provider Internal Medicine Rheumatology
DX: L40.9 Psoriasis, unspecified (principal); Z51.81 Encounter for therapeutic drug level monitoring
CPT/HCPCS: 36415; 80053; 85025; 85652

== ENCOUNTER 2024-07-23 11:02 | Outpatient (OUT) | payer BC, SELFPAY ==
--- OUTSIDE RECORDS SUMMARY | 2024-07-23 11:06 | XMS_ITS | CCD ---
Author Organization [facility] Care Team Providers Care Glass Ribbon Machine Operator Assistant Name Role Phone ALEX, DR ARIZA Consulting Unavailable ALEX, DR ARIZA Admitting Unavailable LONNIE, DR LAWSON March Primary Care Unavailable ALEX, DR ARIZA Attending Unavailable RivesvilleAmy saravia Consulting Unavailable EDDA, DR TO Espana Admitting Unavailable EDDA, DR TO Espana Attending Unavailable EDDA, DR TO [place]span[place] Consulting Unavailable LONNIE, DR LAWSON March Primary Care Unavailable Ritter, Winanatoly Consulting Unavailable ALEX, DR ARIZA Attending Unavailable ALEX, DR ARIZA Consulting Unavailable LONNIE, DR LAWSON March Primary Care Unavailable ALEX, DR ARIZA Admitting Unavailable AHDOOT, PIPER Consulting Unavailable Lawson Hodge Unavailable Unavailable Unavailable Lawson Hodge Primary Care Unavailab kalina Doshi, Dr. [place] Attending Unavaila nael Doshi, Dr. [place] Referring Unavaila Lawson Castellanos DO Primary Care Provider CHARIS SCHOFIELD Attending Unavailable LAWSON HODGE Referring Unavailable LAWSON HODGE Primary Care Unavailable Lawson Hodge DO Primary Care Provider [phone] MD Hipolito Ruiz Primary Care Provider [phone] MD Srinivas Moncada Attending Provider SRINIVAS MONCADA Referring Unavailable Srinivas Moncada Admitting Unavailable Srinivas Moncada Attending Unavailable Hipolito Ruiz Primary Care Unavailable Lawson Hodge DO Primary Care Provider CANDELARIA DOSHI Attending Unavailable CANDELARIA DOSHI Referring Unavailable LAWSON HODGE Primary Care Unavailab PAOLO Dodd Attending Unavailable FURLONG, LAWSON G Referring Unavailable FURLONG, LAWSON G Primary Care Unavailable FURLONG, LAWSON G Attending Unavailable FURLONG, LAWSON G Referring Unavailable FURLONG, LAWSON G Primary Care Unavailable FURLONG, LAWSON G Attending Unavailable FURLONG, LAWSON G Referring Unavailable FURLONG, LAWSON G Primary Care Unavailable FURLONG, LAWSON G Referring Unavailable FURLONG, LAWSON G Primary Care Unavailable CANDELARIA DOSHI Referring Unavailable FURLONG, LAWSON WATT Primary Care Unavailab le Allergies Allergy Classification Reported Allergen(s) Allergy Type Date of Onset Reaction(s) Facility Shellfish (1 source) Shellfish Food Allergy 3 [facility] Repository (4 sources) Penicillins; Translations: [Penicillins] Allergy to drug (finding) [facility] [employer] 250 DO Work Phone: (4 sources) Shellfish-deriv ed Products; Translations: [Shellfish-deri portillo Products] [facility]: (7 sources) Shellfish; Translations: [shellfish derived] Propensity to adverse reactions 1 Anaphylaxis [facility] (6 sources) SHELLFISH CONTAINING PRODUCTS; Translations: [SHELLFISH CONTAINING PRODUCTS] Propensity to adverse reactions to food (disorder) 7 Anaphylaxis [facility] Repository (6 sources) Penicillin; Translations: [penicillin G] Drug Allergy 1 Other (See Comments) [facility] Medications Current Medications Medication Drug Class(es) Dates Sig (Normalized) Sig (Original) amitriptyline hydrochloride 25 mg oral tablet (10 sources) Tricyclic Antidepressant Start: 09-21-2023 take 1 tablet by mouth at bedtime amitriptyline (ELAVIL) 25 mg tablet Indications: Generalized anxiety disorder Take 1 tablet (25 mg total) by mouth in the morning and at bedtime. 180 tablet 3 09/21/2023 Active apremilast 30 mg oral tablet (2 sources) Start: 02-10-2024 End: 05-12-2024 take 1 tablet by mouth in the morning, then take 1 tablet by mouth at bedtime apremilast (OTEZLA) 30 mg tablet Indications: Psoriasis Take 1 tablet (30 mg total) by mouth in the morning and 1 tablet (30 mg total) before bedtime. 180 tablet 1 02/10/2024 05/12/2024 Discontinued (Side effects) carvedilol 3.125 mg oral tablet (11 sources) alpha-Adrenergic Jaden, beta-Adrenergic Jaden Start: 10-21-2021 End: 04-21-2024 take 1 tablet by mouth in the morning, then take 1 tablet by mouth at bedtime carvediloL (COREG) 3.125 mg tablet Take 1 tablet (3.125 mg total) by mouth in the morning and 1 tablet (3.125 mg total) before bedtime. 10/28/2022 Active cetirizine hydrochloride 10 mg chewable tablet (10 sources) Histamine-1 Receptor Antagonist cetirizine (ZyrTEC) 10 MG chewable tablet Chew 1 tablet (10 mg total) and swallow in the morning. Active Zyrtec 10 MG TAB S TAKE 1 TABLET DAILY. Quantity: 0 Refills: 0 Ordered: 11-Jul-2021 DO Active citalopram 40 mg oral tablet (12 sources) Serotonin Reuptake Inhibitor Start: 06-20-2024 citalopram (CeleXA) 40 mg tablet TAKE 1 TABLET DAILY 90 tablet 2 06/20/2024 Active Start: 12-23-2023 End: 06-20-2024 citalopram (CeleXA) 40 mg ta blet take 1 tablet daily 90 tablet 03/22/2024 06/20/2024 Discontinued fish oil/om-3/E/folic/B6-B12 (CARDIOVID PLUS ORAL) (3 sources) take 1 tablet by mouth twice daily fish oil/om-3/E/folic/B6-B12 (CARDIOVID PLUS ORAL) Take 1 tablet by mouth 2 times a day. Active take 1 tablet by anand th twice daily fish oil/om-3/E/folic/B6-B12 (CARDIOVID PLUS ORAL) Take 1 tablet by mouth 2 times a day. 0 Active folic acid 1 mg oral tablet (4 sources) Start: 04-21-2024 take 1 tablet by mouth in the morning folic acid (FOLVITE) 1 mg tablet Take 1 tablet (1 mg total) by mouth in the morning. 04/21/2024 Active ibuprofen 800 mg oral tablet (3 sources) Nonsteroidal Anti-inflammatory Drug Start: 10-19-2023 take 1 tablet by mouth every eight hours as needed for pain ibuprofen (MOTRIN) 800 mg tablet Indications: Strain of lumbar paraspinous muscle, subsequent encounter Take 1 tablet (800 mg total) by mouth every 8 (eight) hours as needed for pain. 60 tablet 10/19/2023 Active LORazepam 1 mg oral tablet (8 sources) Benzodiazepine Start: 03-10-2024 take 1 tablet [...] 06-Jun-2022 DO Start : 06-Jun-2022 Active Magnesium (10 sources) take 1 tablet by anand th [...] DO Active methotrexate 2.5 mg oral tablet (4 sources) Folate Analog Metabolic Inhibitor Start: 04-19-2024 methotrexate 2.5 mg chemo tablet Take 6 tablets by mouth 04/19/2024 Active omeprazole 40 mg delayed release oral capsule (4 sources) Proton Pump Inhibitor Start: 04-28-2024 End: 04-28-2025 omeprazole (PriLOSEC) 40 mg capsule Take 1 capsule (40 mg total) by mouth. 04/28/2024 04/28/2025 Active ondansetron 8 mg disintegrating oral tablet (3 sources) Serotonin-3 Receptor Antagonist Start: 02-16-2024 take 1 tablet by mouth every eight hours as needed for nausea and vomiting ondansetron ODT (ZOFRAN ODT) 8 mg disintegrating tablet Dissolve 1 tablet (8 mg total) on tongue every 8 (eight) hours as needed for nausea or vomiting. 20 tablet 02/16/2024 Active perphenazine 2 mg oral tablet (10 sources) Phenothiazine Start: 09-21-2023 take 1 tablet by mouth at bedtime perphenazine (TRILAFON) 2 mg tablet Indications: Generalized anxiety disorder Take 1 tablet (2 mg total) by mouth in the morning and at bedtime. 180 tablet 3 09/21/2023 Active triamcinolone acetonide 5 mg/ml topical cream (3 sources) Corticosteroid Start: 02-16-2024 triamcinolone (KENALOG) 0.5 % cream Apply 1 Application topically in the morning and 1 Application before bedtime. 30 g 1 02/16/2024 Active Completed/Discontinued Medications Medication Drug Class(es) Dates Sig (Normalized) Sig (Original) [place] 3 CAPS (4 sources) [place] 3 CAPS VERONIQUE E 2 CAPSULE Daily Quantity: 0 Refills: 0 Ordered: 11-Jul-2021 DO Active Problems Active Problems Problem Classification Problem Date Documented Date Episodic/Chronic Anxiety disorders (12 sources) Anxiety disorder, unspecified; Translations: [Generalized anxiety disorder] Onset: 11-14-2016 Resolved: 03-19-2018 11-14-2016 Chronic Cardiac dysrhythmias (20 sources) Ventricular premature beats; Translations: [Other premature beats] Onset: 04-22-2023 04-22-2023 Chronic Conditions associated with dizziness or vertigo (1 source) Dizziness and giddiness; Translations: [DIZZINESS AND GIDDINESS] Onset: 01-10-2021 Episodic Esophageal disorders (5 sources) Gastroesophageal reflux disease; Translations: [Gastro-esophageal reflux disease without esophagitis] Onset: 09-16-2012 09-08-2022 Chronic Mood disorders (4 sources) Major depressive disorder, recurrent, in full remission; Translations: [Recurrent major depression in full remission] Onset: 07-02-2017 10-01-2023 Chronic Nonspecific chest pain (20 sources) Chest pain, unspecified; Translations: [Chest pain] Onset: 01-08-2021 Episodic Other aftercare (1 source) Other middle or intermediate school principal (current) drug therapy; Translations: [OTH LOAD BUILDER CURRENT DRUG THERAPY] Onset: 01-10-2021 Episodic Other circulatory disease (1 source) Orthostatic hypotension; Translations: [ORTHOSTATIC HYPOTENSION] Onset: 01-10-2021 Episodic Other inflammatory condition of skin (5 sources) Psoriasis; Translations: [Psoriasis, unspecified] Onset: 02-10-2024 02-26-2024 Chronic Other inflammatory condition of skin (1 source) Arthropathic psoriasis, unspecified; Translations: [Arthropathic psoriasis, unspecified] Onset: 03-23-2024 Chronic Other inflammatory condition of skin (1 source) Psoriasis, unspecified; Translations: [Psoriasis, unspecified] Onset: 02-26-2024 Chronic Other lower respiratory disease (3 sources) Shortness of breath; Translations: [SHORTNESS OF BREATH] Onset: 01-10-2021 Episodic Other nutritional; endocrine; and metabolic disorders (4 sources) Obesity; Translations: [Obesity, unspecified] Chronic Other nutritional; endocrine; and metabolic disorders (5 sources) Body mass index 30+ - obesity; Translations: [Body mass index (BMI) 38.0-38.9, adult] Onset: 04-22-2023 04-22-2023 Chronic Other nutritional; endocrine; and metabolic disorders (2 sources) Body mass index (BMI) 38.0-38.9, adult; Translations: [Body mass index (BMI) 38.0-38.9, adult] Onset: 04-22-2023 Chronic Other nutritional; endocrine; and metabolic disorders (3 sources) Obesity caused by energy imbalance; Translations: [Class 1 obesity due to excess calories with serious comorbidity and body mass index (BMI) of 30.0 to 30.9 in adult] Onset: 05-12-2024 05-12-2024 Chronic Substance-related disorders (10 sources) Nicotine dependence, cigarettes, uncomplicated; Translations: [Smokes tobacco daily] Onset: 01-10-2021 04-28-2024 Chronic Comment on above: 1 ppd; Unclassified (1 source) Annual Exam Onset: 05-12-2024 Unclassified (1 source) back spasms Onset: 10-19-2023 Past or Other Problems Problem Classification Problem Date Documented Da te Episodic/Chronic Cardiac dysrhythmias (19 sources) Palpitations; Translations: [Palpitations] Onset: 04-15-2020 Episodic Inflammatory conditions of male genital organs (1 source) Epididymitis; Translations: [EPIDIDYMITIS] Onset: 10-02-2020 Episodic Mood disorders (3 sources) Mood disorders Onset: 02-10-2024 Resolved: 05-12-2024 02-10-2024 Other lower respiratory disease (9 sources) Dyspnea; Translations: [Shortness of breath] Onset: 04-22-2023 04-22-2023 Episodic Other male genital disorders (3 sources) Left testicular pain; Translations: [LEFT TESTICULAR PAIN] Onset: 09-30-2020 Episodic Residual codes; unclassified (4 sources) Tobacco user; Translations: [Tobacco use] Onset: 11-14-2016 11-14-2016 Episodic Residual codes; unclassified (1 source) Tobacco use; Translations: [Tobacco use] Onset: 11-14-2016 Episodic Sprains and strains (1 source) Strain of muscle, fascia and tendon of lower back, subsequent encounter; Translations: [Strain of muscle, fascia and tendon of lower back, subsequent encounter] Onset: 10-19-2023 Episodic Unclassified (3 sources) Onset: 10-19-2023 10-19-2023 Results Test Name Value Interpretation Reference Range Facility Cardiac stress study [facility] 05-31-[address], [place] [address] Exercise Stress Test Patient Name: HARSHAD SARABIA Ordering Provider: [id number] CANDELARIA DOSHI Study Date: 05/31/2024 Reading Physician: [id number] Doshi MD MRN/PID: [id number] Supervising Physician: [id number] Kemi De Jesus MD, [facility] Fellow: Date of /Age: 5 1980 / 43 years Fellow: Gender: M Nurse: Chris Linares RN Admission Status: Event Manager: LILA Height: 182.88 cm Technologist: Weight: 102.51 kg Additional Staff: BSA: 2.24 m2 BMI: 30.65 kg/m2 Patient Location: Study Type: STRESS TEST ONLY Diagnosis/ICD: Chest pain, unspecified-R07.9 Indication: Chest Pain CPT Codes: Stress Test Interpretation-01709 ; Stress Test Supervision-[id number] Falls Risk: Low: Patient has low risk for sustaining a fall; environmental safety interventions in place. Study Details: Correct procedure and correct patient verified verbally. Patient History: Allergies: None. Patient Performance: The patient exercised to stage III on a Jluis protocol for 7 minutes and 11 seconds, achieving 8.80 METS. The peak heart rate achieved was 150 bpm, which was 86 % of the age predicted target heart rate of 174 bpm. The resting blood pressure was 120/82 mmHg with a heart rate of 73 bpm. The standing blood pressure was 118/78 mmHg with a heart rate of 70 bpm. The patient's functional capacity was below average. The patient developed fatigue during the stress exam. The symptoms resolved with rest. The blood pressure response was normal. The test was terminated due to: fatigue. Sinus tachycardia. Double Product (HR x BP): 249. Baseline ECG: Resting ECG showed normal sinus rhythm. Normal sinus rhythm. Stress Stage Data: + +- --+------+-------+ HR Sys BP Lopez BP + +- --+------+-------+ Baseline Resting 73 120 82 + +- --+------+-------+ Baseline Standing 70 118 78 + +- --+------+-------+ Stage I 118 144 84 + +- --+------+-------+ Stage II 139 156 86 + +- --+------+-------+ Stage III 150 166 86 + +- --+------+-------+ Recovery ECG: The heart rate recovery was normal. + +---+-- ----+-------+ HR Sys BP Lopez BP + +---+-- ----+-------+ Recovery I 150 166 86 + +---+-- ----+-------+ Recovery II 139 168 82 + +---+-- ----+-------+ Recovery III 101 146 92 + +---+-- ----+-------+ Recovery IV 91 128 82 + +---+-- ----+-------+ Summary: 1. Normal graded exercise stress test without diagnostic ST-T changes for ischemia. 2. No provoked chest pain or arrhythmia. 3. Appropriate hemodynamic response to exercise. 4. Limited to fair exercise tolerance. 5. Normal heart recovery phase. 6. Patient exercised for a total of 7 minutes 11 seconds achieving 85% of maximum predicted heart rate and workload of 8.8 METS. 7. Adequate level of stress achieved. [id number] Doshi MD Electronically signed on 05/31/2024 at 5:44:05 PM Final Candelaria Almanzar MD - 05/31/[address], [address] [place] [address] Exercise Stress Test Patient Name: HARSHAD SARABIA Ordering Provider: [id number] DOSHI Study Date: 05/31/2024 Reading Physician: Alexandria Doshi MD MRN/PID: [id number] Supervising Physician: [id number] Kemi De Jesus MD, [facility] Fellow: Date of /Age: 5 1980 / 43 years Fellow: Gender: M Nurse: Chris Linares RN Admission Status: Event Manager: LILA Height: 182.88 cm Technologist: Weight: 102.51 kg Additional Staff: BSA: 2.24 m2 BMI: 30.65 kg/m2 Patient Location: Study Type: STRESS TEST ONLY Diagnosis/ICD: Chest pain, unspecified-R07.9 Indication: Chest Pain CPT Codes: Stress Test Interpretation-90374 ; Stress Test Supervision-[id number] Falls Risk: Low: Patient has low risk for sustaining a fall; environmental safety interventions in place. Study Details: Correct procedure and correct patient verified verbally. Patient History: Allergies: None. Patient Performance: The patient exercised to stage III on a Jluis protocol for 7 minutes and 11 seconds, achieving 8.80 METS. The peak heart rate achieved was 150 bpm, which was 86 % of the age predicted target heart rate of 174 bpm. The resting blood pressure was 120/82 mmHg with a heart rate of 73 bpm. The standing blood pressure was 118/78 mmHg with a heart rate of 70 bpm. The patient's functional capacity was below average. The patient developed fatigue during the stress exam. The symptoms resolved with rest. The blood pressure response was normal. The test was terminated due to: fatigue. Sinus tachycardia. Double Product (HR x BP): 249. Baseline ECG: Resting ECG showed normal sinus rhythm. Normal sinus rhythm. Stress Stage Data: + +- --+------+-------+ HR Sys BP Lopez BP + +- --+------+-------+ Baseline Resting 73 120 82 + +- --+------+-------+ Baseline Standing 70 118 78 + +- --+------+-------+ Stage I 118 144 84 + +- --+------+-------+ Stage II 139 156 86 + +- --+------+-------+ Stage III 150 166 86 + +- --+------+-------+ Recovery ECG: The heart rate recovery was normal. + +---+-- ----+-------+ HR Sys BP Lopez BP + +---+-- ----+-------+ Recovery I 150 166 86 + +---+-- ----+-------+ Recovery II 139 168 82 + +---+-- ----+-------+ Recovery III 101 146 92 + +---+-- ----+-------+ Recovery IV 91 128 82 + +---+-- ----+-------+ Summary: 1. Normal graded exercise stress test without diagnostic ST-T changes for ischemia. 2. No provoked chest pain or arrhythmia. 3. Appropriate hemodynamic response to exercise. 4. Limited to fair exercise tolerance. 5. Normal heart recovery phase. 6. Patient exercised for a total of 7 minutes 11 seconds achieving 85% of maximum predicted heart rate and workload of 8.8 METS. 7. Adequate level of stress achieved. [id number] Candelaria Doshi MD Electronically signed on 05/31/2024 at 5:44:05 PM Final [facility] Work Phone: [facility] Work Phone: STRESS TEST ONLY STRESS TEST ONLY [address], [address] [place] [address] Exercise Stress Test Patient Name: HARSHAD SARABIA Ordering Provider: [id number] CANDELARIA DOSHI Study Date: 05/31/2024 Reading Physician: [id number] Candelaria Doshi MD MRN/PID: [id number] Supervising Physician: [id number] Kemi De Jesus MD, [facility] Fellow: Date of /Age: 5 1980 / 43 years Fellow: Gender: M Nurse: Chris Linares RN Admission Status: Event Manager: LILA Height: 182.88 cm Technologist: Weight: 102.51 kg Additional Staff: BSA: 2.24 m2 BMI: 30.65 kg/m2 Patient Location: Study Type: STRESS TEST ONLY Diagnosis/ICD: Chest pain, unspecified-R07.9 Indication: Chest Pain CPT Codes: Stress Test Interpretation-86766 ; Stress Test Supervision-60151 Falls Risk: Low: Patient has low risk for sustaining a fall; environmental safety interventions in place. Study Details: Correct procedure and correct patient verified verbally. Patient History: Allergies: None. Patient Performance: The patient exercised to stage III on a Jluis protocol for 7 minutes and 11 seconds, achieving 8.80 METS. The peak heart rate achieved was 150 bpm, which was 86 % of the age predicted target heart rate of 174 bpm. The resting blood pressure was 120/82 mmHg with a heart rate of 73 bpm. The standing blood pressure was 118/78 mmHg with a heart rate of 70 bpm. The patient's functional capacity was below average. The patient developed fatigue during the stress exam. The symptoms resolved with rest. The blood pressure response was normal. The test was terminated due to: fatigue. Sinus tachycardia. Double Product (HR x BP): 249. Baseline ECG: Resting ECG showed normal sinus rhythm. Normal sinus rhythm. Stress Stage Data: + +- --+------+-------+ HR Sys BP Lopez BP + +- --+------+-------+ Baseline Resting 73 120 82 + +- --+------+-------+ Baseline Standing 70 118 78 + +- --+------+-------+ Stage I 118 144 84 + +- --+------+-------+ Stage II 139 156 86 + +- --+------+-------+ Stage III 150 166 86 + +- --+------+-------+ Recovery ECG: The heart rate recovery was normal. + +---+-- ----+-------+ HR Sys BP Lopez BP + +---+-- ----+-------+ Recovery I 150 166 86 + +---+-- ----+-------+ Recovery II 139 168 82 + +---+-- ----+-------+ Recovery III 101 146 92 + +---+-- ----+-------+ Recovery IV 91 128 82 + +---+-- ----+-------+ Summary: 1. Normal graded exercise stress test without diagnostic ST-T changes for ischemia. 2. No provoked chest pain or arrhythmia. 3. Appropriate hemodynamic response to exercise. 4. Limited to fair exercise tolerance. 5. Normal heart recovery phase. 6. Patient exercised for a total of 7 minutes 11 seconds achieving 85% of maximum predicted heart rate and workload of 8.8 METS. 7. Adequate level of stress achieved. [id number] Candelaria Doshi MD Electronically signed on 05/31/2024 at 5:44:05 PM Final [facility] COMPREHENSIVE METABOLIC PANE Oscar 05-12-2024 Albumin [Mass/Vol] 4.3 g/dL Normal 3.2-5.3 [facility] Comment on above: Performed By: #### Zackary RECINOS, [id number] #### [facility] ([id number]) [address], [address] [place] [address] ALP [Catalytic activity/Vol] 60 U/L Normal 39-130 [facility] Comment on above: Performed By: #### Zackary RECINOS 59058-7 #### [facility] ([id number]) [address], [address] [place] [address] ALT [Catalytic activity/Vol] 41 U/L High 0-40 [facility] Comment on above: Performed By: #### Zackary RECINOS, 25856-2 #### [facility] ([id number]) [address], [address] [place] [address] Anion gap [Moles/Vol] 8 mmol/L Normal 5-15 [facility] Comment on above: Performed By: #### Zackary RECINOS, 51067-2 #### [facility] ([id number]) [address], [address] [place] [address] AST [Catalytic activity/Vol] 28 U/L Normal 0-41 [facility] Comment on above: Performed By: #### Zacakry RECINOS, 58083-2 #### [facility] ([id number]) [address], [address] [place], [place] [address] Bilirubin [Mass/Vol] 0.4 mg/dL Normal 0.3-1.2 [facility] Comment on above: Performed By: #### Zackary RECINOS, 25419-4 #### [facility] ([id number]) [address], [address] [place] [address] Calcium [Mass/Vol] 9.5 mg/dL Normal 8.5-10.5 [facility] Comment on above: Performed By: #### Zackary RECINOS, 06805-3 #### [facility] ([id number]) [address], [address] [place] [address] Chloride [Moles/Vol] 103 mmol/L Normal 98-109 [facility] Comment on above: Performed By: #### Zackary RECINOS, 98979-8 #### [facility] ([id number]) [address], [address] [place] [address] CO2 [Moles/Vol] 26 mmol/L Normal 22-32 [facility] Comment on above: Performed By: #### Zackary RECINOS, 37403-9 #### [facility] ([id number]) [address] [place] [address] Creatinine [Mass/Vol] 0.94 mg/dL Normal 0.60-1.30 [facility] Comment on above: Result Comment: METH OD TRACEABLE TO IDMS STANDARD Performed By: #### Zackary RECINOS, 51982-6 #### [facility] ([id number]) [address] [place] [address] eGFR (CKD-EPI) NON-RACE DEPENDENT >90 Normal >59 [facility] Comment on above: Result Comment: Reported eGFR is based on the CKD-EPI 2020 equation that does not use a race coefficient. Performed By: #### Zackary RECINOS, 82831-0 #### [facility] ([id number]) [address], [address] [place] [address] Glucose [Mass/Vol] 98 mg/dL Normal 65-99 [facility] Comment on above: Performed By: #### Zackary RECINOS, 94398-6 #### [facility] ([id number]) [address], [address] [place] [address] Potassium [Moles/Vol] 4.2 mmol/L Normal 3.5-5.0 [facility] Comment on above: Performed By: #### C JORJE, 22360-2 #### [facility] ([id number]) [address], [address] [place] [address] Protein [Mass/Vol] 7.2 g/dL Normal 6.0-8.0 [facility] Comment on above: Performed By: #### C JORJE, 33039-6 #### [facility] ([id number]) [address], [address] [place] [address] Sodium [Moles/Vol] 137 mmol/L Normal 134-146 [facility] Comment on above: Performed By: #### C JORJE, 06325-8 #### [facility] ([id number]) [address], [address] [place] [address] Urea nitrogen [Mass/Vol] 15 mg/dL Normal 5-23 [facility] [facility] Comment on above: Performed By: #### C JORJE, 39754-4 #### [facility] ([id number]) [address], [address] [place] [address] Lipid 1996 panelon 4 Cholesterol [Mass/Vol] 214 mg/dL High 150-200 [facility] Comment on above: Performed By: #### C JORJE, 01557-7 #### [facility] ([id number]) [address], [address] [place] [address] Cholesterol in HDL [Mass/Vol] 46 mg/dL Normal >39 [facility] Comment on above: Result Comment: HDL <40 mg/dL - High Risk HDL > or = 40mg/dL- Desirable HDL >60 mg/dL - Negative Risk Performed By: #### Zackary RECINOS, 03342-0 #### [facility] ([id number]) [address], [address] [address] Cholesterol in LDL [Mass/Vol] 135 mg/dL High <130 [facility] Comment on above: Result Comment: LDL <100 mg/dL - Desirable LDL >160 mg/dL - High Risk Performed By: #### Zackary RECINOS, 28555-3 #### [facility] ([id number]) [address], [address] [address] Cholesterol in VLDL [Mass/Vol] 33 mg/dL High 0-30 [facility] Comment on above: Performed By: #### Zackary RECINOS, 99601-3 #### [facility] ([id number]) [address] [address] CHOLESTEROL:HDL 4.7 Normal 1.0-5.0 [facility] Comment on above: Performed By: #### Zackary RECINOS, 98024-3 #### [facility] ([id number]) [address] [address] Triglyceride [Mass/Vol] 165 mg/dL High 27-150 [facility] Comment on above: Performed By: #### Zackary RECINOS, 26434-0 #### [facility] ([id number]) [address] [address] ECG 12 Leadon 04-28-2024 Normal sinus rhythm [facility] Work Phone: XR CHEST 2 VIEWSon [...] report is generated using voice recognition reporting (Med Access). On occasion [employer] erroneously drops words from the report or [...] report is generated using voice recognition reporting (Med Access). On occasion [employer] erroneously drops words from the report or replaces the spoken word with similar sounding words. Please call with any questions/concerns regarding this report.* Dictated and transcribed 03/28/24/dpd This report has been electronically signed and approved by the interpreting radiologist. Electronically Signed Jackson Gandhi II, M.D. 2024-03-28 15:39:27 Normal Not Available Alanine aminotransferase [En zymatic activity/volume] in Serum or PlasmaOrdered By: Sriinvas Moncada on 03-23-2024 ALT [Catalytic activity/Vol] 40 U/L Normal [facility] Comment on above: Performed By: #### H BSAB, QUANT TB, HBSAG, HCV RX PCR, HBCAB #### [facility] , #### CRP, CMP, ESR, CBC #### [facility] [address] [place] [address] Albumin [Mass/volume] in Ser um or Plasma by Bromocresol green (BCG) dye binding methoOrdered By: Srinivas Moncada on 03-23-2024 Albumin BCG dye [Mass/Vol] 4.3 g/dL 3.5-5.7 [facility] Alkaline phosphatase [Enzyma tic activity/volume] in Serum or PlasmaOrdered By: Srinivas Moncada on 03-23-2024 ALP [Catalytic activity/Vol] 75 U/L Normal 34-104 [facility] Comment on above: Performed By: #### H BSAB, QUANT TB, HBSAG, HCV RX PCR, HBCAB #### [facility] , #### CRP, CMP, ESR, CBC #### [facility] [address] Aspartate aminotransferase [ Enzymatic activity/volume] in Serum or PlasmaOrdered By: Srinivsa Castrorow on 03-23-2024 AST [Catalytic activity/Vol] 25 U/L Normal 13-39 [facility] Comment on above: Performed By: #### H BSAB, QUANT TB, HBSAG, HCV RX PCR, HBCAB #### [facility] , #### CRP, CMP, ESR, CBC #### [facility] [address] Automated basophil %Ordered By: Srinivas Castrorow on 03-23-2024 Basophils/100 WBC (Bld) 0.9 % Normal . [facility] Comment on above: Performed By: #### H BSAB, QUANT TB, HBSAG, HCV RX PCR, HBCAB #### [facility] , #### CRP, CMP, ESR, CBC #### [facility] [address] [place] [address] [place] Automated basophil countOrde red By: Srinivas Castrorow on 03-23-2024 Basophils (Bld) [#/Vol] 0.1 10*3/uL Normal 0.0-0.2 [facility] Comment on above: Performed By: #### H BSAB, QUANT TB, HBSAG, HCV RX PCR, HBCAB #### [facility] , #### CRP, CMP, ESR, CBC #### [address] Automated blood monocyte cou ntOrdered By: Srinivas Moncada on 03-23-2024 Monocytes (Bld) [#/Vol] 0.8 10*3/uL Normal 0.0-0.8 [facility] Comment on above: Performed By: #### H BSAB, QUANT TB, HBSAG, HCV RX PCR, HBCAB #### [facility] , #### CRP, CMP, ESR, CBC #### [address] Automated eosinophil %Ordere d By: Srinivas Castrorow on 03-23-2024 Eosinophils/100 WBC (Bld) 6.5 % Normal . [facility] Comment on above: Performed By: #### H BSAB, QUANT TB, HBSAG, HCV RX PCR, HBCAB #### [facility] , #### CRP, CMP, ESR, CBC #### [address] Automated eosinophil countOr dered By: Srinivas Castrorow on 03-23-2024 Eosinophils (Bld) [#/Vol] 0.6 10*3/uL High 0.0-0.45 [facility] Comment on above: Performed By: #### H BSAB, QUANT TB, HBSAG, HCV RX PCR, HBCAB #### [facility] , #### CRP, CMP, ESR, CBC #### [address] Automated monocyte %Ordered By: Srinivas Louisa on 03-23-2024 Monocytes/100 WBC (Bld) 8.6 % Normal . [facility] Comment on above: Performed By: #### H BSAB, QUANT TB, HBSAG, HCV RX PCR, HBCAB #### [facility] , #### CRP, CMP, ESR, CBC #### [address] Automated neutrophil %Ordere d By: Srinivas Moncada on 03-23-2024 Neutrophils/100 WBC (Bld) 50.8 % Normal . [facility] Comment on above: Performed By: #### H BSAB, QUANT TB, HBSAG, HCV RX PCR, HBCAB #### [facility] , #### CRP, CMP, ESR, CBC #### [facility] [address] Bilirubin.total [Mass/volume ] in Serum or PlasmaOrdered By: Srinivas Louisa on 03-23-2024 Bilirubin [Mass/Vol] 0.5 mg/dL Normal 0.3-1.0 [facility] Comment on above: Performed By: #### H BSAB, QUANT TB, HBSAG, HCV RX PCR, HBCAB #### [facility] , #### CRP, CMP, ESR, CBC #### [address] C reactive protein [Mass/vol ume] in Serum or PlasmaOrdered By: Srinivas Moncada on 03-23-2024 CRP [Mass/Vol] 1.1 mg/dL High 0.0-0.5 [facility] C-Reactive Proteinon 024 C-Reactive Protein 1.1 mg/dL High 0.0-0.5 [facility] Comment on above: Result Comment: PERF ORMED BY: [address] [place] [address] PATHOLOGIST STEWARD/STEWARDESS LOUNGE CHIQUI TIJERINA M.D. Performed By: #### H BSAB, QUANT TB, HBSAG, HCV RX PCR, HBCAB #### [facility] , #### CRP, CMP, ESR, CBC #### [facility] [address] [place] [address] [place] Calcium [Mass/volume] in Ser um or PlasmaOrdered By: Srinivas Moncada on 03-23-2024 Calcium [Mass/Vol] 9.5 mg/dL Normal 8.6-10.3 [facility] Comment on above: Performed By: #### H BSAB, QUANT TB, HBSAG, HCV RX PCR, HBCAB #### [facility] , #### CRP, CMP, ESR, CBC #### [address] Carbon dioxide, total [Moles /volume] in Serum or PlasmaOrdered By: Srinivas Louisa on 03-23-2024 CO2 [Moles/Vol] 27.5 mmol/L Normal 21.0-31.0 [facility] Comment on above: Performed By: #### H BSAB, QUANT TB, HBSAG, HCV RX PCR, HBCAB #### [facility] , #### CRP, CMP, ESR, CBC #### [address] Chloride [Moles/volume] in S preeti or PlasmaOrdered By: Srinivas Moncada on 03-23-2024 Chloride [Moles/Vol] 105 mmol/L Normal 98-107 [facility] Comment on above: Performed By: #### H BSAB, QUANT TB, HBSAG, HCV RX PCR, HBCAB #### [facility] , #### CRP, CMP, ESR, CBC #### [address] Complete Blood Count Auto Di ffon 03-23-2024 Mean Corpuscular HGB Conc 34.4 g/dL Normal 32.5-35.6 [facility] Comment on above: Performed By: #### H BSAB, QUANT TB, HBSAG, HCV RX PCR, HBCAB #### [facility] , #### CRP, CMP, ESR, CBC #### [address] NRBC% 0.2 /100{WBC} Normal 0-0.5 [facility] Comment on above: Performed By: #### H BSAB, QUANT TB, HBSAG, HCV RX PCR, HBCAB #### [facility] , #### CRP, CMP, ESR, CBC #### [facility] [address] Comprehensive Metabolic Pane oscar 03-23-2024 Albumin [Mass/Vol] 4.3 g/dL Normal 3.5-5.7 [facility] Comment on above: Performed By: #### H BSAB, QUANT TB, HBSAG, HCV RX PCR, HBCAB #### [facility] , #### CRP, CMP, ESR, CBC #### [address] GFR/1.73 sq M.predicted MDRD (S/P/Bld) [Vol rate/Area] mL/min/{1.73_m2} Normal [facility] Comment on above: Performed By: #### H BSAB, QUANT TB, HBSAG, HCV RX PCR, HBCAB #### [facility] , #### CRP, CMP, ESR, CBC #### [address] Creatinine [Mass/volume] in Serum or PlasmaOrdered By: Srinivas Moncada on 03-23-2024 Creatinine [Mass/Vol] 0.98 mg/dL Normal 0.70-1.30 [facility] Comment on above: Performed By: #### H BSAB, QUANT TB, HBSAG, HCV RX PCR, HBCAB #### [facility] , #### CRP, CMP, ESR, CBC #### [address] Erythrocyte Sedimentation Ra wilton 03-23-2024 ESR (Bld) [Velocity] 20 mm/h High 0-14 [facility] Comment on above: Result Comment: PERF ORMED BY: [place] [address] PATHOLOGIST STEWARD/STEWARDESS LOUNGE CHIQUI TIJERINA M.D. Performed By: #### H BSAB, QUANT TB, HBSAG, HCV RX PCR, HBCAB #### [facility] , #### CRP, CMP, ESR, CBC #### [address] Erythrocyte distribution wid th [Ratio] by Automated countOrdered By: Srinivas Castrorow on 03-23-2024 Erythrocyte distribution width (RBC) [Ratio] 13.4 % Normal 12.0-14.8 [facility] Comment on above: Performed By: #### H BSAB, QUANT TB, HBSAG, HCV RX PCR, HBCAB #### [facility] , #### CRP, CMP, ESR, CBC #### [facility] [address] Erythrocyte sedimentation ra te by Photometric methodOrdered By: Srniivassushma Moncada on 03-23-2024 ESR Photometric method (Bld) [Velocity] 20 mm/hr High 0-14 [facility] Erythrocytes [#/volume] in B lood by Automated countOrdered By: Srinivas Moncada on 03-23-2024 RBC (Bld) [#/Vol] 4.96 10*6/uL Normal 3.90-5.60 [facility] Comment on above: Performed By: #### H BSAB, QUANT TB, HBSAG, HCV RX PCR, HBCAB #### [facility] , #### CRP, CMP, ESR, CBC #### [facility] [address] [place] [address] Glucose [Mass/volume] in Ser um or PlasmaOrdered By: Srinivas Moncada on 03-23-2024 Glucose [Mass/Vol] 106 mg/dL High 70-100 [facility] Comment on above: ADA recommended refe rence rangeRandom Glucose Reference Range is dependent on time and content of last meal. Glucose of more than 200 mg/dL in a nonstressed, ambulatory subject supports the diagnosis of Diabetes Mellitus. Result Comment: Pala om Glucose Reference Range is dependent on time and content of last meal. Glucose of more than 200 mg/dL in a nonstressed, ambulatory subject supports the diagnosis of Diabetes Mellitus. ADA recommended reference range Performed By: #### H BSAB, QUANT TB, HBSAG, HCV RX PCR, HBCAB #### [facility] , #### CRP, CMP, ESR, CBC #### [facility] [address] [place] [address] Hematocrit [Volume Fraction] of Blood by Automated countOrdered By: Srinivas Moncada on 03-23-2024 Hematocrit (Bld) [Volume fraction] 44.0 % Normal 38.8-50.0 [facility] Comment on above: Performed By: #### H BSAB, QUANT TB, HBSAG, HCV RX PCR, HBCAB #### [facility] , #### CRP, CMP, ESR, CBC #### [address] Hemoglobin [Mass/volume] in BloodOrdered By: Srinivas Moncada on 03-23-2024 Hemoglobin (Bld) [Mass/Vol] 15.1 g/dL Normal 13.0-17.0 [facility] Comment on above: Performed By: #### H BSAB, QUANT TB, HBSAG, HCV RX PCR, HBCAB #### [facility] , #### CRP, CMP, ESR, CBC #### [address] Hep C Ab wRfx to Qnt PCRon 1 Hepatitis C Virus Antibody Non-Reactive Normal Non Reactive [facility] Comment on above: Performed By: #### H BSAB, QUANT TB, HBSAG, HCV RX PCR, HBCAB #### [facility] , #### CRP, CMP, ESR, CBC #### [facility] [address] [place] [address] Interpretation Hepatitis C Comment Normal . [facility] Comment on above: Result Comment: Not infected with HCV unless early or acute infection is suspected (which may be delayed in an immunocompromised individual), or other evidence exists to indicate HCV infection. Performed By: #### H BSAB, QUANT TB, HBSAG, HCV RX PCR, HBCAB #### [facility] , #### CRP, CMP, ESR, CBC #### [facility] [address] [place] [address] Hepatitis B Core Antibodyon 03-23-2024 Hepatitis B Core Antibody Negative Normal Negative [facility] Comment on above: Result Comment: Perf ormed at: - [facility] [address] [id number] Bagging Machine Operator: Denny Walton PhD, Phone: [phone] Performed By: #### H BSAB, QUANT TB, HBSAG, HCV RX PCR, HBCAB #### [facility] , #### CRP, CMP, ESR, CBC #### [facility] [address] [place] [address] Hepatitis B Surface Antibody on 03-23-2024 Hepatitis B Surface Antibody Non-Reactive Normal . [facility] Comment on above: Result Comment: [...] , #### CRP, CMP, ESR, CBC #### [facility] [address] [place] [address] Hepatitis B Surface Antigeno n 03-23-2024 HBsAg Screen Negative Normal Negative [facility] Comment on above: Result Comment: PERF ORMED BY: [place] [address] PATHOLOGIST STEWARD/STEWARDESS [employer]GE CHIQUI TIJERINA M.D. Performed By: #### H BSAB, QUANT TB, HBSAG, HCV RX PCR, HBCAB #### [facility] , #### CRP, CMP, ESR, CBC #### [facility] [address] [place] [address] Leukocytes [#/volume] correc meenakshi for nucleated erythrocytes in Blood by Automated counOrdered By: Srinivas Moncada on 03-23-2024 WBC corrected for nucl RBC Auto (Bld) [#/Vol] 8.7 10*3/uL 4.1-10.5 [facility] Leukocytes [#/volume] in Blo od by Automated countOrdered By: Srinivas Castrorow on 03-23-2024 WBC (Bld) [#/Vol] 8.7 10*3/uL Normal 4.1-10.5 [facility] Comment on above: Performed By: #### H BSAB, QUANT TB, HBSAG, HCV RX PCR, HBCAB #### [facility] , #### CRP, CMP, ESR, CBC #### [address] Lymphocytes [#/volume] in Bl ood by Automated countOrdered By: Srinivas Castrorow on 03-23-2024 Lymphocytes (Bld) [#/Vol] 2.9 10*3/uL Normal 1.00-4.8 [facility] Comment on above: Performed By: #### H BSAB, QUANT TB, HBSAG, HCV RX PCR, HBCAB #### [facility] , #### CRP, CMP, ESR, CBC #### [address] Lymphocytes/100 leukocytes i n Blood by Automated countOrdered By: Srinivas Louisa on 03-23-2024 Lymphocytes/100 WBC (Bld) 33.2 % Normal . [facility] Comment on above: Performed By: #### H BSAB, QUANT TB, HBSAG, HCV RX PCR, HBCAB #### [facility] , #### CRP, CMP, ESR, CBC #### [address] MCH [Entitic mass] by Automa meenakshi countOrdered By: Srinivas Castrorow on 03-23-2024 MCH (RBC) [Entitic mass] 30.5 pg Normal 27.5-35.2 [facility] Comment on above: Performed By: #### H BSAB, QUANT TB, HBSAG, HCV RX PCR, HBCAB #### [facility] , #### CRP, CMP, ESR, CBC #### [address] MCHC Auto (RBC) [Mass/Vol]Or dered By: Srinivas Moncada on 03-23-2024 MCHC (RBC) [Mass/Vol] 34.4 g/dL 32.5-35.6 [facility] MCV [Entitic volume] by Auto mated countOrdered By: Srinivas Moncada on 03-23-2024 MCV (RBC) [Entitic vol] 88.6 fL Normal 83.5-101 [facility] Comment on above: Performed By: #### H BSAB, QUANT TB, HBSAG, HCV RX PCR, HBCAB #### [facility] , #### CRP, CMP, ESR, CBC #### [facility] [address] Neutrophils [#/volume] in Bl ood by Automated countOrdered By: Srinivas Moncada on 03-23-2024 Neutrophils (Bld) [#/Vol] 4.4 10*3/uL Normal 1.8-7.7 [facility] Comment on above: Performed By: #### H BSAB, QUANT TB, HBSAG, HCV RX PCR, HBCAB #### [facility] , #### CRP, CMP, ESR, CBC #### [facility] [address] [place] [address] No Panel InformationOrdered By: Srinivas Moncada on 03-23-2024 Estimated GFR (CKD-EPI) > 60.0 mL/Min [facility] Creatinine Clearance (Chem N/A [facility] Nucleated erythrocytes [Pres ence] in Blood by Automated countOrdered By: Srinivas Moncada on 03-23-2024 Nucleated RBC Auto Ql (Bld) 0.2 /100{WBC} 0-0.5 [facility] Platelet mean volume [Entiti c volume] in Blood by Automated countOrdered By: Srinivas Moncada on 03-23-2024 Platelet mean volume (Bld) [Entitic vol] 11.5 fL High 6.6-10.1 [facility] Comment on above: Performed By: #### H BSAB, QUANT TB, HBSAG, HCV RX PCR, HBCAB #### [facility] , #### CRP, CMP, ESR, CBC #### [facility] [address] [place] [address] [place] Platelets [#/volume] in Bloo d by Automated countOrdered By: Srinivas Moncada on 03-23-2024 Platelets (Bld) [#/Vol] 190 10*3/uL Normal 150-450 [facility] Comment on above: Performed By: #### H BSAB, QUANT TB, HBSAG, HCV RX PCR, HBCAB #### [facility] , #### CRP, CMP, ESR, CBC #### [facility] [address] [place] [id number] [place] Potassium [Moles/volume] in Serum or PlasmaOrdered By: Srinivas Louisa on 03-23-2024 Potassium [Moles/Vol] 4.3 mmol/L Normal 3.5-5.1 [facility] Comment on above: Performed By: #### H BSAB, QUANT TB, HBSAG, HCV RX PCR, HBCAB #### [facility] , #### CRP, CMP, ESR, CBC #### [facility] [address] [place] [id number] [place] Protein [Mass/volume] in Ser um or PlasmaOrdered By: Srinivas Castrorow on 03-23-2024 Protein [Mass/Vol] 6.6 g/dL Normal 6.4-8.9 [facility] Comment on above: Performed By: #### H BSAB, QUANT TB, HBSAG, HCV RX PCR, HBCAB #### [facility] , #### CRP, CMP, ESR, CBC #### [facility] [address] [place] [id number] [place] QuantiFERON TB Goldon 2023 QFTB Criteria Comment Normal . [facility] Comment on above: [...] , #### CRP, CMP, ESR, CBC #### [address] Quant TB Ag Value 0.03 Normal . [facility] Comment on above: Performed By: #### H BSAB, QUANT TB, HBSAG, HCV RX PCR, HBCAB #### [facility] , #### CRP, CMP, ESR, CBC #### [address] Quant TB Gold Plus Negative Normal Negative [facility] Comment on above: [...] interferon gamma. Chemiluminescence immunoassay methodology Performed at: [facility] [employer] [id number] Bagging Machine Operator: Denny Walton PhD, Phone: [phone] PERFORMED BY: [place] [address] PATHOLOGIST STEWARD/STEWARDESS LOUNGE CHIQUI TIJERINA M.D. Performed By: #### H BSAB, QUANT TB, HBSAG, HCV RX PCR, HBCAB #### [facility] , #### CRP, CMP, ESR, CBC #### [address] Quant TB2 Ag Value 0.01 Normal . [facility] Comment on above: Performed By: #### H BSAB, QUANT TB, HBSAG, HCV RX PCR, HBCAB #### [facility] , #### CRP, CMP, ESR, CBC #### [address] Quantiferon Nil Value 0.00 Normal . [facility] Comment on above: Performed By: #### H BSAB, QUANT TB, HBSAG, HCV RX PCR, HBCAB #### [facility] , #### CRP, CMP, ESR, CBC #### [address] Quantiferon TB Mitogen >10.00 Normal . [facility] Comment on above: Performed By: #### H BSAB, QUANT TB, HBSAG, HCV RX PCR, HBCAB #### [facility] , #### CRP, CMP, ESR, CBC #### [address] Serum globulin measurement b y calculation (mass/volume)Ordered By: Srinivas Moncada on 03-23-2024 Globulin (S) [Mass/Vol] 2.3 g/dL Normal [facility] Comment on above: Performed By: #### H BSAB, QUANT TB, HBSAG, HCV RX PCR, HBCAB #### [facility] , #### CRP, CMP, ESR, CBC #### [address] Serum or plasma albumin/glob ulin mass ratioOrdered By: Srinivas Moncada on 03-23-2024 Albumin/Globulin [Mass ratio] 1.9 {ratio} Normal [facility] Comment on above: Performed By: #### H BSAB, QUANT TB, HBSAG, HCV RX PCR, HBCAB #### [facility] , #### CRP, CMP, ESR, CBC #### [address] Serum or plasma anion gap de terminationOrdered By: Srinivas Moncada on 03-23-2024 Anion gap [Moles/Vol] 9.8 mmol/L Normal 6.0-15.0 [facility] Comment on above: Performed By: #### H BSAB, QUANT TB, HBSAG, HCV RX PCR, HBCAB #### [facility] , #### CRP, CMP, ESR, CBC #### [facility] [address] Sodium [Moles/volume] in Ser um or PlasmaOrdered By: Srinivas Moncada on 03-23-2024 Sodium [Moles/Vol] 138 mmol/L Normal 136-145 [facility] Comment on above: Performed By: #### H BSAB, QUANT TB, HBSAG, HCV RX PCR, HBCAB #### [facility] , #### CRP, CMP, ESR, CBC #### [address] Urea nitrogen [Mass/volume] in Serum or PlasmaOrdered By: Srinivas Moncada on 03-23-2024 Urea nitrogen [Mass/Vol] 14 mg/dL Normal 7-25 [facility] Comment on above: Performed By: #### H BSAB, QUANT TB, HBSAG, HCV RX PCR, HBCAB #### [facility] , #### CRP, CMP, ESR, CBC #### [address] Office Visit (Cardiology)on 07-28-2022 Follow-up visit Diagnoses/Problems [...] Weight Tips; Status:Complete - Retrospective Authorization; Done: [id number] Some eating tips that can help you lose weight.; Status:Complete - Retrospective Authorization; Done: [id number] SocHx: Current every day smoker Tobacco Use Screening; Status:Complete; Done: [id number] You need to quit smoking.; Status:Complete - Retrospective Authorization; Done: [id number] You need to stop smoking. Though it is not easy, more than half of all adult smokers have quit. We encourage you to write down all the reasons you should quit smoking and set a quit date for yourself. Ask us how we can help. You may also call 5-831-WXPBMontrue TechnologiesNOW for free resources and assistance.; Status:Complete - Retrospective Authorization; Done: [id number] Patient Instructions Please bring all medicines, vitamins, [...] and treadmill exercise tolerance test Chief Complaint HARSHAD SARABIA is being seen for an annual [...] 200 MG Oral TabletTAKE 2 TABLET Daily [place] 3 CAPSTAKE 2 CAPSULE Daily Perphenazine 2 MG Oral TabletTake 1 tablet twice daily Zyrtec 10 MG TABSTAKE 1 TABLET DAILY. Allergies Medication Penicillins Recorded By: Snehal hZeng; 06/12/2021 11:54:21 AM diarrhea, nausea Shellfish-derived Products [...] Recorded: 28Jul2022 01:10PM Heart Rate82, L Radial [id number], LUE, Sitting Lopez (more content not included)... Normal [facility] Tobacco Screening.on 023 Adult depression screening assessment No [facility] [address] DO Work Phone: Fall risk assessment a) No falls within the last year -[facility] [address] DO Work Phone: Tobacco use status CP a) Yes M -[facility] 250 DO Work Phone: Tobacco Screening. Yes [facility] 250 DO Work Phone: COMPREHENSIVE METABOLIC PANE [facility] 08-25-2021 Albumin [Mass/Vol] 4.3 g/dL Normal 3.6-5.1 [facility] Comment on above: Performed By: #### 4 96, 47521, 7600 #### [facility] [place] [address] Machinist Apprentice: David Granados MD Albumin/Globulin [Mass ratio] 1.4 {ratio} Normal 1.0-2.5 [facility] Comment on above: Performed By: #### 4 96, 34290, 0 #### [facility] [place] [address] Machinist Apprentice: David Granados MD ALP [Catalytic activity/Vol] 60 U/L Normal 36-130 [facility] Comment on above: Performed By: #### 4 96, 95397, 7600 #### [facility] [place] [address] Machinist Apprentice: David Granados MD ALT [Catalytic activity/Vol] 49 U/L High 9-46 [facility] Comment on above: Performed By: #### 4 96, 69013, 7600 #### [facility] [place] [address] Machinist Apprentice: David Granados MD AST [Catalytic activity/Vol] 24 U/L Normal 10-40 [facility] Comment on above: Performed By: #### 4 96, 93315, 7600 #### [facility] [place] [address] Machinist Apprentice: David Granados MD Bilirubin [Mass/Vol] 0.5 mg/dL Normal 0.2-1.2 [facility] Comment on above: Performed By: #### 4 96, 53608, 7600 #### [facility] of [place] [address] Machinist Apprentice: David Granados MD BUN/CREATININE RATIO NOT APPLICABLE Normal 6-22 [facility] Comment on above: Performed By: #### 4 96, 55823, 7600 #### [facility] of [address], [address] [place] [address] Machinist Apprentice: David Granados MD Calcium [Mass/Vol] 9.7 mg/dL Normal 8.6-10.3 [facility] Comment on above: Performed By: #### 4 96, 11217, 7600 #### [facility] [place] [address] Machinist Apprentice: David Granados MD Chloride [Moles/Vol] 104 mmol/L Normal 98-110 [facility] Comment on above: Performed By: #### 4 96, 26847, 7600 #### [facility] [place] [address] Machinist Apprentice: David Granados MD CO2 [Moles/Vol] 28 mmol/L Normal 20-32 [facility] Comment on above: Performed By: #### 4 96, 46977, 7600 #### [facility] [place] [address] Machinist Apprentice: David Granados MD Creatinine [Mass/Vol] 1.01 mg/dL Normal 0.60-1.35 [facility] Comment on above: Performed By: #### 4 96, 84035, 7600 #### [facility] [place] [address] Machinist Apprentice: David Granados MD eGFR NON-AFR. AUSTRALIAN 91 mL/min/1.73m2 Normal > OR = 60 [facility] Comment on above: Performed By: #### 4 96, 92922, 7600 #### [facility] of [place] [address]30 Machinist Apprentice: David Granados MD GFR/1.73 sq M.predicted among blacks MDRD (S/P/Bld) [Vol rate/Area] 106 mL/min/{1.73_m2} Normal > OR = 60 [facility] Comment on above: Performed By: #### 4 96, 48383, 7600 #### [facility] [address], [address] [place] [address] Machinist Apprentice: David Granados MD Globulin (S) [Mass/Vol] 3.0 g/dL Normal 1.9-3.7 [facility] Comment on above: Performed By: #### 4 96, 09089, 7600 #### [facility] [place] [address] Machinist Apprentice: David Granados MD Glucose [Mass/Vol] 96 mg/dL Normal 65-99 [facility] Comment on above: Result Comment: Fasting reference interval Performed By: #### 4 96, 93784, 7600 #### [facility] [place] [address] Machinist Apprentice: David Granados MD Potassium [Moles/Vol] 4.5 mmol/L Normal 3.5-5.[address] [facility] Comment on above: Performed By: #### 4 96, 04688, 7600 #### [facility] [place] [address] Machinist Apprentice: David Granados MD Protein [Mass/Vol] 7.3 g/dL Normal 6.1-8.1 [facility] Comment on above: Performed By: #### 4 96, 25446, 7600 #### [facility] [place] [address] Machinist Apprentice: David Granados MD Sodium [Moles/Vol] 138 mmol/L Normal 135-146 [facility] Comment on above: Performed By: #### 4 96, 74245, 7600 #### [facility] [place] [address]1420 Machinist Apprentice: David Granados MD Urea nitrogen [Mass/Vol] 12 mg/dL Normal 7-25 [facility] Comment on above: Performed By: #### 4 , 34378, 7600 #### [facility] [address], [address] [place] [address] Machinist Apprentice: David Granados MD HEMOGLOBIN A1con 08-25-2021 HEMOGLOBIN [...] diabetes for children. Performed By: #### 4 , 10890, 0 #### [facility] [address], [address] [place] [address] Machinist Apprentice: David Granados MD LIPID PANEL, STANDARDon Cholesterol [Mass/Vol] 249 mg/dL High <200 Qu est [facility] Comment on above: Order Comment: FASTI NG:YES FASTING: YES Performed By: #### 4 , 84799, 0 #### [facility] [address], [address] [place] [address] Machinist Apprentice: David Granados MD Cholesterol in HDL [Mass/Vol] 44 mg/dL Normal > OR = 40 [facility] Comment on above: Order Comment: FASTI NG:YES FASTING: YES Performed By: #### 4 96, 75229, 7600 #### [facility] [address], [address] [place] [address] Machinist Apprentice: David Granados MD Cholesterol in LDL [Mass/Vol] [...] LDL-C. Marcos GRULLON et al. JON. 2013;310(19): 7744-8926 (http://[email or web address]) Performed By: #### 4 96, 33222, 7600 #### [facility] [address], [address] [place] [address] Machinist Apprentice: David Grandaos MD Cholesterol.total/Lori sterol in HDL [Mass ratio] 5.7 {ratio} High <5.0 [facility] Comment on above: Order Comment: FASTI NG:YES FASTING: YES Performed By: #### 4 96, 52075, 0 #### [facility] [address], [address] [place] [address] Machinist Apprentice: David Granados MD NON HDL CHOLESTEROL 205 mg/dL (calc) High <130 [facility] Comment on above: Order Comment: FASTI NG:YES FASTING: YES Result Comment: For patients with diabetes plus 1 major ASCVD risk factor, treating to a non-HDL-C goal of <100 mg/dL (LDL-C of <70 mg/dL) is considered a therapeutic option. Performed By: #### 4 96, 76810, 7600 #### [facility] [address], [address] [place] [address] Machinist Apprentice: David Granados MD Triglyceride [Mass/Vol] 152 mg/dL High <150 Q [facility] Comment on above: Order Comment: FASTI NG:YES FASTING: YES Performed By: #### 4 96, 13109, 7600 #### [facility] [address], [address] [place] [address] Machinist Apprentice: David Granados MD Tobacco Screening.on 022 Tobacco use status CPHS a) Yes [facility] [facility] DO Work Phone: BNPon 01-08-2021 Natriuretic peptide B (Bld) [Mass/Vol] 65.0 pg/mL Normal <=450.0 [facility] Comment on above: Performed By: #### P T, DDIM, PTT #### [facility] [address] [place] [address] Clint Sisi CBC AUTO DIFFon 01-08-2021 BASO # 0.1 103/ul Normal 0.0-0.1 [facility] Comment on above: Performed By: #### C BC #### [facility] [address] [place], [place] [address] Clint Sisi Basophils/100 WBC (Bld) 0.9 % Normal 0.2-2.0 [facility] Comment on above: Performed By: #### C BC #### [facility] [address] [place], [place] [address] Clint Sisi EO # 0.3 103/ul Normal 0.0-0.7 [facility] Comment on above: Performed By: #### C BC #### [facility] [address] [place], [place] [address] Clint Sisi Eosinophils/100 WBC (Bld) 3.6 % Normal 0.9-7.0 [facility] Comment on above: Performed By: #### C BC #### [facility] [address] [place], [place] [address] Clint Sisi Erythrocyte distribution width (RBC) [Ratio] 13.0 % Normal 11.0-15.0 [facility] Comment on above: Performed By: #### C BC #### [facility] [address] [place], [place] [address] Clint Sisi Hematocrit (Bld) [Volume fraction] 47.9 % Normal 42.0-54.0 [facility] Comment on above: Performed By: #### C BC #### [facility] [address] [place], [place] [address] Clint Sisi Hemoglobin (Bld) [Mass/Vol] 16.1 g/dL Normal 14.0-18.0 [facility] Comment on above: Performed By: #### C BC #### [facility] [address] [id number] Clint Sisi IG # 0.04 10e3/ul Critically high 0.00-0.03 [facility] Comment on above: Performed By: #### C BC #### [facility] [address] [id number] Clint Sisi IG % 0.5 % Normal 0.0-0.5 [facility] Comment on above: Performed By: #### C BC #### [facility] [address] [place] [address] Clint Sisi LYMPH # 3.3 103/ul Normal 1.2-3.8 [facility] Comment on above: Performed By: #### C BC #### [facility] [address] [place] [address] Clint Sisi Lymphocytes/100 WBC (Bld) 38.0 % Normal 20.5-60.0 [facility] Comment on above: Performed By: #### C BC #### [facility] [address] [place], [place] [address] Clint Sisi MANUAL DIFF REQ NO Normal [facility] Comment on above: Performed By: #### C BC #### [facility] [address] [place], [place] [address] Clint Sisi MCH (RBC) [Entitic mass] 29.8 pg Normal 25.9-34.0 [facility] Comment on above: Performed By: #### C BC #### [facility] [address] [place] [address] Clint Sisi MCHC (RBC) [Mass/Vol] 33.6 g/dL Normal 29.9-35.2 [facility] Comment on above: Performed By: #### C BC #### [facility] [address] [place], [place] [address] Clint Sisi MCV (RBC) [Entitic vol] 88.7 fL Normal 80.0-94.0 [facility] Comment on above: Performed By: #### C BC #### [facility] [address] [place], [place] [address] Clint Laird MONO # 0.8 103/ul Normal 0.3-0.8 [facility] Comment on above: Performed By: #### C BC #### [facility] [address] [place], [place] [address] Clint Laird Monocytes/100 WBC (Bld) 8.7 % Normal 1.7-12.0 [facility] Comment on above: Performed By: #### C BC #### [facility] [address] [place] [address] Clintcolin Mayeren NEUT # 4.2 103/ul Normal 1.4-6.5 [facility] Comment on above: Performed By: #### C BC #### [facility] [address] [place] [address] Clint Laird Neutrophils/100 WBC (Bld) 48.3 % Normal 43.0-75.0 [facility] Comment on above: Performed By: #### C BC #### [facility] [address] [place], [place] [address] Clint Laird Platelet mean volume (Bld) [Entitic vol] 12.0 fL Normal 9.5-13.5 [facility] Comment on above: Performed By: #### C BC #### [facility] [address] [place], [place] [address] Clint Mayeren PLT 218 103/ul Normal 150-450 [facility] Comment on above: Performed By: #### C BC #### [facility] [address] [place] [address] Clint Sisi RBC 5.40 106/ul Normal 4.70-6.10 [facility] Comment on above: Performed By: #### C BC #### [facility] [address] [place], [place] [address] Clint Sisi WBC 8.6 103/ul Normal 4.0-11.0 [facility] Comment on above: Performed By: #### C BC #### [facility] [address] [place], [place] [address] Clint Mayeren D-DIMERon 01-08-2021 D-DIMER 0.19 mg/L FEU Normal 0.19-0.50 [facility] Comment on above: Performed By: #### D DIM #### [facility] [address] [place], [place] [address] Clint Sisi D-DIMER COMMENTS SEE BELOW Normal [facility] Comment on above: Result Comment: Incr [...] hospitalization. Performed By: #### D DIM #### [facility] [address] [place] [address] Clintcolin Mayeren PROF CHEM 8 (BAS METB)on Anion gap [Moles/Vol] 12.9 mmol/L Normal [facility] Comment on above: Performed By: #### B CARAMEL MAKER, HSTROPN, BMP, TSH #### [facility] [address] [place] [address] Clint Sisi Calcium [Mass/Vol] 8.9 mg/dL Normal 8.4-10.2 [facility] Comment on above: Performed By: #### B CARAMEL MAKER, HSTROPN, BMP, TSH #### [facility] [address] [place] [address] Clint Sisi Chloride [Moles/Vol] 105 mmol/L Normal 98-107 [facility] Comment on above: Performed By: #### B CARAMEL MAKER, HSTROPN, BMP, TSH #### [facility] [address] [place] [address] Clint Sisi CO2 [Moles/Vol] 25.9 mmol/L Normal 22.0-30.0 [facility] Comment on above: Performed By: #### B CARAMEL MAKER, HSTROPN, BMP, TSH #### [facility] [address] [place] [address] Clint Sisi Creatinine [Mass/Vol] 1.04 mg/dL Normal 0.66-1.25 [facility] Comment on above: Performed By: #### B CARAMEL MAKER, HSTROPPernell, BMP, TSH #### [facility] [address] [address] Clint Sisi EGFR-AF AUSTRALIAN >60 Normal >=60 [facility] Comment on above: Performed By: #### B CARAMEL MAKER, HSTROPN, BMP, TSH #### [facility] [address] [address] Clint Sisi EGFR-NON AF AUSTRALIAN >60 Normal >=60 [facility] Comment on above: Performed By: #### B CARAMEL MAKER, HSTROPN, BMP, TSH #### [facility] [address] [place] [address] Clint Sisi Glucose [Mass/Vol] 131 mg/dL Critically high 74-106 [facility] Comment on above: Performed By: #### B CARAMEL MAKER, HSTROPN, BMP, TSH #### [facility] [address] [address] Clint Sisi Potassium [Moles/Vol] 3.8 mmol/L Normal 3.4-5.0 [facility] Comment on above: Performed By: #### B CARAMEL MAKER, HSTROPN, BMP, TSH #### [facility] [address] [place] [address] Clint Sisi Sodium [Moles/Vol] 140 mmol/L Normal 137-145 [facility] Comment on above: Performed By: #### B CARAMEL MAKER, HSTROPN, BMP, TSH #### [facility] [address] [address] Clint Sisi Urea nitrogen [Mass/Vol] 14.0 mg/dL Normal 9.0-20.0 [facility] Comment on above: Performed By: #### B CARAMEL MAKER, HSTROPN, BMP, TSH #### [facility] [address] [address] Clint Sisi Urea nitrogen/Creatinine [Mass ratio] 13.5 mg/mg Normal [facility] Comment on above: Performed By: #### B CARAMEL MAKER, HSTROPN, BMP, TSH #### [facility] [address] [id number] Clint Laird TROPONIN, HIGH SENSITIVITYon 01-08-2021 HSTROP <4.0 Normal 4.0-42.2 [facility] Comment on above: Result Comment: CUT- OFF POINTS HAVE BEEN ESTABLISHED BASED ON THE FOURTH UNIVERSAL DEFINITIONS OF MYOCARDIAL INFARCTION. THE UPPER REFERENCE LIMIT (URL) OF TROPONIN, DEFINED THE 99TH PERCENTILE OF cTnI DISTRIBUTION IN A REFERENCE POPULATION, HAS BEEN CONFIRMED THE DECISION THRESHOLD FOR UT DIAGNOSIS. Performed By: #### P T, DDIM, PTT #### [facility] [address] [address] Clint Laird TSHon 01-08-2021 TSH 1.639 uIU/mL Normal 0.470-4.680 [facility] Comment on above: Performed By: #### B CARAMEL MAKER, HSTROPN, BMP, TSH #### [facility] [address] [address] Clint Laird TSH RANGE SEE BELOW Normal [facility] Comment on above: Result Comment: <0.3 4 UIU/ml HYPERTHYROID 0.34-5.60 UIU/ml EUTHYROID >5.60 UIU/ml HYPOTHYROID Performed By: #### B CARAMEL MAKER, HSTROPN, BMP, TSH #### [facility] [address] [id number] Clint Laird XR CHEST 2 Von 01-08-2021 XR CHEST [...] PIPER HURST Date: 2021-01-08 16:56 Normal [facility] US SCROTUM W VASCULAR ORGANo n 09-30-2020 [...] by: MARVIN RITTER Date: 2020-09-30 21:18 Normal [facility] BNPon 04-15-2020 Natriuretic peptide B (Bld) [Mass/Vol] 22.0 pg/mL Normal <=450.0 [facility] Comment on above: Performed By: #### P T, DDIM, PTT #### [facility] [address] [place] [address] Clint Sisi CBC AUTO DIFFon 04-15-2020 BASO # 0.1 103/ul Normal 0.0-0.1 [facility] Comment on above: Performed By: #### P T, DDIM, PTT #### [facility] [address] [place], [place] [address] Clint Sisi Basophils/100 WBC (Bld) 0.8 % Normal 0.2-2.0 [facility] Comment on above: Performed By: #### P T, DDIM, PTT #### [facility] [address] [place] [address] Clint Sisi EO # 0.3 103/ul Normal 0.0-0.7 [facility] Comment on above: Performed By: #### P T, DDIM, PTT #### [facility] [address] [place], [place] [address] Clint Sisi Eosinophils/100 WBC (Bld) 4.4 % Normal 0.9-7.0 [facility] Comment on above: Performed By: #### P T, DDIM, PTT #### [facility] [address] [place] [address] Clintcolin Laird Erythrocyte distribution width (RBC) [Ratio] 12.9 % Normal 11.0-15.0 [facility] Comment on above: Performed By: #### P T, DDIM, PTT #### [facility] [address] [place] [address] Clintcolin Mayeren Hematocrit (Bld) [Volume fraction] 46.3 % Normal 42.0-54.0 [facility] Comment on above: Performed By: #### P T, DDIM, PTT #### [facility] [address] [place] [address] Clintcolin Laird Hemoglobin (Bld) [Mass/Vol] 15.5 g/dL Normal 14.0-18.0 [facility] Comment on above: Performed By: #### P T, DDIM, PTT #### [facility] [address] [place] [address] Clint Sisi IG # 0.04 10e3/ul Critically high 0.00-0.[address] [facility] Comment on above: Performed By: #### P T, DDIM, PTT #### [facility] [address] [place] [address] Clint Sisi IG % 0.6 % Critically high 0.0-0.5 [facility] Comment on above: Performed By: #### P T, DDIM, PTT #### [facility] [address] [place] [address] Clint Sisi LYMPH # 2.1 103/ul Normal 1.2-3.8 [facility] Comment on above: Performed By: #### P T, DDIM, PTT #### [facility] [address] [place] [address] Clint Sisi Lymphocytes/100 WBC (Bld) 30.0 % Normal 20.5-60.0 [facility] Comment on above: Performed By: #### P T, DDIM, PTT #### [facility] [address] [place], [place] [address] Clint Sisi MANUAL DIFF REQ NO Normal [facility] Comment on above: Performed By: #### P T, DDIM, PTT #### [facility] [address] [place], [place] [address] Clintcolin Laird MCH (RBC) [Entitic mass] 30.5 pg Normal 25.9-34.0 [facility] Comment on above: Performed By: #### P T, DDIM, PTT #### [facility] [address] [place], [place] [address] Clintcolin Laird MCHC (RBC) [Mass/Vol] 33.5 g/dL Normal 29.9-35.2 [facility] Comment on above: Performed By: #### P T, DDIM, PTT #### [facility] [address] [place] [address] Clintcolin Laird MCV (RBC) [Entitic vol] 91.0 fL Normal 80.0-94.0 [facility] Comment on above: Performed By: #### P T, DDIM, PTT #### [facility] [address] [place] [address] Clint Sisi MONO # 0.7 103/ul Normal 0.3-0.8 [facility] Comment on above: Performed By: #### P T, DDIM, PTT #### [facility] [address] [place] [address] Clintcolin Mayeren Monocytes/100 WBC (Bld) 9.3 % Normal 1.7-12.0 [facility] Comment on above: Performed By: #### P T, DDIM, PTT #### [facility] [address] [place] [address] Clint Sisi NEUT # 3.9 103/ul Normal 1.4-6.5 [facility] Comment on above: Performed By: #### P T, DDIM, PTT #### [facility] [address] [place] [address] Clint Sisi Neutrophils/100 WBC (Bld) 54.9 % Normal 43.0-75.0 [facility] Comment on above: Performed By: #### P T, DDIM, PTT #### [facility] [address] [address] Clint Laird Platelet mean volume (Bld) [Entitic vol] 11.8 fL Normal 9.5-13.5 [facility] Comment on above: Performed By: #### P T, DDIM, PTT #### [facility] [address] [id number] Clint Laird PLT 227 103/ul Normal 150-450 [facility] Comment on above: Performed By: #### P T, DDIM, PTT #### [facility] [address] [address] Clint Laird RBC 5.09 106/ul Normal 4.70-6.10 [facility] Comment on above: Performed By: #### P T, DDIM, PTT #### [facility] [address] [address] Clint Laird WBC 7.1 103/ul Normal 4.0-11.0 [facility] Comment on above: Performed By: #### P T, DDIM, PTT #### [facility] [address] [place], [place] [address] Clint Laird D-DIMERon 04-15-2020 D-DIMER COMMENTS SEE BELOW Normal [facility] Comment on above: Result Comment: Incr eases [...] By: #### P T, DDIM, PTT #### [facility] [address] [id number] Clint Laird Fibrin D-dimer FEU IA (Bld) [Mass/Vol] 0.24 ug/mL Normal 0.19-0.50 [facility] Comment on above: Performed By: #### P T, DDIM, PTT #### [facility] [address] [id number] Clint Laird PROF 14(COMP METB)on 020 Albumin [Mass/Vol] 3.8 g/dL Normal 3.5-5.0 [facility] Comment on above: Performed By: #### P T, DDIM, PTT #### [facility] [address] [place], [place] [address] Clint Sisi Albumin/Globulin [Mass ratio] 1.1 {ratio} Normal [facility] Comment on above: Performed By: #### P T, DDIM, PTT #### [facility] [address] [place] [address] Clint Sisi ALP [Catalytic activity/Vol] 68 U/L Normal 38-126 [facility] Comment on above: Performed By: #### P T, DDIM, PTT #### [facility] [address] [place] [address] Clint Sisi ALT [Catalytic activity/Vol] 39 U/L Normal 21-72 [facility] Comment on above: Performed By: #### P T, DDIM, PTT #### [facility] [address] [place], [place] [address] Clint Sisi Anion gap [Moles/Vol] 10.4 mmol/L Normal [facility] Comment on above: Performed By: #### P T, DDIM, PTT #### [facility] [address] [place] [address] Clint Sisi AST [Catalytic activity/Vol] 22 U/L Normal 17-59 [facility] Comment on above: Performed By: #### P T, DDIM, PTT #### [facility] [address] [place] [address] Clint Sisi Bilirubin [Mass/Vol] 0.5 mg/dL Normal 0.2-1.3 [facility] Comment on above: Performed By: #### P T, DDIM, PTT #### [facility] [address] [place], [place] [address] Clint Sisi Calcium [Mass/Vol] 9.0 mg/dL Normal 8.4-10.2 [facility] Comment on above: Performed By: #### P T, DDIM, PTT #### [facility] [address] [place] [address] Clint Sisi Chloride [Moles/Vol] 104 mmol/L Normal 98-107 [facility] Comment on above: Performed By: #### P T, DDIM, PTT #### [facility] [facility] [address] [place] [address] Clint Sisi CO2 [Moles/Vol] 30.0 mmol/L Normal 22.0-30.0 [facility] Comment on above: Performed By: #### P T, DDIM, PTT #### [facility] [address] [place] [address] Clint Sisi Creatinine [Mass/Vol] 1.07 mg/dL Normal 0.66-1.25 [facility] Comment on above: Performed By: #### P T, DDIM, PTT #### [facility] [address] [place] [address] Clint Sisi EGFR-AF AUSTRALIAN >60 Normal >=60 [facility] Comment on above: Performed By: #### P T, DDIM, PTT #### [facility] [address] [place] [address] Clint Sisi EGFR-NON AF AUSTRALIAN >60 Normal >=60 [facility] Comment on above: Performed By: #### P T, DDIM, PTT #### [facility] [address] [place] [address] Clint Sisi Globulin (S) [Mass/Vol] 3.6 g/dL Normal T [facility] Comment on above: Performed By: #### P T, DDIM, PTT #### [facility] [address] [place] [address] Clint Sisi Glucose [Mass/Vol] 104 mg/dL Normal 74-106 [facility] Comment on above: Performed By: #### P T, DDIM, PTT #### [facility] [address] [place] [address] Clint Sisi Potassium [Moles/Vol] 4.4 mmol/L Normal 3.4-5.0 [facility] Comment on above: Performed By: #### P T, DDIM, PTT #### [facility] [address] [place] [address] Clint Sisi Protein [Mass/Vol] 7.4 g/dL Normal 6.1-8.2 [facility] Comment on above: Performed By: #### P T, DDIM, PTT #### [facility] [address] [place] [address] Clint Sisi Sodium [Moles/Vol] 140 mmol/L Normal 137-145 [facility] Comment on above: Performed By: #### P T, DDIM, PTT #### [facility] [address] [place] [address] Clint Sisi Urea nitrogen [Mass/Vol] 14.0 mg/dL Normal 9.0-20.0 [facility] Comment on above: Performed By: #### P T, DDIM, PTT #### [facility] [address] [place] [address] Clintcolin Laird Urea nitrogen/Creatinine [Mass ratio] 13.0 mg/mg Normal [facility] Comment on above: Performed By: #### P T, DDIM, PTT #### [facility] [address] [place] [address] Clint Laird PROTIMEon 04-15-2020 INR Coag (PPP) [Relative time] 0.95 {INR} Normal [facility] Comment on above: Performed By: #### P T, DDIM, PTT #### [facility] [address] [place] [address] Clint Sisi INR GUIDELINES SEE BELOW Normal [facility] Comment on above: Result Comment: LOPEZ RED INR: 2.0 - 3.0 CONDITIONS NOT LISTED BELOW 2.5 - 3.5 FOR PROSTHETIC HEART VALVE REPLACEMENT 2.5 - 3.5 RECURRENT THROMBOSIS Performed By: #### P T, DDIM, PTT #### [facility] [address] [place] [address] Clint Laird PT Coag (PPP) [Time] 10.1 s Normal 9.0-11.6 [facility] Comment on above: Performed By: #### P T, DDIM, PTT #### [facility] [address] [place], [place] [id number] Clint Laird PT NORMAL PLEASE NOTE: NORMAL RANGE CHANGE 03-09-2014 DUE TO REAGENT LOT CHANGE [facility] Comment on above: Performed By: #### P T, DDIM, PTT #### [facility] [address] [id number] Clint Laird PTTon 04-15-2020 aPTT Coag (Bld) [Time] 32.2 s Normal 22.3-36.2 [facility] Comment on above: Performed By: #### P T, DDIM, PTT #### [facility] [address] [place] [address] Clintcolin Laird PTT NORMAL PLEASE NOTE: NORMAL RANGE CHANGE 05-16-2015 DUE TO REAGENT LOT CHANGE [facility] Comment on above: Performed By: #### P T, DDIM, PTT #### [facility] [address] [place], [place] [id number] Clint Laird TROPONIN - Ion 04-15-2020 TROP <0.012 Normal <=0.034 [facility] Comment on above: Performed By: #### P T, DDIM, PTT #### [facility] [address] [place], [place] [id number] Clint Laird TROPONIN RANGE SEE BELOW Normal [facility] Comment on above: Result Comment: <0.0 34 ng/ml NEGATIVE 0.034-0.119 INDETERMINATE 0.120 AMI CUT OFF Performed By: #### P T, DDIM, PTT #### [facility] [address] [place], [place] [id number] Clintcolin Laird TSHon 04-15-2020 TSH 1.185 uIU/mL Normal 0.470-4.680 [facility] Comment on above: Performed By: #### P T, DDIM, PTT #### [facility] [address] [place], [place] [id number] Clintcolin Laird TSH RANGE SEE BELOW Normal [facility] Comment on above: Result Comment: <0.3 4 UIU/ml HYPERTHYROID 0.34-5.60 UIU/ml EUTHYROID >5.60 UIU/ml HYPOTHYROID Performed By: #### P T, DDIM, PTT #### [facility] [address] [id number] Clint Laird XR CHEST 2 Von 04-15-2020 XR CHEST 2 V EXAMINATION: XR CHEST 2 V HISTORY: SHORTNESS OF BREATH COMPARISON: [facility] XR from 05/25/2014 TECHNIQUE: 2 projections FINDINGS: LUNGS: No significant pulmonary parenchymal abnormalities. VASCULATURE: No increased pulmonary vasculature. PLEURA: No pneumothorax, effusion, or pleural thickening. CARDIAC: No cardiomegaly or cardiac silhouette abnormality. MEDIASTINUM: No visible mass or adenopathy. BONES: No fracture or visible bone lesion. OTHER: Negative. IMPRESSION: No acute cardiopulmonary findings Electronically authenticated by: AMY LARSON Date: 2020-04-15 09:24 Normal [facility] Vital Signs Date Time Vital Sign Value Performing Clinician Facility 05-31-2024 10:19-0500 Diastolic blood pressure 82 mm[Hg] [address] 05-31-2024 10:19-0500 Heart rate 73 /min [address] 05-31-2024 10:19-0500 Systolic blood pressure 120 mm[Hg] [address] 05-12-2024 09:16-0500 Body mass index (BMI) [Ratio] 30.9 kg/m2 [employer] DO [facility] 05-12-2024 09:16-0500 Body temperature 97.2 [degF] LawsonCeltro DO Work Phone: [email or web address] [facility] 05-12-2024 09:16-0500 Body weight 103.33 kg LawsonCeltro DO Work Phone: [facility] 05-12-2024 09:16-0500 Diastolic blood pressure 84 mm[Hg] [employer] DO [facility] 05-12-2024 09:16-0500 Heart rate 72 /min Lawson Hodge DO Work Phone: [facility] [employer] [facility] 05-12-2024 09:16-0500 SaO2% (BldA) [Mass fraction] 98 % Lawson Hodge DO Work Phone: [facility] 05-12-2024 09:16-0500 Systolic blood pressure 126 mm[Hg] Lawson Hodge DO Work Phone: [facility] 04-28-2024 15:00-0500 Body height 182.9 cm Candelaria Doshi MD Work Phone: [facility] 04-28-2024 15:00-0500 Body mass index (BMI) [Ratio] 30.65 kg/m2 Candelaria Doshi MD Work Phone: [facility] 04-28-2024 15:00-0500 Body weight 102.51 kg Candelaria Doshi MD Work Phone: [facility] 04-28-2024 15:00-0500 Diastolic blood pressure 88 mm[Hg] Candealria Doshi MD Work Phone: [facility] 04-28-2024 15:00-0500 Heart rate 73 /min Candelaria Doshi MD Work Phone: [facility] 04-28-2024 15:00-0500 Systolic blood pressure 144 mm[Hg] Candelaria Doshi MD Work Phone: [facility] 04-22-2023 16:23-0400 Body height 182.9 cm Candelaria Doshi MD Work Phone: [facility] 04-22-2023 16:23-0400 Body mass index (BMI) [Ratio] 30.38 kg/m2 Candelaria Doshi MD Work Phone: [facility] 04-22-2023 16:23-0400 Body weight 101.61 kg Candelaria Doshi MD Work Phone: [facility] 04-22-2023 16:23-0400 Diastolic blood pressure 74 mm[Hg] Candelaria Doshi MD Work Phone: [facility] 04-22-2023 16:23-0400 Heart rate 82 /min Candelaria Doshi MD Work Phone: [facility] 04-22-2023 16:23-0400 Systolic blood pressure 126 mm[Hg] Candelaria Doshi MD Work Phone: [facility] 07-28-2022 13:10-0500 Body height 182.88 cm Lawson G Furlong Work Phone: [facility] [address] DO Work Phone: 07-28-2022 13:10-0500 Body mass index (BMI) [Ratio] 30.92 kg/m2 Lawson G Furlong Work Phone: [facility] [address] DO Work Phone: 07-28-2022 13:10-0500 Body surface area Derived from formula 2.25 m2 Lawson G Furlong Work Phone: [facility] [address] DO Work Phone: 07-28-2022 13:10-0500 Body weight 103.42 kg Lawson G Furlong Work Phone: [facility] [address] DO Work Phone: 07-28-2022 13:10-0500 Diastolic blood pressure 84 mm[Hg] Lawson G Furlong Work Phone: [facility] [address] DO Work Phone: 07-28-2022 13:10-0500 Heart rate 82 /min Lawson G Furlong Work Phone: [facility] [employer]-[place] [address] DO Work Phone: 07-28-2022 13:10-0500 Systolic blood pressure 128 mm[Hg] Lawson G Furlong Work Phone: [facility] [employer]-[place] [address] DO Work Phone: 07-11-2021 16:00-0500 Body height 182.88 cm Lawson G Furlong Work Phone: [facility] [employer] [address] DO Work Phone: 07-11-2021 16:00-0500 Body mass index (BMI) [Ratio] 30.24 kg/m2 Lawson G Furlong Work Phone: [facility] [employer] [address] DO Work Phone: 07-11-2021 16:00-0500 Body surface area Derived from formula 2.23 m2 Lawson G Furlong Work Phone: [facility] [employer]-[place] [address] DO Work Phone: 07-11-2021 16:00-0500 Body weight 101.15 kg Lawson G Furlong Work Phone: [facility] [employer]-[place] [address] DO Work Phone: 07-11-2021 16:00-0500 Diastolic blood pressure 68 mm[Hg] Lawson G Furlong Work Phone: [facility] [employer]-[place] [address] DO Work Phone: 07-11-2021 16:00-0500 Heart rate 84 /min Lawson G Furlong Work Phone: [facility] [employer]-[place] [address] DO Work Phone: 07-11-2021 16:00-0500 Systolic blood pressure 118 mm[Hg] Lawson G Furlong Work Phone: [facility] [employer] [address] DO Work Phone: Encounters Encounter Date Encounter Type Care Provider Facility Start: 06-20-2024 End: 06-20-2024 Refill Lawson Hodge DO Work Phone: [facility] Start: 05-31-2024 End: 05-31-2024 Subsequent hospital visit by physician Isela Ashton Stress Room 1 [facility] Comment on above: Chest pain, unspecif ied type Start: 05-31-2024 End: 05-31-2024 ambulatory [facility] Start: 05-12-2024 End: 05-12-2024 ambulatory [facility] Start: 05-12-2024 Encounter for genera l adult medical examination without abnormal findings [facility] Start: 05-12-2024 End: 05-12-2024 Patient encounter status Lawson Hodge DO Work Phone: [facility] [employer] Work Phone: Start: 05-12-2024 End: 05-12-2024 Periodic preventive med est patient 40-64yrs Lawson Hodge DO Work Phone: [facility] Comment on above: Well adult exam ([facility] sd Dx); Psoriasis; Tobacco abuse; Gastroesophageal reflux disease, unspecified whether esophagitis present; Class 1 obesity due to excess calories with serious comorbidity and body mass index (BMI) of 30.0 to 30.9 in adult; Depression with anxiety; PAC (premature atrial contraction); Ventricular ectopic beats Start: 05-12-2024 End: 05-12-2024 ambulatory [facility] Start: 05-12-2024 Encounter for genera l adult medical examination without abnormal findings [facility] Start: 04-28-2024 End: 04-28-2024 Office outpatient visit 25 minutes Candelaria Doshi MD [facility] Phone[facility] Comment on above: Chest pain, unspecif ied type (Primary Dx); Palpitations; Ventricular ectopic beats; PAC (premature atrial contraction); Shortness of breath; BMI 38.0-38.9,adult; Current smoker Start: 04-28-2024 End: 04-28-2024 ambulatory [facility] Start: 03-28-2024 End: 03-28-2024 ambulatory SRINIVAS MONCADA Not Available Start: 03-23-2024 End: 03-23-2024 Patient encounter procedure MD Hipolito Ruiz Work Phone: [facility] [address] Work Phone: Start: 03-23-2024 End: 03-23-2024 ambulatory MD Hipolito Ruiz Work Phone: [facility] Work Phone: Start: 03-22-2024 End: 03-22-2024 Refill Lawson Hodge DO Work Phone: [facility] Start: 02-10-2024 End: 02-10-2024 ambulatory LAWSON JACOBSENSANTIAGO [facility] Start: 10-19-2023 End: 10-19-2023 ambulatory [facility] Start: 10-01-2023 End: 10-01-2023 ambulatory [facility] Start: 04-22-2023 End: 04-22-2023 Office outpatient visit 15 minutes Candelaria Doshi MD Work Phone: [facility] Comment on above: Shortness of breath (Primary Dx); Palpitations; Ventricular ectopic beats; PAC (premature atrial contraction); BMI 38.0-38.9,adult Start: 10-28-2022 Rx Renewal Lawson henderson Work Phone: [facility] [employer] [address] DO Work Phone: Start: 07-28-2022 Office outpatient vi sit 25 minutes Lawson Hodge Work Phone: [facility] 250 DO Work Phone: Start: 07-28-2022 ambulatory Lawson Lopez acility: Start: 10-21-2021 Rx Renewal Lawson henderson Work Phone: [facility] [address] DO Work Phone: Start: 07-11-2021 Office outpatient vi sit 15 minutes Lawson Hodge Work Phone: [facility] 250 DO Work Phone: Start: 01-08-2021 End: 01-08-[address] ANNITA JOHNSON Facility:[facility] Start: 09-30-2020 End: 09-30-[address] TO BAÑUELOS Facility:[facility] Start: 04-15-2020 End: 04-15-[address] ANNITA JOHNSON Facility:[facility] Procedures Date Procedure Procedure Detail Performing Clinician Start: 05-31-2024 Cv strs tst xers&/or rx cont ecg trcg only Candelaria Doshi MD Work Phone: Start: 05-12-2024 Adult depression scr eening assessment Lawson Hodge DO Work Phone: Start: 04-28-2024 Ecg routine ecg w/le ast 12 lds w/i&r Candelaria Doshi MD Work Phone: Start: 02-10-2024 Adult depression scr eening assessment Lawson Hodge DO Work Phone: Start: 06-13-2020 Echocardiography Operation on gallbladder Kanu Hodge Work Phone: Total colonoscopy Lawson haaslosantiago Work Phone: Plan of Treatment Date Care Activity Detail Author Start: 2028 Zoster Vaccines (1 of 2) Zoste r Vaccines (1 of 2) [facility] Start: 05-15-2025 End: 05-15-2025 Patient encounter procedure 05/15/2025 9:30 AM EST Office Visit [facility] [address] [place] [address] Lawson Hodge, DO [address] [place] [address] [facility] Start: 05-12-2025 Adult BMI Screening Adult BMI Screen ing [facility] Start: 05-12-2025 Depression Screening Depression Scre ening [facility] Start: 05-12-2025 Tobacco Screening Tobacco Screening [facility] Start: 02-09-2025 Adult BMI Screening Adult BMI Screen ing [facility] Start: 02-09-2025 Depression Screening Depression Scre ening [facility] Start: 02-09-2025 Tobacco Screening Tobacco Screening [facility] Start: 10-18-2024 Adult BMI Follow Up Plan Adult BMI Follow Up Plan [facility] Start: 08-04-2024 End: 08-04-2024 Patient encounter procedure 08/04/2024 2:10 PM EST Office Visit [address] [place] [address] Candelaria Doshi MD [address] [facility] [address] [place] [address] [facility] Start: 07-12-2024 Screening for malign ant neoplasm of colon [facility] Comment on above: Postponed from 11/18 (Patient Refused) Start: 05-12-2024 End: 05-12-2024 Patient encounter procedure 05/12/2024 9:30 AM EST Office Visit [facility] [address] [place] [address] Lawson Hodge, DO [address], [place] [address] [facility] Start: 05-09-2024 End: 05-09-2024 Patient encounter procedure 05/09/2024 2:30 PM EST [facility]ment [facility] [address] [place] [address] [facility] Start: 04-28-2024 End: 04-28-2024 Patient encounter procedure 04/28/2024 3:00 PM EST [facility] [address] [place] [address] Candelaria Doshi MD [address] [place] [address] [facility] Start: 04-28-2024 End: 04-28-2025 Cardiac stress study Procedure Stress Test Cardiac Services Routine Chest pain, unspecified type Expected: 04/28/2024, Expires: 04/28/[address] [facility] Service Area Work Phone: Comment on above: Expected: 04/28/2024 , Expires: 04/28/2025 Start: 03-23-2024 Hepatitis B core antibody measurement [facility] Start: 03-23-2024 [facility] Start: 02-21-2024 COVID-19 Vaccine ( season) COVID-19 Vaccine ( season) [facility] Start: 02-21-2024 Influenza vaccination [facility] Start: 12-15-2023 DTaP,Tdap and Td Vaccines (3 - Td or Tdap) DTaP,Tdap and Td Vaccines (3 - Td or Tdap) [facility] Start: 12-15-2023 DTaP/Tdap/Td Vaccine s (3 - Td or Tdap) DTaP/Tdap/Td Vaccines (3 - Td or Tdap) [facility] Start: 11-19-2023 Screening for malign ant neoplasm of colon Colon Cancer Screening 3 Year Cologuard [facility] Start: 04-22-2023 FUV, Provider: Candelaria Doshi, Status: Pen, Time: 3:40 PM FUV, Provider: Candelaria Doshi, Status: Pen, Time: 3:40 PM [facility] Work Phone: Start: 02-20-2023 Influenza vaccination Influenza Vacc ine (#1) [facility] Start: 07-10-2022 FUV, Provider: Candelaria Doshi, Status: Pen, Time: 3:50 PM FUV, Provider: Candelaria Doshi, Status: Pen, Time: 3:50 PM [facility] 250 DO Work Phone: Start: 1997 Hepatitis B Vaccines (1 of 3 - 19+ 3-dose series) Hepatitis B Vaccines (1 of 3 - 19+ 3-dose series) [facility] Start: 1996 Diabetes mellitus screening Diabetes Screening [facility] Start: 1996 Hepatitis C screening Hepatitis C Sc [facility] Start: 1984 Pneumococcal Vaccine : Pediatrics (0 to 5 Years) and At-Risk Patients (6 to 64 Years) (1 - PCV) Pneumococcal Vaccine: Pediatrics (0 to 5 Years) and At-Risk Patients (6 to 64 Years) (1 - PCV) [facility] Start: 1984 Pneumococcal Vaccine : Pediatrics (0 to 5 Years) and At-Risk Patients (6 to 64 Years) (1 of 2 - PCV) Pneumococcal Vaccine: Pediatrics (0 to 5 Years) and At-Risk Patients (6 to 64 Years) (1 of 2 - PCV) [facility] Start: 11-19-1979 MMR Vaccines (1 of 1 - Standard series) MMR Vaccines (1 of 1 - Standard series) [facility] Start: 05-21-1979 COVID-19 Vaccine (#1) COVID-19 Vacci ne (#1) [facility] Start: 1978 Hepatitis B Vaccines (1 of 3 - 3-dose series) Hepatitis B Vaccines (1 of 3 - 3-dose series) [facility] Start: 1978 HIV screening HIV Screening [facility] Start: 1978 Lipid panel Lipid Panel [facility] Start: 1978 Screening for malign ant neoplasm of colon [facility] Start: 1978 Tobacco Counseling Tobacco Counselin g [employer] Start: 1978 Yearly Adult Physical Yearly Adult P [facility] End: 05-12-2025 Comprehensive metabolic 2000 panel - Serum or Plasma Comprehensive metabolic panel Lab Routine Well adult exam 1 Occurrences starting 05/12/2024 until 05/12/2025 [employer] Comment on above: 1 Occurrences starti ng 05/12/2024 until 05/12/2025 Hepatitis B virus surface Ab [Presence] in Serum [facility] Hepatitis B virus surface Ag [Presence] in Serum or Plasma by Immunoassay [facility] Hepatitis C virus Ig G Ab [Presence] in Serum or Plasma by Immunoassay [facility] Interferon gamma assay [facility] End: 05-12-2025 Lipid panel Lipid panel Lab Routine Well adult exam 1 Occurrences starting 05/12/2024 until 05/12/2025 [employer] Work Phone: Comment on above: 1 Occurrences starti ng 05/12/2024 until 05/12/2025 Mycobacterium tuberculosis stimulated gamma interferon [Interpretation] in Blood Qualitative [facility] Mycobacterium tuberculosis stimulated gamma interferon release by CD4+ and CD8+ T-cells [Units/volume] corrected for background in Blood [facility] Mycobacterium tuberculosis tuberculin stimulated gamma interferon [Presence] in Blood [facility] Immunizations Immunization Date Immunization Notes Care Provider Tommy bojorquez 12-14-2013 tetanus toxoid, redu tim diphtheria toxoid, and acellular pertussis vaccine, adsorbed Lawson G [employer] Work Phone: [facility] [employer] DO Work Phone: 11-20-2013 tetanus toxoid, redu tim diphtheria toxoid, and acellular pertussis vaccine, adsorbed Lawson G [employer] Work Phone: [facility] [employer] DO Work Phone: Payers Date Payer Category Payer Self-pay 2022 [employer] Declan bennett [facility] Care [facility] Member Subscriber Plan / Payer (Effective 2022-Present) Name: Harshad Sarabia Relation to Subscriber: Self Name: Harshad Sarabia Payer ID: [id number] (NAIC) Type: Not on file Address: [facility] [address] [place] [id number] 2022 [employer] Blue Shijimmie ld Managed Care - Other ANTHEM [id number] 2022 Unknown 2022 Unknown [id number] 2012 Unknown [id number] 1978 Unknown [id number] [id number]. 2.593 1978 Unknown [id number]. 2.593 1978 Unknown [id number] 2.840.1.879844.3.579. 2.593 1978 Unknown [id number] 2.0.1.505466.3.579. 2.356 1978 Unknown [id number] 2.840.1.239606.3.579. 2.1286 1978 Unknown [id number] 2.16840.1.103243.3.579. 2.1259 1978 Unknown [id number] 2.16.840.1.390189.3.579. 2.1244 1978 Unknown [id number] 2.16.840.1.406523.3.579. 2.6 1978 Unknown [id number] 2.16.840.1.194687.3.579. 2.1285 1978 Unknown [id number] 2.16.840.1.952251.3.579. 2.1285 1978 Unknown [id number] 2.16.840.1.524404.3.579. 2.1285 1978 Unknown [id number] 2.16.840.1.976828.3.579. 2.1246 1959 Unknown [id number] Unknown [id number] [id number]. 2.531 Social History Date Type Detail Facility Start: 10-19-2023 End: 05-12-2024 Current every day smoker Current every day smoker [employer] Comment on above: 1 ppd; 3 cups coffee daily; Start: 01-09-1997 End: 05-12-2024 Tobacco smoking status NHIS Smokes tobacco daily [facility] Work Phone: Start: 01-09-1997 History of tobacco use Cigarette Smo ker [facility] Work Phone: Start: 04-22-2023 End: 05-12-2024 Tobacco use and exposure Smokeless tobacco non-user [facility] Work Phone: Start: 04-22-2023 Alcohol intake Ex-drinker (finding) [facility] Work Phone: Start: 1980 Sex Assigned At Not on file [facility] Work Phone: Start: 02-10-2024 End: 05-12-2024 Gender identity Not on file [facility] Start: 04-12-2023 End: 05-31-2024 Exposure to SARS-CoV-2 (event) Not sure [facility] Start: 02-10-2024 End: 05-12-2024 Alcoholic beverage intake Current drinker of alcohol (finding) [facility] Adolescent depressio n screening assessment 0 [facility] Start: 02-10-[address] [facility] [place] Start: 02-20-2021 Tobacco smoking stat us NHIS Smoker (finding) [facility] Start: 1980 Sex Assigned At Male F [facility] Start: 04-28-2024 Alcohol Comment social [facility] Work Phone: Has the [employer], or water company threatened to shut off services in your home in past 12Mo No [facility] Do you belong to any clubs or organizations such as holiness groups, unions, fraternal or athletic groups, or school groups? Yes [facility] Are you now , , , , never or living with a partner? [facility] How often to you hav e a drink containing alcohol? 2-3 time sa week [facility] How many standard dr inks containing alcohol do you have on a typical day? 1 or 2 [facility] How often do you hav e 6 or more drinks on 1 occasion? Never [facility] Do you feel stress - tense, restless, nervous, or anxious, or unable to sleep at night because your mind is troubled all the time - these days [OSQ] Only a little [facility] Start: 01-25-2015 Sex Male (finding) [facility] Clinical Notes 04-22-2023 to 05-12-2024 Lawson Hodge DO - 05/12/2024 9:30 AM Ayanna Doshi MD - 04/28/2024 3:00 PM ESTPatient Alexandre Doshi MD - 04/22/2023 3:40 PM EDTPatient Instructions Note Date & Type Note Facility 05-12-2024 History of Present illness Narrative Subjective Patient ID: Harshad Sarabia II is a 43 y.o. male. Colin presents today for his annual wellness. He has been seeing the deputy city clerk for his plaque psoriasis. They put him on methotrexate and it is helping. He tried the Otezla but it made him nauseated. He did have some labs done at [facility] but is okay with checking wellness labs here. He has no new concerns. He saw the senior manager mergers & acquisitions for palpitations and remote history of chest pain. He was supposed to have a stress test but he had to cancel it. He needs to reschedule that. He has not had any problems since he restarted omeprazole. He thinks it is coming from his stomach and not as hard but knows he should get his heart checked. Annual Exam Associated symptoms include abdominal pain (Better with omeprazole) and a rash. The following portions of the patient's history were reviewed and updated as appropriate: allergies, current medications, past family history, past medical history, past social history, past surgical history, problem list, and medication reconciliation was completed including current medication and post discharge medication. Review of Systems Constitutional: Negative. HENT: Negative. Eyes: Negative. Respiratory: Negative. Cardiovascular: Positive for palpitations. Gastrointestinal: Positive for abdominal pain (Better with omeprazole). Genitourinary: Negative. Musculoskeletal: Negative. Skin: Positive for rash. Neurological: Negative. Psychiatric/Behavioral: Negative. Objective Physical Exam Vitals reviewed. Constitutional: General: He is not in acute distress. Appearance: He is obese. He is not ill-appearing. HENT: Head: Normocephalic. Right Ear: Tympanic membrane, ear canal and external ear normal. Left Ear: Tympanic membrane, ear canal and external ear normal. Nose: Nose normal. Mouth/Throat: Lips: [place]. Mouth: Mucous membranes are moist. Dentition: Has dentures (upper). Eyes: General: No scleral icterus. Extraocular Movements: Extraocular movements intact. Conjunctiva/sclera: Conjunctivae normal. Cardiovascular: Rate and Rhythm: Normal rate and regular rhythm. Pulses: Normal pulses. Heart sounds: Normal heart sounds. No murmur heard. Pulmonary: Effort: Pulmonary effort is normal. No respiratory distress. Breath sounds: Normal breath sounds. No wheezing, rhonchi or rales. Abdominal: General: Bowel sounds are normal. There is no distension. Palpations: Abdomen is soft. There is no mass. Tenderness: There is no abdominal tenderness. Hernia: No hernia is present. Musculoskeletal: General: Normal range of motion. Cervical back: Neck supple. Right lower leg: No edema. Left lower leg: No edema. Lymphadenopathy: Cervical: No cervical adenopathy. Skin: Findings: Lesion (Plaque psoriasis on elbows checked) present. Neurological: General: No focal deficit present. Mental Status: He is alert and oriented to person, place, and time. Psychiatric: Mood and Affect: Mood normal. Behavior: Behavior normal. Thought Content: Thought content normal. Judgment: Judgment normal. Assessment/Plan Harshad was seen today for annual exam. Diagnoses and all orders for this visit: Well adult exam - Lipid panel; Future - Comprehensive metabolic panel; Future Health maintenance discussed. Check CMP and lipids. Psoriasis Follow up with deputy city clerk. Tobacco abuse We discussed smoking. Risks were discussed. Tips to quit smoking were discussed. He declines medications. He feels he can do it on his own. He had quit a couple times in the past for an extended period of time. Gastroesophageal reflux disease, unspecified whether esophagitis present Stay on omeprazole for now. Class 1 obesity due to excess calories with serious comorbidity and body mass index (BMI) of 30.0 to 30.9 in adult He is obese. He would benefit from weight loss. Diet exercise and weight loss discussed. Depression with anxiety Follow up with Psychiatry PAC (premature atrial contraction) Follow up with Cardiology. Continue carvedilol Ventricular ectopic beats Follow up with Cardiology. 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 BMI 38.0-38.9,adult documented in this encounter [facility] Work Phone: 04-22-2023 Instructions Adelfo Yang MA [...] of your visit. documented in this encounter [facility] Work Phone: Evaluation note Diagnosis Shortness of breath- Primary Palpitations Ventricular ectopic beats Other premature beats PAC (premature atrial contraction) Supraventricular premature beats BMI 38.0-38.9,adult documented in this encounter [facility] Work Phone: Evaluation noteNo assessment information available [facility] Work Phone: Evaluation note* Diagnosis Chest pain, unspecified type- Primary Palpitations Ventricular ectopic beats Other premature beats PAC (premature atrial contraction) Supraventricular premature beats Shortness of breath BMI 38.0-38.9,adult Current smoker documented in this encounter [facility] Work Phone: Evaluation note* Diagnosis Well adult exam- Primary Routine general medical examination at a health care facility Psoriasis Other psoriasis Tobacco abuse Tobacco use disorder Gastroesophageal reflux disease, unspecified whether esophagitis present Class 1 obesity due to excess calories with serious comorbidity and body mass index (BMI) of 30.0 to 30.9 in adult Depression with anxiety Dysthymic disorder PAC (premature atrial contraction) Supraventricular premature beats Ventricular ectopic beats Other premature beats [facility] Chest pain, unspecified type documented in this encounter [facility] Work Phone: History of Present illness Narrative* [...] me change in cardiac status or symptoms [facility] [address] DO Work Phone: History of Present [...] me change in cardiac status or symptoms [facility] [address] DO Work Phone: InstructionsNot on filedocumented in this encounter [facility]ructions[facility] on filedocumented in this encounter [facility]ructionsNot on filedocumented in this encounter [facility] SystemReason for referral (narrative)* Consultation (Routine) - Authorized Specialty Diagnoses / Procedures Referred By Rahul t Referred To Contact Cardiology Diagnoses Palpitations Ventricular ectopic beats Procedures Follow Up In Cardiology Candelaria Doshi MD [address] [facility] [address], [address] [place] [address] Candelaria Doshi MD [address] [facility], [address] [address] Referral ID Status Reason Start Date Expiration Date V isits Requested Visits Authorized [id number] Authorized 04/22/2023 04/21/2024 1 1 [facility] Work Phone: Reason for visit Narrative* Cardiac Stress Testing (Routine) - Authorized Specialty Diagnoses / Procedures Referred By Contac t Referred To Contact Cardiology Diagnoses Chest pain, unspecified type Procedures Stress Test W[place] CV STRS TST XERS&/OR RX CONT ECG TRCG ONLY Candelaria Doshi MD [facility], [address] [address] Phone: tel: fax: Referral ID Status Reason Start Date Expiration Date V isits Requested Visits Authorized [id number] Authorized 04/28/2024 04/28/2025 1 1 [facility] Work Phone: Summary Purpose Family History Unknown Family Member Name Dates Details Family [...] myocardial infarction: Father(V17.3, Z82.49) Status:Active Advance Directives Advance Directive Response Recorded Date/ Time Advance Directives No March 23, 2024 1:29pm Chief Complaint HARSHAD SARABIA is being seen for an annual follow-up of.HARSHAD SARABIA is being seen for an annual [...] section and content) DATE CREATED AUTHOR 06/15/2020 [facility] DATE CREATED AUTHOR AUTHOR'S ORGANIZ ATION 01/11/2021 [facility] DATE CREATED AUTHOR AUTHOR'S ORGANIZ ATION 08/25/2021 [facility] DATE CREATED AUTHOR AUTHOR'S ORGANIZ ATION 07/29/2022 [facility] DATE CREATED AUTHOR AUTHOR'S ORGANIZ ATION 07/29/2022 [employer] DATE CREATED AUTHOR AUTHOR'S ORGANIZ ATION 10/02/2023 [facility] DATE CREATED AUTHOR AUTHOR'S ORGANIZ ATION 04/03/2024 [facility] DATE CREATED AUTHOR AUTHOR'S ORGANIZ ATION 04/04/2024 [facility] DATE CREATED AUTHOR AUTHOR'S ORGANIZ ATION 04/30/2024 [facility] DATE CREATED AUTHOR AUTHOR'S ORGANIZ ATION 05/15/2024 [facility] DATE CREATED AUTHOR AUTHOR'S ORGANIZ ATION 05/16/2024 [facility] DATE CREATED AUTHOR AUTHOR'S ORGANIZ ATION 06/03/2024 [facility] Reason for Visit (unrecogniz ed section and content) Reason Comments Follow-up 9 month Reason Comments Med Refill Reason Comments Annual Exam Specialty Diagnoses / Procedures Referred By Contac t Referred To Contact Cardiology Diagnoses Palpitations Ventricular ectopic beats Procedures Follow Up In Cardiology Candelaria Doshi MD [address] [address], [address] [address] Phone: tel: fax: Candelaria Doshi MD [address] [facility] [address], [address] [place] [address] Phone: tel: fax: Referral ID Status Reason Start Date Expiration Date V isits Requested Visits Authorized [id number] Authorized 04/22/2023 04/21/2024 1 1 Reason Comments Annual Exam Care Teams (unrecognized sec tion and content) Glass Ribbon Machine Operator Assistant Relationship Specialty Start Date End Date Lawson Hodge DO [address] [place] [address] PCP - General 06/13/20 Glass Ribbon Machine Operator Assistant Relationship Specialty Start Date End Date Lawson Hodge DO [address], [place] [address] PCP - General Family Medicine 04/04/22 Team Status: Active Member Role Status Dates Hipolito Ruiz MD Primary Care Provider Active Team Status: Inactive Member Role Status Dates Hipolito Ruiz MD Primary Care Provider Active Sta rt: March 23, 2024 End: March 23, 2024 Srinivas Moncada MD Attending Provider Active St art: March 23, 2024 End: March 23, 2024 Glass Ribbon Machine Operator Assistant Relationship Specialty Start Date End Date CarleyLawson wu KrishnaDO PCP - General 06/13/20 Glass Ribbon Machine Operator Assistant Relationship Specialty Start Date End Date Lawson Hodge DO [address], [place] [address] PCP - General Family Medicine 04/04/22 Glass Ribbon Machine Operator Assistant Relationship Specialty Start Date End Date Lawson Hodge DO PCP - General 06/13/20 Glass Ribbon Machine Operator Assistant Relationship Specialty Start Date End Date Lawson Hodge DO [address] [facility], [place] [address] PCP - General Family Medicine 04/04/22 Goals (unrecognized section and content) Goals may [...] BE BASED ON THE PRIMARY CLINICAL RECORDS. [employer] provides no warranty or guarantee of the accuracy or completeness of information in this document.
[2024-07-23 11:35] LABS: Basophils Absolute Auto 0.1 10^3/uL (0.0-0.1); Basophils Percent Auto 0.9 % (0.2-2.0); Eosinophils Absolute Auto 0.3 10^3/uL (0.0-0.7); Hematocrit 43.7 % (42.0-54.0); Hemoglobin 14.8 g/dL (14.0-18.0); Immature Granulocytes Abs Auto 0.04 10^3/uL (0.00-0.03); Immature Granulocytes Pct Auto 0.5 % (0.0-0.5); Lymphocytes Absolute Auto 2.9 10^3/uL (1.2-3.8); Lymphocytes Percent Auto 37.1 % (20.5-60.0); Mean Corpuscular HGB Conc 33.9 g/dL (29.9-35.2); Mean Corpuscular Hemoglobin 31.6 pg (25.9-34.0); Mean Corpuscular Volume 93.2 fL (80.0-94.0); Monocytes Absolute Auto 0.7 10^3/uL (0.3-0.8); Monocytes Percent Auto 8.9 % (1.7-12.0); Neutrophils Absolute Auto 3.8 10^3/uL (1.4-6.5); Neutrophils Percent Auto 48.6 % (43.0-75.0); Platelet Count 230 10^3/uL (150-450); Red Blood Count 4.69 10^6/uL (4.70-6.10); Red Cell Distribution Width 13.6 % (11.0-15.0); White Blood Count 7.8 10^3/uL (4.0-11.0)
[2024-07-23 11:52] LABS: Alanine Aminotransferase 63 U/L (16-63); Albumin Globulin Ratio 1.1; Albumin Level 3.5 g/dL (3.4-5.0); Alkaline Phosphatase 80 U/L (46-116); Anion Gap 13.7; Aspartate Amino Transferase 25 U/L (15-37); BUN Creatinine Ratio 15.7; Bilirubin Total 0.2 mg/dL (0.2-1.0); Calcium 8.7 mg/dL (8.5-10.1); Carbon Dioxide 26.5 mmol/L (21.0-32.0); Chloride 107 mmol/L (98-107); Estimated GFR (African America >60 (>=60 mL/min/1.73m^2); Estimated GFR (Non-African Ame >60 (>=60 mL/min/1.73m^2); Globulin 3.3 g/dL; Glucose 122 mg/dL (74-106); Potassium 4.2 mmol/L (3.5-5.1); Sodium 143 mmol/L (136-145); Total Protein 6.8 g/dL (6.4-8.2)
[2024-07-23 11:57] LABS: Erythrocyte Sedimentation Rate 21 mm/hr (<=15)
== END 2024-07-23 11:03 | disposition home or self-care (01) ==
PROVIDERS: PCP Family Medicine; Visit Provider Internal Medicine Rheumatology
DX: Z51.81 Encounter for therapeutic drug level monitoring (principal); L40.59 Other psoriatic arthropathy
CPT/HCPCS: 36415; 80053; 85025; 85652

== ENCOUNTER 2025-02-21 12:58 | Outpatient (OUT) | payer BC, SELFPAY ==
--- OUTSIDE RECORDS SUMMARY | 2025-02-21 13:02 | XMS_ITS | Encounter Summary ---
Author Organization [facility] Address [address], [address] [place] [address] Care Team Providers Care Pulley Worker Name Role Phone Hipolito Ruiz MD Primary Care Provider [phone] Reason for Visit * Reason Onset Date Comments Medication Refill 07/12/2012 requests refil l for omeprazole 20mg Encounter Details Date Type Department Care Team (Late st Contact Info) Description 07/12/2012 Refill [facility] [address] [place] [address] Hipolito Ruiz MD [address] [facility] [address] [place] [address] Medication Refill (requests refill for omeprazole 20mg) Social History Tobacco Use Types Packs/Day Years Used Date Smoking Tobacco: Former Smokeless Tobacco: Never Alcohol Use Standard Drinks/Week Comments No 0 (1 standard drink = 0.6 oz pur e alcohol) Sex and Gender Information Value Date Recorded Sex Assigned at Not on file Legal Sex Male 9:16 AM EST Gender Identity Not on file Sexual Orientation Not on file documented as of this encounter Plan of Treatment Not on file documented as of this encounter Visit Diagnoses Not on filedocumented in this encounter Care Teams Pulley Worker Relationship Specialty Start Date End Date Hipolito Ruiz MD PCP - General Internal Medicine 04/14/12 documented as of this encounter
--- OUTSIDE RECORDS SUMMARY | 2025-02-21 13:02 | XMS_ITS | Encounter Summary ---
Author Organization [facility] Address [id number] [place] [address] Care Team Providers Care Ldr Nurse Name Role Phone Lawson Hodge DO Primary Care Provider [phone] Encounter Details Date Type Department Care Team (Late st Contact Info) Description 02/17/2024 Telephone [facility] Internal Medicine - Family Medicine [address] [place] [phone] Mali Dobbs CMA Social History Tobacco Use Types Packs/Day Years Used Date Smoking Tobacco: Every Day Cigarettes 0.5 21 Smokeless Tobacco: Never Alcohol Use Standard Drinks/Week Comments Yes 3 (1 standard drink = 0.6 oz pur e alcohol) occiasonally PHQ-2 Answer Date Recorded Total Score 0 02/10/2024 Childcare Answer Date Recorded Childcare Unknown 11/19/2018 Employment Answer Date Recorded Employment Unknown 11/19/2018 Hunger Screening Answer Date Recorded Within the past 12 months we worried whether our food would run out before we got money to buy more. Never True 02/10/2024 Within the past 12 months th e food we bought just didn't last and we didn't have money to get more. Never True 02/10/2024 Purpose - Life Answer Date Recorded Purpose and direction in life Unknown Sex and Gender Information Value Date Recorded Sex Assigned at Not on file Legal Sex Male 11:37 AM EDT Gender Identity Not on file Sexual Orientation Not on file documented as of this encounter Miscellaneous Notes * Telephone Encounter - Mali Dobbs CMA - 02/17/2024 4:43 PM EDT Pts called requesting a referral to Dr Tim Corley in [place] for his Plax psoriasis , theyalready have an appointment scheduled Fax # [phone] * Telephone Encounter - Lawson Hodge DO - 02/17/2024 4:43 PM EDT He should see a financial services counselor not a cable way operator. His Otezla was denied because he has not seen adermatologist. I spoke to the drug rep who told me have a program to get him the medication for free for a year and we can get him in to see a financial services counselor in the meantime. I can send that into the mail order pharmacy in [place] if he agrees. I did send a similar message through his portal * Telephone Encounter - Mali Dobbs CMA - 02/17/2024 4:43 PM EDT Called left vm on wifes vm to call back or msg back on mychart * Telephone Encounter - Mali Dobbs CMA - 02/17/2024 4:43 PM EDT I called pts again still no call back documented in this encounter Plan of Treatment Upcoming Encounters Date Type Department Care Team (Late st Contact Info) Description 05/15/2025 9:30 AM EST Office Visit [facility] - Family Medicine [address] [place] [phone] Lawson Hodge DO [address] [place] [address] documented as of this encounter Visit Diagnoses Not on filedocumented in this encounter Additional Health Concerns Assessment Noted Time PHQ-9 Depression Total Score: 0 02/10/20 24 10:23 AM EDT A Body Mass Index follow-up plan has been documented for the patient 10/19/2023 9:52 AM EDT documented as of this encounter Care Teams Ldr Nurse Relationship Specialty Start Date End Date Lawson Hodge DO [address] [facility] [place] [address] PCP - General Family Medicine 04/04/22 documented as of this encounter
--- OUTSIDE RECORDS SUMMARY | 2025-02-21 13:02 | XMS_ITS | Encounter Summary ---
Author Organization [facility] Address [address], [address] [place] [address] Care Team Providers Care Surgical Asst Name Role Phone Hipolito Ruiz MD Primary Care Provider [phone] Reason for Visit * Reason Onset Date Comments Medication Refill 01/23/2015 Encounter Details Date Type Department Care Team (Late st Contact Info) Description 01/23/2015 Refill [facility] [address] [place] [address] Hipolito Ruiz MD [address] [facility] [address] [place] [address] Medication Refill Social History Tobacco Use Types Packs/Day Years Used Date Smoking Tobacco: Former Cigarettes Smokeless Tobacco: Never Alcohol Use Standard Drinks/Week [...] on filedocumented in this encounter Care Teams Surgical Asst Relationship Specialty Start Date End Date Hipolito Ruiz MD PCP - General Internal Medicine 04/14/12 documented as of this encounter
--- OUTSIDE RECORDS SUMMARY | 2025-02-21 13:02 | XMS_ITS | Encounter Summary ---
Author Organization [facility] Address [address] [place] [address] Phone Care Team Providers Care Artist Consultant Name Role Phone Lawson Hodge DO Primary Care Provider Encounter Details Date Type Department Care Team (Late st Contact Info) Description 03/23/2024 Scanned Document [facility] [address] [place] [phone] Scanning, Generic Provider Social History Tobacco Use Types Packs/Day Years Used Date Smoking Tobacco: Every Day Cigarettes Smokeless Tobacco: Never Alcohol Use Standard Drinks/Week Comments Not Currently 0 (1 standard drink = 0.6 oz pur e alcohol) Sex and Gender Information Value Date Recorded Sex Assigned at Not on file Legal Sex Male 9:24 PM EST Gender Identity Not on file Sexual Orientation Not on file documented as of this encounter Plan of Treatment Upcoming Encounters Date Type Department Care Team (Late st Contact Info) Description 02/01/2026 2:00 PM EDT Office Visit [facility] [address] [facility] [address] [place] [address] Rosemarie Doshi MD [address] [facility] [address] [place] [address] documented as of this encounter Visit Diagnoses Not on filedocumented in this encounter Care Teams Artist Consultant Relationship Specialty Start Date End Date Lawson Hodge DO PCP - General 12/23/20 documented as of this encounter
--- OUTSIDE RECORDS SUMMARY | 2025-02-21 13:02 | XMS_ITS | Clinical Summary ---
Author Organization [facility] Address [address] [place] [address] Phone Care Team Providers Care Machine Load Clerk Name Role Phone Lawson Hodge DO Primary Care Provider Allergies Active Allergy Reactions Criticality Noted Date Comments Shellfish Derived Anaphylaxis High 04/22/2023 Medications citalopram (CeleXA) 40 mg tablet Take 1 tablet (40 mg) by mouth once daily. Active cetirizine (ZyrTEC) 10 mg chewable tablet Chew and swallow 1 tablet (10 mg) once daily. Active amitriptyline (Elavil) 25 mg tablet Take 1 tablet (25 mg) by mouth 2 times a day. Active perphenazine 2 mg tablet Take 1 tablet (2 mg) by mouth 2 times a day. Active magnesium 200 mg tablet Take 1 tablet (200 mg) by mouth 2 times a day. Active fish oil/om-3/E/folic /B6-B12 (CARDIOVID PLUS ORAL) Take 1 tablet by mouth 2 times a day. Active LORazepam (Ativan) 1 mg tablet Take 1 tablet (1 mg) by mouth every 6 hours if needed for anxiety. Active folic acid (Folvite) 1 mg tablet Take 1 tablet (1 mg) by mouth early in the morning.. 4 Active methotrexate (Trexall) 2.5 mg tablet Take 8 tablets (20 mg total) by mouth 1 (one) time per week. 4 Active carvedilol (Coreg) 3.125 mg tabletIndication s:Ventricular ectopic beats,Palpitatio ns Take 1 tablet (3.125 mg) by mouth 2 times daily (morning and late afternoon). 180 tablet 3 5 Active carvedilol (Coreg) 3.125 mg tabletIndication s:Palpitations,V entricular ectopic beats TAKE 1 TABLET BY MOUTH TWICE DAILY WITH MEALS 180 tablet 3 4 02/03/20 25 Discontinu ed(Reorder ) omeprazole (PriLOSEC) [address] capsuleIndicatio ns:Chest pain, unspecified type Take 1 capsule (40 mg) by mouth once daily in the morning. Take before meals. Do not crush or chew. 90 capsule 3 4 02/03/20 25 Discontinu ed(Therapy completed) Active Problems Problem Noted Date Diagnosed Date Mixed hyperlipidemia 02/02/2025 Current smoker 04/28/2024 Chest pain 04/28/2024 Palpitations 04/22/2023 Ventricular ectopic beats 04/22/2023 Shortness of breath 04/22/2023 PAC (premature atrial contraction) 04/22/2023 BMI 31.0-31.9,adult 04/22/2023 Encounters Date Type Department Care Team Description 02/02/2025 2:00 PM EDT Office Visit [address] [address] Rosemarie Doshi MD Palpitations (Primary Dx); Ventricular ectopic beats; PAC (premature atrial contraction); Chest pain, unspecified type; BMI 31.0-31.9,adult; Shortness of breath; Current smoker; Mixed hyperlipidemia 02/02/2025 Travel from Last 3 Months Family History Medical History Relation Name Comments Diabetes Father Heart attack Father Diabetes Mother Relation Name Status Comments Father Mother Social History Tobacco Use Types Packs/Day Years Used Date Smoking Tobacco: Every Day Cigarettes 0.5 30 Started: 1994 Smokeless Tobacco: Never Tobacco Cessation:Counseling Given: Yes Alcohol Use Standard Drinks/Week Comments Yes 5 (1 standard drink = 0.6 oz pur e alcohol) social Sex and Gender Information Value Date Recorded Sex Assigned at Not on file Legal Sex Male 9:24 PM EST Gender Identity Not on file Sexual Orientation Not on file Last Filed Vital Signs Vital Sign Reading Time Taken Comments Blood Pressure 122/80 02/02/2025 1:56 PM EDT Pulse 68 02/02/2025 1:56 PM EDT Temperature - - Respiratory Rate - - Oxygen Saturation - - Inhaled Oxygen Concentration - - Weight 106 kg (233 lb) 02/02/2025 1:56 PM EDT Height 182.9 cm (6') 02/02/2025 1:56 PM EDT Body Mass Index 31.6 02/02/2025 1:56 PM EDT Plan of Treatment Upcoming Encounters Date Type Department Care Team (Late st Contact Info) Description 02/01/2026 2:00 PM EDT Office Visit [facility] [address] [facility] [address] [place] [address] Rosemarie Doshi MD [address] [facility] [address] [place] [address] Health Maintenance Due Date Last Done Comments CT Colonography 1978 Colonoscopy 1978 Colorectal Cancer Screening 1978 FIT-DNA (Cologuard) 1978 FIT 1978 HIV Screening 1978 Lipid Panel 1978 Sigmoidoscopy 1978 MMR Vaccines (1 of 1 - Stand tatiana series) 11/19/1979 COVID-19 Vaccine (#1) 11/19/1983 Diabetes Screening 1996 Hepatitis C Screening 1996 Hepatitis B Vaccines (1 of 3 - 19+ 3-dose series) 1997 Pneumococcal Vaccine: Pediat rics and At-Risk Adult Patients (1 of 2 - PCV) 1997 DTaP/Tdap/Td Vaccines (1 - Tdap) 2000 Influenza Vaccine (#1) 2025 Yearly Adult Physical 05/13/2025 05/12/2024 Zoster Vaccines (1 of 2) 2028 HIB Vaccines Aged Out No longer eligi ble based on patient's age to complete this topic HPV Vaccines Aged Out No longer eligi ble based on patient's age to complete this topic Hepatitis A Vaccines Aged Out No long er eligible based on patient's age to complete this topic IPV Vaccines Aged Out No longer eligi ble based on patient's age to complete this topic Meningococcal Vaccine Aged Out No juan david marcelo eligible based on patient's age to complete this topic Rotavirus Vaccines Aged Out No longer eligible based on patient's age to complete this topic Insurance [facility] Care Teams Machine Load Clerk Relationship Specialty Start Date End Date Lawson Hodge DO PCP - General 06/13/20
--- OUTSIDE RECORDS SUMMARY | 2025-02-21 13:02 | XMS_ITS | Encounter Summary ---
Author Organization [facility] Address [facility] [id number] [address] [place] [address] Care Team Providers Care Field Application Engineer Name Role Phone Lawson Hodge DO Primary Care Provider + [phone] Encounter Details Date Type Department Care Team (Late st Contact Info) Description 04/07/2022 Orders Only [facility] Internal Medicine - Family Medicine [address] [place] [phone] External, Scanning Provider Social History Tobacco Use Types Packs/Day Years Used Date Smoking Tobacco: Every Day Cigarettes 0.5 21 Smokeless Tobacco: Never Alcohol Use Standard Drinks/Week Comments No 0 (1 standard drink = 0.6 oz pur e alcohol) Childcare Answer Date Recorded Childcare Unknown 11/19/2018 Employment Answer Date Recorded Employment Unknown 11/19/2018 Purpose - Life Answer Date Recorded Purpose and direction in life Unknown Sex and Gender Information Value Date Recorded Sex Assigned at Not on file Legal Sex Male 11:37 AM EDT Gender Identity Not on file Sexual Orientation Not on file COVID-19 Exposure Response Date Recorded In the last month, have you been in contact with someone who was confirmed or suspected to have Coronavirus / COVID-19? No / Unsure 03/25/2022 3:32 PM EDT documented as of this encounter Plan of Treatment Upcoming Encounters Date Type Department Care Team (Late st Contact Info) Description 05/15/2025 9:30 AM EST Office [facility] - Family Medicine [address] [place] [phone] Lawson Hodge DO [address], [place] [address] documented as of this encounter Visit Diagnoses Not on filedocumented in this encounter Additional Health Concerns Assessment Noted Time PHQ-9 Depression Total Score: 0 10/18/19 17 1:00 PM EDT documented as of this encounter Care Teams Field Application Engineer Relationship Specialty Start Date End Date Lawson Hodge DO [address], [facility] [place] [address] PCP - General Family Medicine 04/04/22 documented as of this encounter
--- OUTSIDE RECORDS SUMMARY | 2025-02-21 13:02 | XMS_ITS | Clinical Summary ---
Author Organization [employer] [facility] Address [facility] [id number] [address] [place] [address] Care Team Providers Care Bonus Clerk Name Role Phone Lawson Hodge DO Primary Care Provider + [phone] Allergies Active Allergy Reactions Criticality Noted Date Comments Penicillin G Other (See Comments) 02/20/2021 Shellfish Containing Products Anaphylaxis High 10/17 Medications * This document contains information received from the source organization and may not represent a complete record from that organization. carvediloL (COREG) 3.125 mg tablet Take 1 tablet (3.125 mg total) by mouth in the morning and 1 tablet (3.125 mg total) before bedtime. 10/29/19 23 Active cetirizine (ZyrTEC) 10 MG chewable tablet Chew 1 tablet (10 mg total) and swallow in the morning. Active magnesium 200 mg tablet Take 200 mg by mouth in the morning and 200 mg before bedtime. Active ibuprofen (MOTRIN) 800 mg tabletIndications: Strain of lumbar paraspinous muscle, subsequent encounter Take 1 tablet (800 mg total) by mouth every 8 (eight) hours as needed for pain. 60 tablet 10/19/19 24 Active triamcinolone (KENALOG) 0.5 % cream Apply 1 Application topically in the morning and 1 Application before bedtime. 30 g 1 02/16/20 24 Active ondansetron ODT (ZOFRAN ODT) 8 mg disintegrating tablet Dissolve 1 tablet (8 mg total) on tongue every 8 (eight) hours as needed for nausea or vomiting. 20 tablet 02/16/20 24 Active omeprazole (PriLOSEC) 40 mg capsule Take 1 capsule (40 mg total) by mouth. 04/28/20 24 025 Active methotrexate 2.5 mg chemo tablet Take 6 tablets by mouth 04/19/20 24 Active folic acid (FOLVITE) 1 mg tablet Take 1 tablet (1 mg total) by mouth in the morning. 04/21/20 24 Active citalopram (CeleXA) 40 mg tablet TAKE 1 TABLET DAILY 90 tablet 2 06/20/20 24 Active perphenazine (TRILAFON) 2 mg tabletIndications: Generalized anxiety disorder Take 1 tablet (2 mg total) by mouth in the morning and 1 tablet (2 mg total) before bedtime. 180 tablet 3 09/22/19 25 Active amitriptyline (ELAVIL) 25 mg tabletIndications: Generalized anxiety disorder Take 1 tablet (25 mg total) by mouth in the morning and 1 tablet (25 mg total) before bedtime. 180 tablet 3 09/22/19 25 Active LORazepam (ATIVAN) 1 mg tabletIndications: Generalized anxiety disorder Take 1 tablet (1 mg total) by mouth every 12 (twelve) hours as needed for anxiety. 60 tablet 10/01/19 25 Active Active Problems Problem Noted Date Diagnosed Date Class 1 obesity due to exces s calories with serious comorbidity and body mass index (BMI) of 30.0 to 30.9 in adult 05/12/2024 PAC (premature atrial contraction) 04/22/2023 Ventricular ectopic beats 04/22/2023 MDD (major depressive disord er), recurrent, in full remission 07/02/2017 Generalized anxiety disorder with panic attacks 01/27/2017 Tobacco abuse 11/14/2016 Depression with anxiety 11/14/2016 Gastroesophageal reflux disease 09/16/2012 Overview (10/17/2016): Overview: replace inactive diagnosis Psoriasis Resolved Problems Problem Noted Date Diagnosed Date Resolved Date Agoraphobia 08/24/2017 03/19/2018 Immunizations Immunization Administration Dates Next Due Tdap 12/14/2013,11/20/2013 Family History Medical History Relation Name Comments Diabetes Father Heart disease Father Diabetes Mother Relation Name Status Comments Father Alive Mother Alive Social History Tobacco Use Types Packs/Day Years Used Date Smoking Tobacco: Every Day Cigarettes 1 28.1 Started: 01/09/1997 Smokeless Tobacco: Never Tobacco Cessation:Ready to Q uit: Not Asked; Counseling Given: Not Answered Alcohol Use Standard Drinks/Week Comments Yes 3 (1 standard drink = 0.6 oz pur e alcohol) occiasonally [facility] Utilities Answer Date Recorded In the past 12 months has th e electric, gas, oil, or water company threatened to shut off services in your home? No 05/12/2024 Social Connection and Isolat ion Panel [NHANES] Answer Date Recorded In a typical week, how many times do you talk on the phone with family, friends, or neighbors? More than three times a week 05/12/2024 How often do you get togethe r with friends or relatives? More than three times a week 05/12/2024 How often do you attend chur ch or hinduism services? Never 05/12/2024 Do you belong to any clubs o r organizations such as roman catholic groups, unions, fraternal or athletic groups, or school groups? Yes 05/12/2024 How often do you attend meet ings of the clubs or organizations you belong to? 1 to 4 times per year 05/12/2024 Are you , , di vorced, , never , or living with a partner? 05/12/2024 AUDIT-C Answer Date Recorded Q1: How often do you have a drink containing alc ohol? 2-3 times a week 05/12/2024 Q2: How many drinks containi ng alcohol do you have on a typical day when you are drinking? 1 or 2 05/12/2024 Q3: How often do you have si x or more drinks on one occasion? Never 05/12/2024 Overall Financial Resource Strain (CARDIA) Answe r Date Recorded How hard is it for you to pa y for the very basics like food, housing, medical care, and heating? Not hard at all 05/12/2024 PHQ-2 Answer Date Recorded Total Score 0 05/12/2024 [facility] - Occupational Stress Questionnaire Answer Date Recorded Do you feel stress - tense, restless, nervous, or anxious, or unable to sleep at night because your mind is troubled all the time - these days? Only a little 05/12/2024 Exercise Vital Sign Answer Date Recorde d On average, how many days pe r week do you engage in moderate to strenuous exercise (like a brisk walk)? 0 days 05/12/2024 On average, how many minutes do you engage in exercise at this level? 0 min 05/12/2024 PRAPARE - Transportation Answer Date Re corded In the past 12 months, has l ack of transportation kept you from medical appointments or from getting medications? No 04/23 In the past 12 months, has l ack of transportation kept you from meetings, work, or from getting things needed for daily living? No 05/12/2024 Housing Instability Answer Date Recorde d Are you worried or concerned that in the next two months you may not have stable housing that you own, rent or stay in as a part of a household? No 05/12/2024 Childcare Answer Date Recorded Do problems getting child ca re make it difficult for you to work or study? No 05/12/2024 Employment Answer Date Recorded Do you need help finding a [employer] center and/or a training program? No 05/12/2024 Hunger Screening Answer Date Recorded Within the past 12 months we worried whether our food would run out before we got money to buy more. Never True 05/12/2024 Within the past 12 months th e food we bought just didn't last and we didn't have money to get more. Never True 05/12/2024 Purpose - Life Answer Date Recorded I have a purpose and direction in my life. Agree 05/12/2024 Sex and Gender Information Value Date Recorded Sex Assigned at Not on file Legal Sex Male 11:37 AM EDT Gender Identity Not on file Sexual Orientation Not on file Last Filed Vital Signs Vital Sign Reading Time Taken Comments Blood Pressure 126/84 05/12/2024 9:16 AM EST Pulse 72 05/12/2024 9:16 AM EST Temperature 36.2 C (97.2 F) 05/12/2024 9:16 AM EST Respiratory Rate 20 02/10/2024 10:2 8 AM EDT Oxygen Saturation 98% 05/12/2024 9:16 AM EST Inhaled Oxygen Concentration - - Weight 103.3 kg (227 lb 12.8 oz) 05/12/2024 9:16 AM EST Height 182.9 cm (6') 02/10/2024 10:28 AM EDT Body Mass Index 30.9 02/10/2024 10:28 AM EDT Plan of Treatment Upcoming Encounters Date Type Department Care Team (Late st Contact Info) Description 05/15/2025 9:30 AM EST Office Visit [facility] - Family Medicine [address] [place] [address] Lawson Hodge DO [address] [facility] [place] [address] Health Maintenance Due Date Last Done Comments Tobacco Counseling 1978 Colon Cancer Screening 3 Year Cologuard 11/19/2023 DTaP,Tdap and Td Vaccines (3 - Td or Tdap) 12/15/2023 12/14/2013, 11/20/2013 Influenza Vaccine 02/20/2025 Adult BMI Screening 05/12/2025 05/12/2024 Depression Screening 05/12/2025 05/12/2024 Tobacco Screening 09/30/2025 09/30/2024 Medical Devices Not on file Insurance [employer] Care Teams Bonus Clerk Relationship Specialty Start Date End Date Lawson Hodge DO [address], [facility] [address] PCP - General Family Medicine 04/04/22
--- OUTSIDE RECORDS SUMMARY | 2025-02-21 13:02 | XMS_ITS | Encounter Summary ---
Author Organization [facility] Address [address], [address] [place] [address] Care Team Providers Care Medical Service Technician Name Role Phone Hipolito Ruiz MD Primary Care Provider [phone] Reason for Visit * Reason Comments Medication Refill Encounter Details Date Type Department Care Team (Late st Contact Info) Description 01/12/2016 Refill [facility] [address] [place] [address] Hipolito Ruiz MD [address] [facility] [address] [place] [address] Medication Refill Social History Tobacco Use Types [...] on filedocumented in this encounter Care Teams Medical Service Technician Relationship Specialty Start Date End Date Hipolito Ruiz MD PCP - General Internal Medicine 04/14/12 documented as of this encounter
--- OUTSIDE RECORDS SUMMARY | 2025-02-21 13:02 | XMS_ITS | Encounter Summary ---
Author Organization [facility] Address [address] [place] [address] Phone Care Team Providers Care C Programmer Name Role Phone Lawson Hodge DO Primary Care Provider Encounter Details Date Type Department Care Team (Late st Contact Info) Description 01/08/2021 Orders Only [facility] [address] [place] [address] Conversion, Onbase Social History Tobacco Use Types Packs/Day Years Used Date Smoking Tobacco: Never Assessed Sex and Gender Information Value Date Recorded Sex Assigned at Not on file Legal Sex Male 9:24 PM EST Gender Identity Not on file Sexual Orientation Not on file documented as of this encounter Plan of Treatment Upcoming Encounters Date Type Department Care Team (Late st Contact Info) Description 02/01/2026 2:00 PM EDT Office Visit [facility] [address] [address] Rosemarie Doshi MD [address] [facility] [address] [place] [address] Scheduled Orders Name Type Priority Associated Diagnoses Orde r Schedule OUTSIDE LAB SCAN Lab Ordered: 01/08/2021 documented as of this encounter Visit Diagnoses Not on filedocumented in this encounter Care Teams C Programmer Relationship Specialty Start Date End Date Lawson Hodge DO PCP - General 06/13/20 documented as of this encounter
--- OUTSIDE RECORDS SUMMARY | 2025-02-21 13:02 | XMS_ITS | Clinical Summary ---
Author Organization [facility] Address [address] [place] [address] Care Team Providers Care Tape Cutter Name Role Phone Unavailable Primary Care Provider Unavailabl e Social History Tobacco Use Types Packs/Day Years Used Date Smoking Tobacco: Never Assessed Sex and Gender Information Value Date Recorded Sex Assigned at Not on file Legal Sex Male 7:25 PM EDT Gender Identity Not on file Sexual Orientation Not on file Last Filed Vital Signs Vital Sign Reading Time Taken Comments Blood Pressure - - Pulse - - Temperature - - Respiratory Rate - - Oxygen Saturation - - Inhaled Oxygen Concentration - - Weight 96.6 kg (213 lb) 03/05/2020 12:00 PM EDT Height 182.9 cm (6') 03/05/2020 12:00 PM EDT Body Mass Index 28.89 03/05/2020 12:00 PM EDT Plan of Treatment Not on file Insurance BS
--- OUTSIDE RECORDS SUMMARY | 2025-02-21 13:02 | XMS_ITS | Encounter Summary ---
Author Organization [facility] Address [facility] [id number] [address] [place] [address] Care Team Providers Care Chicken Vaccinator Name Role Phone Naveen Lawson March DO Primary Care Provider + [phone] Encounter Details Date Type Department Care Team (Late st Contact Info) Description 12/05/2022 Orders Only [facility] Internal Medicine - Family Medicine [address] [place] [address] Anne-Marie Molina CMA Right supraspinatus tendinitis Social History Tobacco Use Types Packs/Day Years Used Date Smoking Tobacco: Every Day Cigarettes 0.5 21 Smokeless Tobacco: Never Alcohol Use Standard Drinks/Week Comments No 0 (1 standard drink = 0.6 oz pur e alcohol) PHQ-2 Answer Date Recorded Total Score 0 11/06/2022 Childcare Answer Date Recorded Childcare Unknown 11/19/2018 Employment Answer Date Recorded Employment Unknown 11/19/2018 Hunger Screening Answer Date Recorded Within the past 12 months we worried whether our food would run out before we got money to buy more. Never True 11/06/2022 Within the past 12 months th e food we bought just didn't last and we didn't have money to get more. Never True 11/06/2022 Purpose - Life Answer Date Recorded Purpose [...] - Family Medicine [address] [place] [address] Lawson Hodge DO [address], [facility] [address] documented as of this encounter Procedures Procedure Name Priority Date/Time Associated Diagnosis Comments XR SHOULDER RT MIN 2 VWS Routine 12/05/2022 11:03 AM EDT Right supraspinatus tendinitis documented in this encounter Results * X-ray shoulder right minimum 2 views (12/05/2022 11:03 AM EDT) Anatomical Region Laterality Modality MSK, Upper Extremities, Shoulder Right Computed Radiography Ella Ray MERCHANDISE EXAMINER-MANAGER OF LOSS PREVENTION OPERATIONS IMG DIAGNOSTIC IMAGING O RDERABLES Final Result documented in this encounter Visit Diagnoses Diagnosis Right supraspinatus tendinitis documented in this encounter Additional Health Concerns Assessment Noted Time PHQ-9 Depression Total Score: 0 11/07/19 23 1:08 PM EDT documented as of this encounter Care Teams Chicken Vaccinator Relationship Specialty Start Date End Date Lawson Hodge DO [address] [place] [address] PCP - General Family Medicine 04/04/22 documented as of this encounter
--- OUTSIDE RECORDS SUMMARY | 2025-02-21 13:02 | XMS_ITS | Clinical Summary ---
Author Organization [facility] Address [address], [address] [place] [address] Care Team Providers Care Asparagus Buncher Name Role Phone Hipolito Ruiz MD Primary Care Provider [phone] Allergies Active Allergy Reactions Criticality Noted Date Comments Shellfish-Derived Products Diarrhea,Naus ea And Vomiting Low 04/14/2012 Medications Cetirizine HCl (ZYRTEC PO) Take by mouth daily. Active omeprazole (PRILOSEC) 20 MG capsule TAKE 1 CAPSULE EVERY DAY 30 capsule 6 07/12/2012 Active LORazepam (ATIVAN) 0.5 MG tablet Take 1 tablet by mouth 2 times daily as needed. 180 tablet 1 01/30/2014 Active citalopram (CELEXA) 40 MG tablet TAKE 1 TABLET DAILY 90 tablet 3 01/23/2015 Active citalopram (CELEXA) 40 MG tablet TAKE 1 TABLET DAILY 90 tablet 3 01/12/2016 Active Active Problems Problem Noted Date Diagnosed Date Gastroesophageal reflux disease 09/16/2012 Overview (02/26/2015): replace inactive diagnosis Family History Relation Name Status Comments Brother Alive Father Alive Mother Alive Social History Tobacco [...] Sign Reading Time Taken Comments Blood Pressure 112/70 02/16/2015 8:37 AM EDT Pulse 68 02/16/2015 8:37 AM EDT Temperature 36.5 C (97.7 F) 04/06/2013 7:28 PM EDT Respiratory Rate 16 02/16/2015 8:37 AM EDT Oxygen Saturation 98% 07/21/2012 1:45 PM EST Inhaled Oxygen Concentration - - Weight 92.5 kg (204 lb) 02/16/2015 8:37 AM EDT Height 182.9 cm (6') 02/16/2015 8:37 AM EDT Body Mass Index 27.67 02/16/2015 8:37 AM EDT Plan of Treatment Not on file Insurance [facility] [place] BCBS * Guarantor: JACKELYN EDDY Account Type Relation to Patient Date of Phone Billing Address Corporate Employer Care Teams Asparagus Buncher Relationship Specialty Start Date End Date Hipolito Ruiz MD PCP - General Internal Medicine 04/14/12
--- OUTSIDE RECORDS SUMMARY | 2025-02-21 13:02 | XMS_ITS | Encounter Summary ---
Author Organization [facility] tem Address [id number] [address] [place] [address] Care Team Providers Care Can Handler Name Role Phone Lawson Hodge DO Primary Care Provider + [phone] Encounter Details Date Type Department Care Team (Late st Contact Info) Description 04/16/2022 Telephone [facility] Internal [facility] - Family Medicine [address] [place] [address] Lawson Hodge DO [address] [place] [address] Social History Tobacco Use Types Packs/Day Years [...] Encounters Date Type Department Care Team (Late Contact Info) Description 05/15/2025 9:30 AM EST Office Visit [facility] Internal Medicine - Family Medicine [address] [place] [address] Lawson Hodge DO [address] [facility] [place] [address] documented as of this encounter Visit Diagnoses Not on filedocumented in this encounter Additional Health Concerns Assessment Noted Time PHQ-9 Depression Total Score: 0 10/18/19 17 1:00 PM EDT documented as of this encounter Care Teams Can Handler Relationship Specialty Start Date End Date Lawson Hodge DO [address] [facility] [place] [address] PCP - General Family Medicine 04/04/22 documented as of this encounter
--- OUTSIDE RECORDS SUMMARY | 2025-02-21 13:02 | XMS_ITS | Encounter Summary ---
Author Organization [facility] tem Address [facility] [id number] [address] [place] [address] Care Team Providers Care Tail Worker Name Role Phone ManiLawson henderson Primary Care Provider + [phone] Reason for Visit * Reason Onset Date Comments Med Refill 03/11/2023 Encounter Details Date Type Department Care Team (Late st Contact Info) Description 03/11/2023 Refill [facility] Internal Medicine/Hipolito Ruiz MD [address] [id number] Hipolito Ruiz MD [address] [id number] Social History Tobacco Use Types Packs/Day Years [...] Medicine - Family Medicine [address] [place] [address] Lawson Hodge DO [address] [facility] [place] [address] documented as of this encounter Visit Diagnoses Not on filedocumented in this encounter Additional Health Concerns Assessment Noted Time PHQ-9 Depression Total Score: 0 11/07/19 23 1:08 PM EDT documented as of this encounter Care Teams Tail Worker Relationship Specialty Start Date End Date Lawson Hodge DO [address] [facility] [place] [address] PCP - General Family Medicine 04/04/22 documented as of this encounter
--- OUTSIDE RECORDS SUMMARY | 2025-02-21 13:06 | XMS_ITS | CCD ---
Author Organization [facility] Care Team Providers Care Coating And Embossing Unit Operator Name Role Phone DR ANNITA JOHNSON Consulting Unavailable ALEX, DR ARIZA Admitting Unavailable FURLONG, DR LAWSON March Primary Care Unavailable HAY, DR ARIZA Attending Unavailable Amy Larson Consulting Unavailable EDDA, DR TO Espana Admitting Unavailable EDDA, DR TO Espan[place] Attending Unavailable EDDA, DR TO [place]span[place] Consulting Unavailable FURBRYCE, DR LAWSON March Primary Care Unavailable Ritter, Wincha Consulting Unavailable ALEX, DR ARIZA Attending Unavailable ALEX, DR ARIZA Consulting Unavailable FURLONG, DR LAWSON March Primary Care Unavailable ALEX, DR ARIZA Admitting Unavailable AHDOOT, PIPER Consulting Unavailable Lawson Hodge Unavailable Unavailable Unavailable Lawson Hodge Primary Care Unavailab kalina Doshi, Dr. [place] Attending Unavaila nael Doshi, Dr. [place] Referring Unavaila ble Lawson Hodge DO Primary Care Provider MD Hipolito Ruiz Primary Care Provider MD Srinivas Moncada Attending Provider SRINIVAS MONCADA Referring Unavailable Srinivas Moncada Admitting Unavailable Srinivas Moncada Attending Unavailable Hipolito Ruiz Primary Care Unavailable Lawson Hodge DO Primary Care Provider PAOLO HAMMONDS Attending Unavailable CARLEYLONGLAWSON Referring Unavailable FURLONG, LAWSON March Primary Care Unavailable FURLONG, LAWSON March Attending Unavailable FURLONG, LAWSON G Referring Unavailable FURLONG, LAWSON March Primary Care Unavailable FURLONG, LAWSON March Attending Unavailable FURLONG, LAWSON March Referring Unavailable FURLONG, LAWSON March Primary Care Unavailable FURLONG, LAWSON March Referring Unavailable FURLONG, LAWSON G Primary Care Unavailable TRABOULSSI, MOURHAF Referring Unavailable CARLEYLONG, LAWSON ALYSA Primary Care Unavailab le Lawson Hodge DO Primary Care Provider Lawson Hodge DO Primary Care Provider CHARIS SCHOFIELD Attending Unavailable LAWSON HODGE G Referring Unavailable CARLEYLOSANTIAGO, LAWSON G Primary Care Unavailable TRABOULSSI, MOURHAF Attending Unavailable TRABOULSSI, MOURHAF Referring Unavailable CARLEYLONG, LAWSON ALYSA Primary Care Unavailab le TRABOULSSI, MOURHAF Attending Unavailable TRABOULSSI, MOURHAF Referring Unavailable CARLEYLONG, LAWSON ALYSA Primary Care Unavailab le TRABOULSSI, MOURHAF Attending Unavailable TRABOULSSI, MOURHAF Referring Unavailable CARLEYLONG, LAWSON ALYSA Primary Care Unavailab le Allergies Allergy Classification Reported Allergen(s) Allergy Type Date of Onset Reaction(s) Facility Shellfish (1 source) Shellfish Food Allergy 3 [facility] Repository (4 sources) Penicillins; Translations: [Penicillins] Allergy to drug (finding) [facility] [employer] DO Work Phone: (4 sources) Shellfish-deriv ed Products; Translations: [Shellfish-deri portillo Products] Allergy to drug (finding) [employer] DO Work Phone: (9 sources) Shellfish; Translations: [shellfish derived] Propensity to adverse reactions 1 Anaphylaxis [facility] (7 sources) Penicillin; Translations: [penicillin G] Drug Allergy 1 Other (See Comments) [facility] (15 sources) SHELLFISH CONTAINING PRODUCTS; Translations: [SHELLFISH CONTAINING PRODUCTS] Propensity to adverse reactions to food (disorder) 7 Anaphylaxis [facility] Medications Current Medications Medication Drug Class(es) Dates Sig (Normalized) Sig (Original) amitriptyline hydrochloride 25 mg oral tablet (20 sources) Tricyclic Antidepressant Start: 09-21-2023 take 1 tablet by mouth at bedtime amitriptyline (ELAVIL) 25 mg tablet Indications: Generalized anxiety disorder Take 1 tablet (25 mg total) by mouth in the morning and at bedtime. 180 tablet 3 09/21/2023 Active apremilast 30 mg oral tablet (7 sources) Start: 02-10-2024 End: 05-12-2024 take 1 tablet by mouth in the morning, then take 1 tablet by mouth at bedtime apremilast (OTEZLA) 30 mg tablet Indications: Psoriasis Take 1 tablet (30 mg total) by mouth in the morning and 1 tablet (30 mg total) before bedtime. 180 tablet 1 02/10/2024 05/12/2024 Discontinued (Side effects) carvedilol 3.125 mg oral tablet (20 sources) alpha-Adrenergic Jaden, beta-Adrenergic Jaden Start: 10-21-2021 End: 02-02-2025 take 1 tablet by mouth twice daily carvedilol (Coreg) 3.125 mg tablet Indications: Ventricular ectopic beats , Palpitations Take 1 tablet (3.125 mg) by mouth 2 times daily (morning and late afternoon). 180 tablet 3 02/02/2025 Active cetirizine hydrochloride 10 mg chewable tablet (20 sources) Histamine-1 Receptor Antagonist cetirizine (ZyrTEC) 10 mg chewable tablet Chew and swallow 1 tablet (10 mg) once daily. Active Zyrtec 10 MG TAB S TAKE 1 TABLET DAILY. Quantity: 0 Refills: 0 Ordered: 11-Jul-2021 DO Active citalopram 40 mg oral tablet (20 sources) Serotonin Reuptake Inhibitor Start: 06-20-2024 citalopram (CeleXA) 40 mg tablet TAKE 1 TABLET DAILY 90 tablet 2 06/20/2024 Active Start: 04-19-2023 End: 06-20-2024 citalopram (CeleXA) 40 mg ta blet take 1 tablet daily 90 tablet 03/22/2024 Active fish oil/om-3/E/folic/B6-B12 (CARDIOVID PLUS ORAL) (5 sources) take 1 tablet by mouth twice daily fish oil/om-3/E/folic/B6-B12 (CARDIOVID PLUS ORAL) Take 1 tablet by mouth 2 times a day. Active take 1 tablet by twice daily fish oil/om-3/E/folic/B6-B12 (CARDIOVID PLUS ORAL) Take 1 tablet by mouth 2 times a day. 0 Active folic acid 1 mg oral tablet (6 sources) Start: 04-21-2024 take 1 tablet by mouth in the morning folic acid (Folvite) 1 mg tablet Take 1 tablet (1 mg) by mouth early in the morning.. 04/21/2024 Active ibuprofen 800 mg oral tablet (13 sources) Nonsteroidal Anti-inflammatory Drug Start: 11-06-2022 End: 10-19-2023 take 1 tablet by mouth every eight hours as needed for pain ibuprofen (MOTRIN) 800 mg tablet Indications: Strain of lumbar paraspinous muscle, subsequent encounter Take 1 tablet (800 mg total) by mouth every 8 (eight) hours as needed for pain. 60 tablet 10/19/2023 Active LORazepam 1 mg oral tablet (19 sources) Benzodiazepine Start: 03-10-2024 take 1 tablet by mouth once as needed LORazepam (ATIVAN) 1 mg tablet Indications: Generalized anxiety disorder Take 1 tablet (1 mg total) by mouth every 12 (twelve) hours as needed for anxiety. 60 tablet 03/10/2024 Active Start: 05-05-2023 take 1 tablet by anand th once as needed LORazepam (ATIVAN) 1 mg tablet Indications: Generalized anxiety disorder Take 1 tablet (1 mg total) by mouth every 12 (twelve) hours as needed for anxiety. 60 tablet 05/05/2023 Active Start: 06-06-2022 LORazepam 1 MG Oral Tablet TAKE 1/2 TO 1 TABLET NEEDED FOR ANXIETY. Quantity: 0 Refills: 0 Ordered: 06-Jun-2022 DO Start : 06-Jun-2022 Active Magnesium (20 sources) take 1 tablet by anand th [...] 0 Refills: 0 Ordered: 11-Jul-2021 DO Active methocarbamol 750 mg oral tablet (2 sources) Muscle Relaxant Start: 10-19-2023 End: 10-29-2023 take 1 tablet by mouth three times daily methocarbamoL (ROBAXIN) 750 mg tablet Indications: Strain of lumbar paraspinous muscle, subsequent encounter Take 1 tablet (750 mg total) by mouth 3 (three) times a day for 10 days. 30 tablet 10/19/2023 10/29/2023 Active Start: 10-14-2023 End: 10-19-2023 take 1 tablet by mouth every six hours as needed for pain methocarbamoL (ROBAXIN) 750 mg tablet TAKE 1 TABLET BY MOUTH EVERY 6 HOURS NEEDED FOR PAIN 10/14/2023 10/19/2023 Discontinued (Reorder) methotrexate 2.5 mg oral tablet (6 sources) Folate Analog Metabolic Inhibitor Start: 04-19-2024 take 8 tablets by mouth every week methotrexate (Trexall) 2.5 mg tablet Take 8 tablets (20 mg total) by mouth 1 (one) time per week. 04/19/2024 Active Start: 04-19-2024 methotrexate 2 .5 mg chemo tablet Take 6 tablets by mouth 04/19/2024 Active ondansetron 8 mg disintegrating oral tablet (7 sources) Serotonin-3 Receptor Antagonist Start: 02-16-2024 take 1 tablet by mouth every eight hours as needed for nausea and vomiting ondansetron ODT (ZOFRAN ODT) 8 mg disintegrating tablet Dissolve 1 tablet (8 mg total) on tongue every 8 (eight) hours as needed for nausea or vomiting. 20 tablet 02/16/2024 Active perphenazine 2 mg oral tablet (20 sources) Phenothiazine Start: 09-21-2023 take 1 tablet by mouth at bedtime perphenazine (TRILAFON) 2 mg tablet Indications: Generalized anxiety disorder Take 1 tablet (2 mg total) by mouth in the morning and at bedtime. 180 tablet 3 09/21/2023 Active triamcinolone acetonide 5 mg/ml topical cream (7 sources) Corticosteroid Start: 02-16-2024 triamcinolone (KENALOG) 0.5 % cream Apply 1 Application topically in the morning and 1 Application before bedtime. 30 g 1 02/16/2024 Active Completed/Discontinued Medications Medication Drug Class(es) Dates Sig (Normalized) Sig (Original) nabumetone 750 mg oral tablet (1 source) Nonsteroidal Anti-inflammatory Drug Start: 10-14-2023 End: 10-19-2023 take 1 tablet by mouth twice daily as needed for pain nabumetone (RELAFEN) 750 mg tablet TAKE 1 TABLET BY MOUTH TWICE A DAY NEEDED FOR PAIN 10/14/2023 10/19/2023 Discontinued (Therapy completed) [place] 3 CAPS (4 sources) [place] 3 CAPS VERONIQUE E 2 CAPSULE Daily Quantity: 0 Refills: 0 Ordered: 11-Jul-2021 DO Active omeprazole 40 mg delayed release oral capsule (6 sources) Proton Pump Inhibitor Start: 04-28-2024 End: 04-28-2025 take 1 capsule by mouth once daily before mealtime omeprazole (PriLOSEC) [address] capsule Indications: Chest pain, unspecified type Take 1 capsule (40 mg) by mouth once daily in the morning. Take before meals. Do not crush or chew. 90 capsule 3 04/28/2024 02/02/2025 Discontinued (Therapy completed) predniSONE 20 mg oral tablet (4 sources) Start: 10-19-2023 End: 02-10-2024 predniSONE (DELTASONE) 20 mg tablet Indications: Strain of lumbar paraspinous muscle, subsequent encounter Take 1 tablet (20 mg total) by mouth See Admin Instructions. 1 tab 2x daily x3 days, 1 tab daily x3 days, 1/2 tablet daily x4 days 11 tablet 10/19/2023 02/10/2024 Discontinued (Therapy completed) Problems Active Problems Problem Classification Problem Date Documented Da te Episodic/Chronic Anxiety disorders (20 sources) Anxiety disorder, unspecified; Translations: [Mixed anxiety and depressive disorder] Onset: 11-14-2016 Resolved: 03-19-2018 11-14-2016 Chronic Cardiac dysrhythmias (20 sources) Ventricular premature beats; Translations: [Other premature beats] Onset: 04-22-2023 04-22-2023 Chronic Cardiac dysrhythmias (20 sources) Palpitations; Translations: [Palpitations] Onset: 04-15-2020 Episodic Conditions associated with dizziness or vertigo (1 source) Dizziness and giddiness; Translations: [DIZZINESS AND GIDDINESS] Onset: 01-10-2021 Episodic Disorders of lipid metabolism (2 sources) Mixed hyperlipidemia; Translations: [Mixed hyperlipidemia] Onset: 02-02-2025 02-02-2025 Chronic Esophageal disorders (14 sources) Gastro-esophageal reflux disease without esophagitis; Translations: [Gastroesophageal reflux disease] Onset: 09-16-2012 09-08-2022 Chronic Mood disorders (13 sources) Recurrent major depression in full remission; Translations: [Major depressive disorder, recurrent, in full remission] Onset: 07-02-2017 10-01-2023 Chronic Nonspecific chest pain (20 sources) Chest pain, unspecified; Translations: [Chest pain] Onset: 01-08-2021 Episodic Other aftercare (1 source) Other medical terminologist (current) drug therapy; Translations: [OTH PENITENTIARY CURRENT DRUG THERAPY] Onset: 01-10-2021 Episodic Other circulatory disease (1 source) Orthostatic hypotension; Translations: [ORTHOSTATIC HYPOTENSION] Onset: 01-10-2021 Episodic Other inflammatory condition of skin (1 source) Arthropathic psoriasis, unspecified; Translations: [Arthropathic psoriasis, unspecified] Onset: 03-23-2024 Chronic Other inflammatory condition of skin (1 source) Psoriasis, unspecified; Translations: [Psoriasis, unspecified] Onset: 02-26-2024 Chronic Other inflammatory condition of skin (10 sources) Psoriasis; Translations: [Psoriasis, unspecified] Onset: 02-10-2024 02-26-2024 Chronic Other lower respiratory disease (3 sources) Shortness of breath; Translations: [SHORTNESS OF BREATH] Onset: 01-10-2021 Episodic Other lower respiratory disease (13 sources) Dyspnea; Translations: [Shortness of breath] Onset: 04-22-2023 04-22-2023 Episodic Other nutritional; endocrine; and metabolic disorders (4 sources) Obesity; Translations: [Obesity, unspecified] Chronic Other nutritional; endocrine; and metabolic disorders (9 sources) Body mass index 30+ - obesity; Translations: [Body mass index (BMI) 38.0-38.9, adult] Onset: 04-22-2023 04-22-2023 Chronic Other nutritional; endocrine; and metabolic disorders (3 sources) Obesity caused by energy imbalance; Translations: [Class 1 obesity due to excess calories with serious comorbidity and body mass index (BMI) of 30.0 to 30.9 in adult] Onset: 05-12-2024 05-12-2024 Chronic Other nutritional; endocrine; and metabolic disorders (2 sources) Body mass index (BMI) 31.0-31.9, adult; Translations: [Body mass index (BMI) 31.0-31.9, adult] Onset: 08-04-2024 Chronic Other nutritional; endocrine; and metabolic disorders (2 sources) Body mass index (BMI) 38.0-38.9, adult; Translations: [Body mass index (BMI) 38.0-38.9, adult] Onset: 04-22-2023 Chronic Substance-related disorders (14 sources) Nicotine dependence, cigarettes, uncomplicated; Translations: [Smokes tobacco daily] Onset: 01-10-2021 04-28-2024 Chronic Comment on above: 1 ppd; Unclassified (1 source) Annual Exam Onset: 05-12-2024 Unclassified (1 source) back spasms Onset: 10-19-2023 Past or Other Problems Problem Classification Problem Date Documented Da te Episodic/Chronic Inflammatory conditions of male genital organs (1 source) Epididymitis; Translations: [EPIDIDYMITIS] Onset: 10-02-2020 Episodic Mood disorders (12 sources) Mood disorders Onset: 02-10-2024 Resolved: 05-12-2024 05-12-2024 Other male genital disorders (3 sources) Left testicular pain; Translations: [LEFT TESTICULAR PAIN] Onset: 09-30-2020 Episodic Other screening for suspected conditions (not mental disorders or infectious disease) (3 sources) Patient encounter status; Translations: [Encounter for screening for lipoid disorders] Onset: 08-04-2024 08-04-2024 Episodic Residual codes; unclassified (1 source) Tobacco use; Translations: [Tobacco use] Onset: 11-14-2016 Episodic Residual codes; unclassified (13 sources) Tobacco user; Translations: [Tobacco use] Onset: 11-14-2016 11-14-2016 Episodic Sprains and strains (2 sources) Strain of muscle, fascia and tendon of lower back, subsequent encounter; Translations: [Low back strain] Onset: 10-19-2023 10-19-2023 Episodic Unclassified (11 sources) Onset: 10-19-2023 10-19-2023 Results Test Name Value Interpretation Reference Range Facility Cardiac stress study Cydney gracia 05-31-[address], [address], [place] [address] Exercise Stress Test Patient Name: HARSHAD SARABIA Ordering Provider: [id number] CANDELARIA DOSHI Study Date: 05/31/2024 Reading Physician: [id number] Candelaria Doshi MD MRN/PID: [id number] Supervising Physician: [id number] Kemi De Jesus MD, [facility] Fellow: Date of /Age: 5 1980 / 43 years Fellow: Gender: M Nurse: Chris Linares RN Admission Status: Plumber Apprentice: NA Height: 182.88 cm Technologist: Weight: 102.51 kg Additional Staff: BSA: 2.24 m2 BMI: 30.65 kg/m2 Patient Location: Study Type: STRESS TEST ONLY Diagnosis/ICD: Chest pain, unspecified-R07.9 Indication: Chest Pain CPT Codes: Stress Test Interpretation-62907 ; Stress Test Supervision-[id number] Falls Risk: Low: Patient has low risk [...] METS. 7. Adequate level of stress achieved. [id number] Candelaria Doshi MD Electronically signed on 05/31/2024 at 5:44:05 PM Final Candelaria Almanzar MD - 05/31/[address], [address], [place] [address] Exercise Stress Test Patient Name: HARSHAD SARABIA Ordering Provider: [id number] CANDELARIA DOSHI Study Date: 05/31/2024 Reading Physician: [id number] Doshi MD MRN/PID: [id number] Supervising Physician: [id number] Kemi De Jesus MD, [facility] Fellow: Date of /Age: 5 1980 / 43 years Fellow: Gender: M Nurse: Chris Linares RN Admission Status: Plumber Apprentice: LILA Height: 182.88 cm Technologist: Weight: 102.51 kg Additional Staff: BSA: 2.24 m2 BMI: 30.65 kg/m2 Patient Location: Study Type: STRESS TEST ONLY Diagnosis/ICD: Chest pain, unspecified-R07.9 Indication: Chest Pain CPT Codes: Stress Test Interpretation-71523 ; Stress Test Supervision-[id number] Falls Risk: Low: Patient has low risk [...] METS. 7. Adequate level of stress achieved. [id number] Candelaria Doshi MD Electronically signed on 05/31/2024 at 5:44:05 PM Final [facility] Work Phone: [facility] Work Phone: STRESS TEST ONLYon STRESS TEST ONLY [address], [place] [address] Exercise Stress Test Patient Name: HARSHAD SARABIA Ordering Provider: [id number] DOSHI Study Date: 05/31/2024 Reading Physician: [id number] Doshi MD MRN/PID: [id number] Supervising Physician: [id number] Kemi De Jesus MD, [facility] Fellow: Date of /Age: 5 1980 / 43 years Fellow: Gender: Pete Nurse: Chris Linares RN Admission Status: Plumber Apprentice: LILA Height: 182.88 cm Technologist: Weight: 102.51 kg Additional Staff: BSA: 2.24 m2 BMI: 30.65 kg/m2 Patient Location: Study Type: STRESS TEST ONLY Diagnosis/ICD: Chest pain, unspecified-R07.9 Indication: Chest Pain CPT Codes: Stress Test Interpretation-66865 ; Stress Test Supervision-[id number] Falls Risk: Low: Patient has low risk [...] METS. 7. Adequate level of stress achieved. [id number] Candelaria Doshi MD Electronically signed on 05/31/2024 at 5:44:05 PM Final [facility] COMPREHENSIVE METABOLIC PANE Oscar 05-12-2024 Albumin [Mass/Vol] 4.3 g/dL Normal 3.2-5.3 [facility] Comment on above: Performed By: #### C JORJE, 52306-1 #### [facility] ([id number]) [address], [address] [place] [address] ALP [Catalytic activity/Vol] 60 U/L Normal 39-130 [facility] Comment on above: Performed By: #### C JORJE, 38891-1 #### [facility] ([id number]) [address], [address] [place] [address] ALT [Catalytic activity/Vol] 41 U/L High 0-40 [facility] Comment on above: Performed By: #### Zackary RECINOS, 31205-1 #### [facility] ([id number]) [address], [address] [place] [address] Anion gap [Moles/Vol] 8 mmol/L Normal 5-15 [facility] Comment on above: Performed By: #### Zackary RECINOS, 42200-2 #### [facility] ([id number]) [address], [address] [place] [address] AST [Catalytic activity/Vol] 28 U/L Normal 0-41 [facility] Comment on above: Performed By: #### Zackary RECINOS, 71142-6 #### [facility] ([id number]) [address], [address] [place] [address] Bilirubin [Mass/Vol] 0.4 mg/dL Normal 0.3-1.2 [facility] Comment on above: Performed By: #### Zackary RECINOS, 92149-9 #### [facility] ([id number]) [address], [address] [place] [address] Calcium [Mass/Vol] 9.5 mg/dL Normal 8.5-10.5 [facility] Comment on above: Performed By: #### Zackary RECINOS, 60230-8 #### [facility] ([id number]) [address], [address] [place] [address] Chloride [Moles/Vol] 103 mmol/L Normal 98-109 [facility] Comment on above: Performed By: #### Zackary RECINOS, 50168-5 #### [facility] ([id number]) [address], [address] [place] [address] CO2 [Moles/Vol] 26 mmol/L Normal 22-32 [facility] Comment on above: Performed By: #### Zackary RECINOS, 34288-5 #### [facility] ([id number]) [address], [address] [place] [address] Creatinine [Mass/Vol] 0.94 mg/dL Normal 0.60-1.30 [facility] Comment on above: Result Comment: METH OD TRACEABLE TO IDMS STANDARD Performed By: #### C JORJE, 09380-7 #### [facility] ([id number]) [address], [address] [place] [address] eGFR (CKD-EPI) NON-RACE DEPENDENT >90 Normal >59 [facility] Comment on above: Result Comment: Reported eGFR is based on the CKD-EPI 2020 equation that does not use a race coefficient. Performed By: #### Zackary RECINOS, 49311-2 #### [facility] ([id number]) [address] [place] [address] Glucose [Mass/Vol] 98 mg/dL Normal 65-99 [facility] Comment on above: Performed By: #### Zackary RECINOS, 80739-4 #### [facility] ([id number]) [address] [place] [address] Potassium [Moles/Vol] 4.2 mmol/L Normal 3.5-5.0 [facility] Comment on above: Performed By: #### Zackary RECINOS, 29252-9 #### [facility] ([id number]) [address] [place] [address] Protein [Mass/Vol] 7.2 g/dL Normal 6.0-8.0 [facility] Comment on above: Performed By: #### Zackary RECINOS, 99572-4 #### [facility] ([id number]) [address] [place] [address] Sodium [Moles/Vol] 137 mmol/L Normal 134-146 [facility] Comment on above: Performed By: #### Zackary RECINOS, 40410-1 #### [facility] ([id number]) [address] [place] [address] Urea nitrogen [Mass/Vol] 15 mg/dL Normal 5-23 [facility] Comment on above: Performed By: #### Zackary RECINOS, 53794-3 #### [facility] ([id number]) [address], [address] [place] [address] Lipid 1996 panelon 4 Cholesterol [Mass/Vol] 214 mg/dL High 150-200 [facility] Comment on above: Performed By: #### Zackary RECINOS, 27683-8 #### [facility] ([id number]) [address], [address] [place] [address] Cholesterol in HDL [Mass/Vol] 46 mg/dL Normal >39 [facility] Comment on above: Result Comment: HDL <40 mg/dL - High Risk HDL > or = 40mg/dL- Desirable HDL >60 mg/dL - Negative Risk Performed By: #### Zackary RECINOS, 99642-1 #### [facility] ([id number]) [address] [place] [address] Cholesterol in LDL [Mass/Vol] 135 mg/dL High <130 [facility] Comment on above: Result Comment: LDL <100 mg/dL - Desirable LDL >160 mg/dL - High Risk Performed By: #### Zackary RECINOS, 46653-2 #### [facility] ([id number]) [address], [address] [place] [address] Cholesterol in VLDL [Mass/Vol] 33 mg/dL High 0-30 [facility] Comment on above: Performed By: #### Zackary RECINOS, 94318-2 #### [facility] ([id number]) [address], [address] [place] [address] CHOLESTEROL:HDL 4.7 Normal 1.0-5.0 [facility] Comment on above: Performed By: #### C JORJE, 50099-7 #### [facility] ([id number]) [address] [place] [address] Triglyceride [Mass/Vol] 165 mg/dL High 27-150 [facility] Comment on above: Performed By: #### C JORJE, 91962-8 #### [facility] ([id number]) [address], [address] [place] [address] ECG 12 Leadon 04-28-2024 Normal sinus rhythm [facility] Work Phone: XR CHEST 2 VIEWSon XR CHEST 2 VIEWS XR - CHEST [...] by the interpreting Radiologist. Electronically Signed Rosalino uQesada M.D. 2024-03-28 18:36:17 Normal Not Available XR [...] report is generated using voice recognition reporting ([employer]). On occasion [employer] erroneously drops words from the report or [...] report is generated using voice recognition reporting ([employer]). On occasion [employer] erroneously drops words from the report or replaces the spoken word with similar sounding words. Please call with any questions/concerns regarding this report.* Dictated and transcribed 03/28/24/dpclementina This report has been electronically signed and approved by the interpreting radiologist. Electronically Signed Jackson Gandhi II, M.D. 2024-03-28 15:39:27 Normal Not Available Alanine aminotransferase [En zymatic activity/volume] in Serum or PlasmaOrdered By: Srinivas Moncada on 03-23-2024 ALT [Catalytic activity/Vol] 40 U/L Normal 7-52 [facility] Comment on above: Performed By: #### H BSAB, QUANT TB, HBSAG, HCV RX PCR, HBCAB #### [facility] , #### CRP, CMP, ESR, CBC #### [facility] [address] [place] [address] [place] Albumin [Mass/volume] in Ser um or Plasma by Bromocresol green (BCG) dye binding methoOrdered By: Srinivas Moncada on 03-23-2024 Albumin BCG dye [Mass/Vol] 4.3 g/dL 3.5-5.7 [facility] Alkaline phosphatase [Enzyma tic activity/volume] in Serum or PlasmaOrdered By: Srinivas Moncada on 03-23-2024 ALP [Catalytic activity/Vol] 75 U/L Normal 34-104 [facility] Comment on above: Performed By: #### H BSAB, QUANT TB, HBSAG, HCV RX PCR, HBCAB #### [facility] , #### CRP, CMP, ESR, CBC #### [facility] [address] [place] [id number] [place] Aspartate aminotransferase [ Enzymatic activity/volume] in Serum or PlasmaOrdered By: Srinivas Moncada on 03-23-2024 AST [Catalytic activity/Vol] 25 U/L Normal 13-39 [facility] Comment on above: Performed By: #### H BSAB, QUANT TB, HBSAG, HCV RX PCR, HBCAB #### [facility] , #### CRP, CMP, ESR, CBC #### [address] Automated basophil %Ordered By: Srinivas Louisa on 03-23-2024 Basophils/100 WBC (Bld) 0.9 % Normal . [facility] Comment on above: Performed By: #### H BSAB, QUANT TB, HBSAG, HCV RX PCR, HBCAB #### [facility] , #### CRP, CMP, ESR, CBC #### [address] Automated basophil countOrde red By: Srinivas Louisa on 03-23-2024 Basophils (Bld) [#/Vol] 0.1 10*3/uL Normal 0.0-0.2 [facility] Comment on above: Performed By: #### H BSAB, QUANT TB, HBSAG, HCV RX PCR, HBCAB #### [facility] , #### CRP, CMP, ESR, CBC #### [address] Automated blood monocyte cou ntOrdered By: Srinivas Moncada on 03-23-2024 Monocytes (Bld) [#/Vol] 0.8 10*3/uL Normal 0.0-0.8 [facility] Comment on above: Performed By: #### H BSAB, QUANT TB, HBSAG, HCV RX PCR, HBCAB #### [facility] , #### CRP, CMP, ESR, CBC #### [address] Automated eosinophil %Ordere d By: Srinivassushma Moncada on 03-23-2024 Eosinophils/100 WBC (Bld) 6.5 % Normal . [facility] Comment on above: Performed By: #### H BSAB, QUANT TB, HBSAG, HCV RX PCR, HBCAB #### [facility] , #### CRP, CMP, ESR, CBC #### [address] Automated eosinophil countOr dered By: Srinivas Moncada on 03-23-2024 Eosinophils (Bld) [#/Vol] 0.6 10*3/uL High 0.0-0.45 [facility] Comment on above: Performed By: #### H BSAB, QUANT TB, HBSAG, HCV RX PCR, HBCAB #### [facility] , #### CRP, CMP, ESR, CBC #### [facility] [address] [place] [address] Automated monocyte %Ordered By: Srinivas Louisa on 03-23-2024 Monocytes/100 WBC (Bld) 8.6 % Normal . [facility] Comment on above: Performed By: #### H BSAB, QUANT TB, HBSAG, HCV RX PCR, HBCAB #### [facility] , #### CRP, CMP, ESR, CBC #### [address] Automated neutrophil %Ordere d By: Srinivas Louisa on 03-23-2024 Neutrophils/100 WBC (Bld) 50.8 % Normal . [facility] Comment on above: Performed By: #### H BSAB, QUANT TB, HBSAG, HCV RX PCR, HBCAB #### [facility] , #### CRP, CMP, ESR, CBC #### [address] Bilirubin.total [Mass/volume ] in Serum or PlasmaOrdered By: Srinivas Moncada on 03-23-2024 Bilirubin [Mass/Vol] 0.5 mg/dL Normal 0.3-1.0 [facility] Comment on above: Performed By: #### H BSAB, QUANT TB, HBSAG, HCV RX PCR, HBCAB #### [facility] , #### CRP, CMP, ESR, CBC #### [address] C reactive protein [Mass/vol ume] in Serum or PlasmaOrdered By: Srinivas Moncada on 03-23-2024 CRP [Mass/Vol] 1.1 mg/dL High 0.0-0.5 [facility] C-Reactive Proteinon 024 C-Reactive Protein 1.1 mg/dL High 0.0-0.5 [facility] Comment on above: Result Comment: PERF ORMED BY: [place] [address] PATHOLOGIST [employer]OCIATE CHIQUI TIJERINA M.D. Performed By: #### H BSAB, QUANT TB, HBSAG, HCV RX PCR, HBCAB #### [facility] , #### CRP, CMP, ESR, CBC #### [facility] [address] [place] [address] [place] Calcium [Mass/volume] in Ser um or PlasmaOrdered By: Srinivas Moncada on 03-23-2024 Calcium [Mass/Vol] 9.5 mg/dL Normal 8.6-10.3 [facility] Comment on above: Performed By: #### H BSAB, QUANT TB, HBSAG, HCV RX PCR, HBCAB #### [facility] , #### CRP, CMP, ESR, CBC #### [facility] [address] [place] [address] [place] Carbon dioxide, total [Moles /volume] in Serum or PlasmaOrdered By: Srinivas Moncada on 03-23-2024 CO2 [Moles/Vol] 27.5 mmol/L Normal 21.0-31.0 [facility] Comment on above: Performed By: #### H BSAB, QUANT TB, HBSAG, HCV RX PCR, HBCAB #### [facility] , #### CRP, CMP, ESR, CBC #### [facility] [address] [place] [address] [place] Chloride [Moles/volume] in S preeti or PlasmaOrdered By: Srinivas Moncada on 03-23-2024 Chloride [Moles/Vol] 105 mmol/L Normal 98-107 [facility] Comment on above: Performed By: #### H BSAB, QUANT TB, HBSAG, HCV RX PCR, HBCAB #### [facility] , #### CRP, CMP, ESR, CBC #### [address] Complete Blood Count Auto Di ffon 03-23-2024 Mean Corpuscular HGB Conc 34.4 g/dL Normal 32.5-35.6 [facility] Comment on above: Performed By: #### H BSAB, QUANT TB, HBSAG, HCV RX PCR, HBCAB #### [facility] , #### CRP, CMP, ESR, CBC #### [address] NRBC% 0.2 /100{WBC} Normal 0-0.5 [facility] Comment on above: Performed By: #### H BSAB, QUANT TB, HBSAG, HCV RX PCR, HBCAB #### [facility] , #### CRP, CMP, ESR, CBC #### [address] Comprehensive Metabolic Pane oscar 03-23-2024 Albumin [Mass/Vol] 4.3 g/dL Normal 3.5-5.7 [facility] Comment on above: Performed By: #### H BSAB, QUANT TB, HBSAG, HCV RX PCR, HBCAB #### [facility] , #### CRP, CMP, ESR, CBC #### [address] GFR/1.73 sq M.predicted MDRD (S/P/Bld) [Vol rate/Area] mL/min/{1.73_m2} Normal [facility] Comment on above: Performed By: #### H BSAB, QUANT TB, HBSAG, HCV RX PCR, HBCAB #### [facility] , #### CRP, CMP, ESR, CBC #### [address] Creatinine [Mass/volume] in Serum or PlasmaOrdered By: Srinivas Moncada on 03-23-2024 Creatinine [Mass/Vol] 0.98 mg/dL Normal 0.70-1.30 [facility] Comment on above: Performed By: #### H BSAB, QUANT TB, HBSAG, HCV RX PCR, HBCAB #### [facility] , #### CRP, CMP, ESR, CBC #### [address] Erythrocyte Sedimentation Ra wilton 03-23-2024 ESR (Bld) [Velocity] 20 mm/h High 0-14 [facility] Comment on above: Result Comment: PERF ORMED BY: [place] [address] PATHOLOGIST [employer] ASSOCIATE CHIQUI TIJERINA M.D. Performed By: #### H BSAB, QUANT TB, HBSAG, HCV RX PCR, HBCAB #### [facility] , #### CRP, CMP, ESR, CBC #### [address] Erythrocyte distribution wid th [Ratio] by Automated countOrdered By: Srinivas Moncada on 03-23-2024 Erythrocyte distribution width (RBC) [Ratio] 13.4 % Normal 12.0-14.8 [facility] Comment on above: Performed By: #### H BSAB, QUANT TB, HBSAG, HCV RX PCR, HBCAB #### [facility] , #### CRP, CMP, ESR, CBC #### [address] Erythrocyte sedimentation ra te by Photometric methodOrdered By: Srinivas Moncada on 03-23-2024 ESR Photometric method (Bld) [Velocity] 20 mm/hr High 0-14 [facility] Erythrocytes [#/volume] in B lood by Automated countOrdered By: Srinivas Moncada on 03-23-2024 RBC (Bld) [#/Vol] 4.96 10*6/uL Normal 3.90-5.60 [facility] Comment on above: Performed By: #### H BSAB, QUANT TB, HBSAG, HCV RX PCR, HBCAB #### [facility] , #### CRP, CMP, ESR, CBC #### [address] Glucose [Mass/volume] in Ser um or PlasmaOrdered By: Srinivas Moncada on 03-23-2024 Glucose [Mass/Vol] 106 mg/dL High 70-100 [facility] Comment on above: ADA recommended refe rence rangeRandom Glucose Reference Range is dependent on time and content of last meal. Glucose of more than 200 mg/dL in a nonstressed, ambulatory subject supports the diagnosis of Diabetes Mellitus. Result Comment: [place] om Glucose Reference Range is dependent on time and content of last meal. Glucose of more than 200 mg/dL in a nonstressed, ambulatory subject supports the diagnosis of Diabetes Mellitus. ADA recommended reference range Performed By: #### H BSAB, QUANT TB, HBSAG, HCV RX PCR, HBCAB #### [facility] , #### CRP, CMP, ESR, CBC #### [address] Hematocrit [Volume Fraction] of Blood by Automated countOrdered By: Srinivas Moncada on 03-23-2024 Hematocrit (Bld) [Volume fraction] 44.0 % Normal 38.8-50.0 [facility] Comment on above: Performed By: #### H BSAB, QUANT TB, HBSAG, HCV RX PCR, HBCAB #### [facility] , #### CRP, CMP, ESR, CBC #### [address] Hemoglobin [Mass/volume] in BloodOrdered By: Srinivas Moncada on 03-23-2024 Hemoglobin (Bld) [Mass/Vol] 15.1 g/dL Normal 13.0-17.0 [facility] Comment on above: Performed By: #### H BSAB, QUANT TB, HBSAG, HCV RX PCR, HBCAB #### [facility] , #### CRP, CMP, ESR, CBC #### [address] Hep C Ab wRfx to Qnt PCRon 1 Hepatitis C Virus Antibody Non-Reactive Normal Non Reactive [facility] Comment on above: Performed By: #### H BSAB, QUANT TB, HBSAG, HCV RX PCR, HBCAB #### [facility] , #### CRP, CMP, ESR, CBC #### [address] Interpretation Hepatitis C Comment Normal . [facility] Comment on above: Result Comment: Not infected with HCV unless early or acute infection is suspected (which may be delayed in an immunocompromised individual), or other evidence exists to indicate HCV infection. Performed By: #### H BSAB, QUANT TB, HBSAG, HCV RX PCR, HBCAB #### [facility] , #### CRP, CMP, ESR, CBC #### [address] Hepatitis B Core Antibodyon 03-23-2024 Hepatitis B Core Antibody Negative Normal Negative [facility] Comment on above: Result Comment: Perf ormed at: - [facility] [address] [id number] Top Former: Denny Walton PhD, Phone: [phone] Performed By: #### H BSAB, QUANT TB, HBSAG, HCV RX PCR, HBCAB #### [facility] , #### CRP, CMP, ESR, CBC #### [address] Hepatitis B Surface Antibody on 03-23-2024 Hepatitis B Surface Antibody Non-Reactive Normal . [facility] Comment on above: Result Comment: [...] , #### CRP, CMP, ESR, CBC #### [facility] [address] [place] [address] Hepatitis B Surface Antigeno n 03-23-2024 HBsAg Screen Negative Normal Negative [facility] Comment on above: Result Comment: PERF ORMED BY: [place] [address] PATHOLOGIST [employer] ASSOCIATE CHIQUI TIJERINA M.D. Performed By: #### H BSAB, QUANT TB, HBSAG, HCV RX PCR, HBCAB #### [facility] , #### CRP, CMP, ESR, CBC #### [facility] [address] [place] [address] Leukocytes [#/volume] correc meenakshi for nucleated erythrocytes in Blood by Automated counOrdered By: Srinivas Moncada on 03-23-2024 WBC corrected for nucl RBC Auto (Bld) [#/Vol] 8.7 10*3/uL 4.1-10.5 [facility] Leukocytes [#/volume] in Blo od by Automated countOrdered By: Srinivas Moncada on 03-23-2024 WBC (Bld) [#/Vol] 8.7 10*3/uL Normal 4.1-10.5 [facility] Comment on above: Performed By: #### H BSAB, QUANT TB, HBSAG, HCV RX PCR, HBCAB #### [facility] , #### CRP, CMP, ESR, CBC #### [address] Lymphocytes [#/volume] in Bl ood by Automated countOrdered By: Srinivas Moncada on 03-23-2024 Lymphocytes (Bld) [#/Vol] 2.9 10*3/uL Normal 1.00-4.8 [facility] Comment on above: Performed By: #### H BSAB, QUANT TB, HBSAG, HCV RX PCR, HBCAB #### [facility] , #### CRP, CMP, ESR, CBC #### [place] [address] [place] Lymphocytes/100 leukocytes i n Blood by Automated countOrdered By: Srinivas Moncada on 03-23-2024 Lymphocytes/100 WBC (Bld) 33.2 % Normal . [facility] Comment on above: Performed By: #### H BSAB, QUANT TB, HBSAG, HCV RX PCR, HBCAB #### [facility] , #### CRP, CMP, ESR, CBC #### [facility] [address] MCH [Entitic mass] by Automa meenakshi countOrdered By: Srinivas Moncada on 03-23-2024 MCH (RBC) [Entitic mass] 30.5 pg Normal 27.5-35.2 [facility] Comment on above: Performed By: #### H BSAB, QUANT TB, HBSAG, HCV RX PCR, HBCAB #### [facility] , #### CRP, CMP, ESR, CBC #### [facility] [address] [place] [address] MCHC Auto (RBC) [Mass/Vol]Or dered By: Srinivas Moncada on 03-23-2024 MCHC (RBC) [Mass/Vol] 34.4 g/dL 32.5-35.6 [facility] MCV [Entitic volume] by Auto mated countOrdered By: Srinivas Moncada on 03-23-2024 MCV (RBC) [Entitic vol] 88.6 fL Normal 83.5-101 F [facility] Comment on above: Performed By: #### H BSAB, QUANT TB, HBSAG, HCV RX PCR, HBCAB #### [facility] , #### CRP, CMP, ESR, CBC #### [facility] [address] [place] [address] Neutrophils [#/volume] in Bl ood by Automated countOrdered By: Srinivas Castrorow on 03-23-2024 Neutrophils (Bld) [#/Vol] 4.4 10*3/uL Normal 1.8-7.7 [facility] Comment on above: Performed By: #### H BSAB, QUANT TB, HBSAG, HCV RX PCR, HBCAB #### [facility] , #### CRP, CMP, ESR, CBC #### [facility] [address] [place] [address] No Panel InformationOrdered By: Srinivas Moncada on 03-23-2024 Estimated GFR (CKD-EPI) > 60.0 mL/Min [facility] Creatinine Clearance (Chem N/A [facility] Nucleated erythrocytes [Pres ence] in Blood by Automated countOrdered By: Srinivas Moncada on 03-23-2024 Nucleated RBC Auto Ql (Bld) 0.2 /100{WBC} 0-0.5 [facility] Platelet mean volume [Entiti c volume] in Blood by Automated countOrdered By: Srinivas Moncada on 03-23-2024 Platelet mean volume (Bld) [Entitic vol] 11.5 fL High 6.6-10.1 [facility] Comment on above: Performed By: #### H BSAB, QUANT TB, HBSAG, HCV RX PCR, HBCAB #### [facility] , #### CRP, CMP, ESR, CBC #### [address] Platelets [#/volume] in Bloo d by Automated countOrdered By: Srinivas Moncada on 03-23-2024 Platelets (Bld) [#/Vol] 190 10*3/uL Normal 150-450 [facility] Comment on above: Performed By: #### H BSAB, QUANT TB, HBSAG, HCV RX PCR, HBCAB #### [facility] , #### CRP, CMP, ESR, CBC #### [facility] [address] [place] [address] Potassium [Moles/volume] in Serum or PlasmaOrdered By: Srinivas Moncada on 03-23-2024 Potassium [Moles/Vol] 4.3 mmol/L Normal 3.5-5.1 [facility] Comment on above: Performed By: #### H BSAB, QUANT TB, HBSAG, HCV RX PCR, HBCAB #### [facility] , #### CRP, CMP, ESR, CBC #### [facility] [address] Protein [Mass/volume] in Ser um or PlasmaOrdered By: Srinivas Moncada on 03-23-2024 Protein [Mass/Vol] 6.6 g/dL Normal 6.4-8.9 [facility] Comment on above: Performed By: #### H BSAB, QUANT TB, HBSAG, HCV RX PCR, HBCAB #### [facility] , #### CRP, CMP, ESR, CBC #### [facility] [address] QuantiFERON TB Goldon 2023 QFTB Criteria Comment Normal . [facility] Comment on above: [...] , #### CRP, CMP, ESR, CBC #### [facility] [address] [place] [id number] [facility] Quant TB Ag Value 0.03 Normal . [facility] Comment on above: Performed By: #### H BSAB, QUANT TB, HBSAG, HCV RX PCR, HBCAB #### [facility] , #### CRP, CMP, ESR, CBC #### [facility] [address] [place] [id number] [facility] Quant TB Gold Plus Negative Normal Negative [facility] Comment on above: Result Comment: [...] interferon gamma. Chemiluminescence immunoassay methodology Performed at: [facility] [employer] [id number] Top Former: Denny Walton PhD, Phone: [phone] PERFORMED BY: [place] [address] PATHOLOGIST [employer] ASSOCIATE CHIQUI TIJERINA M.D. Performed By: #### H BSAB, QUANT TB, HBSAG, HCV RX PCR, HBCAB #### [facility] , #### CRP, CMP, ESR, CBC #### [address] Quant TB2 Ag Value 0.01 Normal . [facility] Comment on above: Performed By: #### H BSAB, QUANT TB, HBSAG, HCV RX PCR, HBCAB #### [facility] , #### CRP, CMP, ESR, CBC #### [address] Quantiferon Nil Value 0.00 Normal . [facility] Comment on above: Performed By: #### H BSAB, QUANT TB, HBSAG, HCV RX PCR, HBCAB #### [facility] , #### CRP, CMP, ESR, CBC #### [address] Quantiferon TB Mitogen >10.00 Normal . [facility] Comment on above: Performed By: #### H BSAB, QUANT TB, HBSAG, HCV RX PCR, HBCAB #### [facility] , #### CRP, CMP, ESR, CBC #### [address] Serum globulin measurement b y calculation (mass/volume)Ordered By: Srinivas Moncada on 03-23-2024 Globulin (S) [Mass/Vol] 2.3 g/dL Normal [facility] Comment on above: Performed By: #### H BSAB, QUANT TB, HBSAG, HCV RX PCR, HBCAB #### [facility] , #### CRP, CMP, ESR, CBC #### [address] Serum or plasma albumin/glob ulin mass ratioOrdered By: Srinivassushma Moncada on 03-23-2024 Albumin/Globulin [Mass ratio] 1.9 {ratio} Normal [facility] Comment on above: Performed By: #### H BSAB, QUANT TB, HBSAG, HCV RX PCR, HBCAB #### [facility] , #### CRP, CMP, ESR, CBC #### [address] Serum or plasma anion gap de terminationOrdered By: Srinivas Moncada on 03-23-2024 Anion gap [Moles/Vol] 9.8 mmol/L Normal 6.0-15.0 [facility] Comment on above: Performed By: #### H BSAB, QUANT TB, HBSAG, HCV RX PCR, HBCAB #### [facility] , #### CRP, CMP, ESR, CBC #### [address] Sodium [Moles/volume] in Ser um or PlasmaOrdered By: Srinivas Moncada on 03-23-2024 Sodium [Moles/Vol] 138 mmol/L Normal 136-145 [facility] Comment on above: Performed By: #### H BSAB, QUANT TB, HBSAG, HCV RX PCR, HBCAB #### [facility] , #### CRP, CMP, ESR, CBC #### [facility] [address] [place] [address] Urea nitrogen [Mass/volume] in Serum or PlasmaOrdered By: Srinivas Moncada on 03-23-2024 Urea nitrogen [Mass/Vol] 14 mg/dL Normal 7-25 [facility] Comment on above: Performed By: #### H BSAB, QUANT TB, HBSAG, HCV RX PCR, HBCAB #### [facility] , #### CRP, CMP, ESR, CBC #### [facility] [address] [place] [id number] [facility] Office Visit (Cardiology)on 07-28-2022 Follow-up visit Diagnoses/Problems [...] Weight Tips; Status:Complete - Retrospective Authorization; Done: [id number] Some eating tips that can help you lose weight.; Status:Complete - Retrospective Authorization; Done: [id number] SocHx: Current every day smoker Tobacco Use Screening; Status:Complete; Done: [id number] You need to quit smoking.; Status:Complete - Retrospective Authorization; Done: [id number] You need to stop smoking. Though it is not easy, more than half of all adult smokers have quit. We encourage you to write down all the reasons you should quit smoking and set a quit date for yourself. Ask us how we can help. You may also call 3-215-XOCV-NOW for free resources and assistance.; Status:Complete - Retrospective Authorization; Done: [id number] Patient Instructions Please bring all medicines, vitamins, [...] 200 MG Oral TabletTAKE 2 TABLET Daily [place] 3 CAP[place]KE 2 CAPSULE Daily Perphenazine 2 [...] Recorded: 28Jul2022 01:10PM Heart Rate82, L Radial [id number], LUE, Sitting Lopez (more content not included)... Normal [email or web address] Tobacco Screening.on 023 Adult depression screening assessment No [facility] 250 DO Work Phone: Fall risk assessment a) No falls within the last year [facility] 250 DO Work Phone: Tobacco use status [facility] a) Yes [facility] 250 DO Work Phone: Tobacco Screening. Yes [facility] 250 DO Work Phone: COMPREHENSIVE METABOLIC PANE Oscar 08-25-2021 Albumin [Mass/Vol] 4.3 g/dL Normal 3.6-5.1 [facility] Comment on above: Performed By: #### 4 28, [address]326, 3615 #### [facility] [address], [address] [place] [phone] Consumer Services Consultant: David Granados MD Albumin/Globulin [Mass ratio] 1.4 {ratio} Normal 1.0-2.5 [facility] Comment on above: Performed By: #### 4 81, 22829, 8170 #### [facility] [address], [address] [place] [phone] Consumer Services Consultant: David Granados MD ALP [Catalytic activity/Vol] 60 U/L Normal 36-130 [facility] Comment on above: Performed By: #### 4 96, 45851, 7600 #### [facility] of [place] [address] Consumer Services Consultant: David Granados MD ALT [Catalytic activity/Vol] 49 U/L High 9-46 [facility] Comment on above: Performed By: #### 4 96, 73979, 7600 #### [facility] of [address], [address] [place] [address] Consumer Services Consultant: David Granados MD AST [Catalytic activity/Vol] 24 U/L Normal 10-40 [facility] Comment on above: Performed By: #### 4 96, 73212, 7600 #### [facility] of [place] [address] Consumer Services Consultant: David Granados MD Bilirubin [Mass/Vol] 0.5 mg/dL Normal 0.2-1.2 [facility] Comment on above: Performed By: #### 4 96, 32097, 0 #### [facility] of [place] [address] Consumer Services Consultant: David Granados MD BUN/CREATININE RATIO NOT APPLICABLE Normal 6-22 [facility] Comment on above: Performed By: #### 4 96, 13511, 7600 #### [facility] of [place] [address] Consumer Services Consultant: David Granados MD Calcium [Mass/Vol] 9.7 mg/dL Normal 8.6-10.3 [facility] Comment on above: Performed By: #### 4 96, 75529, 7600 #### [facility] of [place] [address] Consumer Services Consultant: David Granados MD Chloride [Moles/Vol] 104 mmol/L Normal 98-110 [facility] Comment on above: Performed By: #### 4 96, 24025, 7600 #### [facility] of [address], [address] [place] [address] Consumer Services Consultant: David Granados MD CO2 [Moles/Vol] 28 mmol/L Normal 20-32 [facility] Comment on above: Performed By: #### 4 96, 97034, 7600 #### [facility] of [address], [address] [place] [address] Consumer Services Consultant: David Granados MD Creatinine [Mass/Vol] 1.01 mg/dL Normal 0.60-1.35 [facility] Comment on above: Performed By: #### 4 96, , 7600 #### [facility] of [address], [address] [place] [address] Consumer Services Consultant: David Granados MD eGFR NON-AFR. [place]IZ[place] 91 mL/min/1.73m2 Normal > OR = 60 [facility] Comment on above: Performed By: #### 4 96, , 0 #### [facility] of [address], [address] [place] [address] Consumer Services Consultant: David Granados MD GFR/1.73 sq M.predicted among blacks MDRD (S/P/Bld) [Vol rate/Area] 106 mL/min/{1.73_m2} Normal > OR = 60 [facility] Comment on above: Performed By: #### 4 96, 41225, 0 #### [facility] [address], [address] [place] [address] Consumer Services Consultant: David Granados MD Globulin (S) [Mass/Vol] 3.0 g/dL Normal 1.9-3.7 [facility] Comment on above: Performed By: #### 4 96, 48591, 7600 #### [facility] of [place] [address] Consumer Services Consultant: David Granados MD Glucose [Mass/Vol] 96 mg/dL Normal 65-99 [facility] Comment on above: Result Comment: Fasting reference interval Performed By: #### 4 96, 23607, 7600 #### [facility] of [address], [address] [place] [address] Consumer Services Consultant: David Granados MD Potassium [Moles/Vol] 4.5 mmol/L Normal 3.5-5.3 [facility] Comment on above: Performed By: #### 4 96, 38561, 7600 #### [facility] [address], [address] [place] [address] Consumer Services Consultant: David Granados MD Protein [Mass/Vol] 7.3 g/dL Normal 6.1-8.1 [facility] Comment on above: Performed By: #### 4 96, 11323, 7600 #### [facility] [place] [address] Consumer Services Consultant: David Granados MD Sodium [Moles/Vol] 138 mmol/L Normal 135-146 [facility] Comment on above: Performed By: #### 4 96, 00436, 7600 #### [facility] [place] [address] Consumer Services Consultant: David Granados MD Urea nitrogen [Mass/Vol] 12 mg/dL Normal 7-25 [facility] Comment on above: Performed By: #### 4 96, 96373, 7600 #### [facility] [place] [address] Consumer Services Consultant: David Granados MD HEMOGLOBIN A1con 08-25-2021 HEMOGLOBIN [...] for children. Performed By: #### 4 96, 76773, 7600 #### [facility] [address], [address] [place] [address] Consumer Services Consultant: David Granados MD LIPID PANEL, [facility] [place] 0 Cholesterol [Mass/Vol] 249 mg/dL High <200 [facility] Comment on above: Order Comment: FASTI NG:YES FASTING: YES Performed By: #### 4 96, 64842, 7600 #### [facility] [address], [address] [place] [address] Consumer Services Consultant: David Granados MD Cholesterol in HDL [Mass/Vol] 44 mg/dL Normal > OR = 40 [facility] Comment on above: Order Comment: FASTI NG:YES FASTING: YES Performed By: #### 4 96, 98634, 7600 #### [facility] [place] [address] Consumer Services Consultant: David Granados MD Cholesterol in LDL [Mass/Vol] 175 mg/dL High [facility] Comment on above: Order Comment: FASTI NG:YES FASTING: YES Result Comment: Refe rence range: <100 Desirable range <100 mg/dL for primary prevention; <70 mg/dL for patients with CHD or diabetic patients with > or = 2 CHD risk factors. LDL-C is now calculated using the Marcos-Inocencio calculation, which is a validated novel method providing better accuracy than the Friedewald equation in the estimation of LDL-C. Marcos GRULLON et al. JON. 2013;310(19): 7795-3280 (http://education.Wickr.Ezuza/faq/PRA676) Performed By: #### 4 96, 59479, 7600 #### [facility] [address], [address] [place] [address] Consumer Services Consultant: David Granados MD Cholesterol.total/Lori sterol in HDL [Mass ratio] 5.7 {ratio} High <5.0 [facility] Comment on above: Order Comment: FASTI NG:YES FASTING: YES Performed By: #### 4 96, 55562, 7600 #### [facility] [address], [address] [place] [address] Consumer Services Consultant: David Granados MD NON HDL CHOLESTEROL 205 mg/dL (calc) High <130 [facility] Comment on above: Order Comment: FASTI NG:YES FASTING: YES Result Comment: For patients with diabetes plus 1 major ASCVD risk factor, treating to a non-HDL-C goal of <100 mg/dL (LDL-C of <70 mg/dL) is considered a therapeutic option. Performed By: #### 4 96, 42647, 7600 #### [facility] [address], [address] [place] [address] Consumer Services Consultant: David Granados MD Triglyceride [Mass/Vol] 152 mg/dL High <150 Q [facility] Comment on above: Order Comment: FASTI NG:YES FASTING: YES Performed By: #### 4 96, 64377, 7600 #### [facility] [address], [address] [place] [address] Consumer Services Consultant: David Granados MD Tobacco Screening.on 022 Tobacco use status CPHS a) Yes [facility] [address] DO Work Phone: BNPon 01-08-2021 Natriuretic peptide B (Bld) [Mass/Vol] 65.0 pg/mL Normal <=450.0 [facility] Comment on above: Performed By: #### P T, DDIM, PTT #### [facility] [address] [place] [address] Clint Sisi CBC AUTO DIFFon 01-08-2021 BASO # 0.1 103/ul Normal 0.0-0.1 [facility] Comment on above: Performed By: #### C BC #### [facility] [address] [place], [place] [address] Clint Sisi Basophils/100 WBC (Bld) 0.9 % Normal 0.2-2.0 [facility] Comment on above: Performed By: #### C BC #### [facility] [address] [place] [address] Clint Sisi EO # 0.3 103/ul Normal 0.0-0.7 [facility] Comment on above: Performed By: #### C BC #### [facility] [address] [place], [place] [id number] Clint Sisi Eosinophils/100 WBC (Bld) 3.6 % Normal 0.9-7.0 [facility] Comment on above: Performed By: #### C BC #### [facility] [address] [place], [place] [id number] Clint Sisi Erythrocyte distribution width (RBC) [Ratio] 13.0 % Normal 11.0-15.0 [facility] Comment on above: Performed By: #### C BC #### [facility] [address] [place], [place] [id number] Clint Sisi Hematocrit (Bld) [Volume fraction] 47.9 % Normal 42.0-54.0 [facility] Comment on above: Performed By: #### C BC #### [facility] [address] [place] [address] Clint Sisi Hemoglobin (Bld) [Mass/Vol] 16.1 g/dL Normal 14.0-18.0 [facility] Comment on above: Performed By: #### C BC #### [facility] [address] [place] [address] Clint Sisi IG # 0.04 10e3/ul Critically high 0.00-0.03 [facility] Comment on above: Performed By: #### C BC #### [facility] [address] [place] [address] Clint Sisi IG % 0.5 % Normal 0.0-0.5 [facility] Comment on above: Performed By: #### C BC #### [facility] [address] [place] [address] Clint Sisi LYMPH # 3.3 103/ul Normal 1.2-3.8 [facility] Comment on above: Performed By: #### C BC #### [facility] [address] [place], [place] [id number] Clint Sisi Lymphocytes/100 WBC (Bld) 38.0 % Normal 20.5-60.0 [facility] Comment on above: Performed By: #### C BC #### [facility] [address] [place] [address] Clint Laird MANUAL DIFF REQ NO Normal [facility] Comment on above: Performed By: #### C BC #### [facility] [address] [place] [address] Clint Laird MCH (RBC) [Entitic mass] 29.8 pg Normal 25.9-34.0 [facility] Comment on above: Performed By: #### C BC #### [facility] [address] [place] [address] Clint Laird MCHC (RBC) [Mass/Vol] 33.6 g/dL Normal 29.9-35.2 [facility] Comment on above: Performed By: #### C BC #### [facility] [address] [place] [address] Clint Laird MCV (RBC) [Entitic vol] 88.7 fL Normal 80.0-94.0 [facility] Comment on above: Performed By: #### C BC #### [facility] [address] [place] [address] Clint Laird MONO # 0.8 103/ul Normal 0.3-0.8 [facility] Comment on above: Performed By: #### C BC #### [facility] [address] [place] [address] Clint Laird Monocytes/100 WBC (Bld) 8.7 % Normal 1.7-12.0 [facility] Comment on above: Performed By: #### C BC #### [facility] [address] [place] [address] Clint Laird NEUT # 4.2 103/ul Normal 1.4-6.5 [facility] Comment on above: Performed By: #### C BC #### [facility] [address] [place] [address] Clint Laird Neutrophils/100 WBC (Bld) 48.3 % Normal 43.0-75.0 [facility] Comment on above: Performed By: #### C BC #### [facility] [address] [place] [address] Clintcolin Laird Platelet mean volume (Bld) [Entitic vol] 12.0 fL Normal 9.5-13.5 [facility] Comment on above: Performed By: #### C BC #### [facility] [address] [place] [address] Clint Laird PLT 218 103/ul Normal 150-450 [facility] Comment on above: Performed By: #### C BC #### [facility] [address] [place], [place] [id number] Clint Laird RBC 5.40 106/ul Normal 4.70-6.10 [facility] Comment on above: Performed By: #### C BC #### [facility] [address] [place], [place] [id number] Clint Laird WBC 8.6 103/ul Normal 4.0-11.0 [facility] Comment on above: Performed By: #### C BC #### [facility] [address] [place], [place] [id number] Clint Laird D-DIMERon 01-08-2021 D-DIMER 0.19 mg/L FEU Normal 0.19-0.50 [facility] Comment on above: Performed By: #### D DIM #### [facility] [address] [place], [place] [id number] Clint Laird D-DIMER COMMENTS SEE BELOW Normal [facility] Comment on above: Result [...] hospitalization. Performed By: #### D DIM #### [facility] [address] [place] [address] Clint Laird PROF CHEM 8 (BAS METB)on Anion gap [Moles/Vol] 12.9 mmol/L Normal [facility] Comment on above: Performed By: #### B RECYCLING COORDINATOR, HSTROPN, BMP, TSH #### [facility] [address] [place] [address] Clint Sisi Calcium [Mass/Vol] 8.9 mg/dL Normal 8.4-10.2 [facility] Comment on above: Performed By: #### B RECYCLING COORDINATOR, HSTROPN, BMP, TSH #### [facility] [address] [place] [address] Clint Sisi Chloride [Moles/Vol] 105 mmol/L Normal 98-107 [facility] Comment on above: Performed By: #### B RECYCLING COORDINATOR, HSTROPN, BMP, TSH #### [facility] [address] [place] [address] Clint Sisi CO2 [Moles/Vol] 25.9 mmol/L Normal 22.0-30.0 [facility] Comment on above: Performed By: #### B RECYCLING COORDINATOR, HSTROPN, BMP, TSH #### [facility] [address] [place] [address] Clint Sisi Creatinine [Mass/Vol] 1.04 mg/dL Normal 0.66-1.25 [facility] Comment on above: Performed By: #### B RECYCLING COORDINATOR, HSTROPN, BMP, TSH #### [facility] [address] [place] [address] Clint Sisi EGFR-AF [place] >60 Normal >=60 [facility] Comment on above: Performed By: #### B RECYCLING COORDINATOR, HSTROPN, BMP, TSH #### [facility] [address] [place] [address] Clint Sisi EGFR-NON AF [place]IZ[place] >60 Normal >=60 [facility] Comment on above: Performed By: #### B RECYCLING COORDINATOR, HSTROPN, BMP, TSH #### [facility] [address] [place] [address] Clint Sisi Glucose [Mass/Vol] 131 mg/dL Critically high 74-106 [facility] Comment on above: Performed By: #### B RECYCLING COORDINATOR, HSTROPN, BMP, TSH #### [facility] [address] [place], [place] [address] Clint Sisi Potassium [Moles/Vol] 3.8 mmol/L Normal 3.4-5.0 [facility] Comment on above: Performed By: #### B RECYCLING COORDINATOR, HSTROPN, BMP, TSH #### [facility] [address] [place], [place] [address] Clint Sisi Sodium [Moles/Vol] 140 mmol/L Normal 137-145 [facility] Comment on above: Performed By: #### B RECYCLING COORDINATOR, HSTROPN, BMP, TSH #### [facility] [address] [place] [id number] Clint Sisi Urea nitrogen [Mass/Vol] 14.0 mg/dL Normal 9.0-20.0 [facility] Comment on above: Performed By: #### B RECYCLING COORDINATOR, HSTROPN, BMP, TSH #### [facility] [address] [place] [id number] Clint Sisi Urea nitrogen/Creatinine [Mass ratio] 13.5 mg/mg Normal [facility] Comment on above: Performed By: #### B RECYCLING COORDINATOR, HSTROPN, BMP, TSH #### [facility] [address] [place] [id number] Clint Sisi TROPONIN, HIGH SENSITIVITYon 01-08-2021 HSTROP <4.0 Normal 4.0-42.2 [facility] Comment on above: Result Comment: CUT- OFF POINTS HAVE BEEN ESTABLISHED BASED ON THE FOURTH UNIVERSAL DEFINITIONS OF MYOCARDIAL INFARCTION. THE UPPER REFERENCE LIMIT (URL) OF TROPONIN, DEFINED THE 99TH PERCENTILE OF cTnI DISTRIBUTION IN A REFERENCE POPULATION, HAS BEEN CONFIRMED THE DECISION THRESHOLD FOR CT DIAGNOSIS. Performed By: #### P T, DDIM, PTT #### [facility] [address] [place] [address] Clint Sisi TSHon 01-08-2021 TSH 1.639 uIU/mL Normal 0.470-4.680 [facility] Comment on above: Performed By: #### B RECYCLING COORDINATOR, HSTROPN, BMP, TSH #### [facility] [address] [place] [id number] Clint Sisi TSH RANGE SEE BELOW Normal [facility] Comment on above: Result Comment: <0.3 4 UIU/ml HYPERTHYROID 0.34-5.60 UIU/ml EUTHYROID >5.60 UIU/ml HYPOTHYROID Performed By: #### B RECYCLING COORDINATOR, HSTROPN, BMP, TSH #### [facility] [address] [place], [place] [address] Clint Laird XR CHEST 2 Von 01-08-2021 [...] PIPER HURST Date: 2021-01-08 16:56 Normal [facility] US SCROTUM W VASCULAR ORGANo n [...] MARVIN RITTER Date: 2020-09-30 21:18 Normal [facility] BNPon 04-15-2020 Natriuretic peptide B (Bld) [Mass/Vol] 22.0 pg/mL Normal <=450.0 [facility] Comment on above: Performed By: #### P T, DDIM, PTT #### [facility] [address] [place] [address] Clintcolin Laird CBC AUTO DIFFon 04-15-2020 BASO # 0.1 103/ul Normal 0.0-0.1 [facility] Comment on above: Performed By: #### P T, DDIM, PTT #### [facility] [address] [place] [address] Clintcolin Laird Basophils/100 WBC (Bld) 0.8 % Normal 0.2-2.0 [facility] Comment on above: Performed By: #### P T, DDIM, PTT #### [facility] [address] [place] [address] Clint Sisi EO # 0.3 103/ul Normal 0.0-0.7 [facility] Comment on above: Performed By: #### P T, DDIM, PTT #### [facility] [address] [place] [address] Clint Laird Eosinophils/100 WBC (Bld) 4.4 % Normal 0.9-7.0 [facility] Comment on above: Performed By: #### P T, DDIM, PTT #### [facility] [address] [place] [address] Clint Laird Erythrocyte distribution width (RBC) [Ratio] 12.9 % Normal 11.0-15.0 [facility] Comment on above: Performed By: #### P T, DDIM, PTT #### [facility] [address] [place] [address] Clint Laird Hematocrit (Bld) [Volume fraction] 46.3 % Normal 42.0-54.0 [facility] Comment on above: Performed By: #### P T, DDIM, PTT #### [facility] [address] [place] [address] Clint Sisi Hemoglobin (Bld) [Mass/Vol] 15.5 g/dL Normal 14.0-18.0 [facility] Comment on above: Performed By: #### P T, DDIM, PTT #### [facility] [address] [place] [address] Clint Sisi IG # 0.04 10e3/ul Critically high 0.00-0.03 [facility] Comment on above: Performed By: #### P T, DDIM, PTT #### [facility] [address] [place], [place] [id number] Clint Laird IG % 0.6 % Critically high 0.0-0.5 [facility] Comment on above: Performed By: #### P T, DDIM, PTT #### [facility] [address] [place] [address] Clint Laird LYMPH # 2.1 103/ul Normal 1.2-3.8 [facility] Comment on above: Performed By: #### P T, DDIM, PTT #### [facility] [address] [place] [address] Clint Laird Lymphocytes/100 WBC (Bld) 30.0 % Normal 20.5-60.0 [facility] Comment on above: Performed By: #### P T, DDIM, PTT #### [facility] [address] [place] [address] Clint Laird MANUAL DIFF REQ NO Normal [facility] Comment on above: Performed By: #### P T, DDIM, PTT #### [facility] [address] [place] [address] Clint Laird MCH (RBC) [Entitic mass] 30.5 pg Normal 25.9-34.0 [facility] Comment on above: Performed By: #### P T, DDIM, PTT #### [facility] [address] [place] [address] Clint Laird MCHC (RBC) [Mass/Vol] 33.5 g/dL Normal 29.9-35.2 [facility] Comment on above: Performed By: #### P T, DDIM, PTT #### [facility] [address] [place] [address] Clint Laird MCV (RBC) [Entitic vol] 91.0 fL Normal 80.0-94.0 [facility] Comment on above: Performed By: #### P T, DDIM, PTT #### [facility] [address] [place], [place] [id number] Clint Sisi MONO # 0.7 103/ul Normal 0.3-0.8 [facility] Comment on above: Performed By: #### P T, DDIM, PTT #### [facility] [address] [place], [place] [id number] Clint Sisi Monocytes/100 WBC (Bld) 9.3 % Normal 1.7-12.0 [facility] Comment on above: Performed By: #### P T, DDIM, PTT #### [facility] [address] [place] [address] Clint Sisi NEUT # 3.9 103/ul Normal 1.4-6.5 [facility] Comment on above: Performed By: #### P T, DDIM, PTT #### [facility] [address] [place] [address] Clint Sisi Neutrophils/100 WBC (Bld) 54.9 % Normal 43.0-75.0 [facility] Comment on above: Performed By: #### P T, DDIM, PTT #### [facility] [address] [place] [address] Clint Sisi Platelet mean volume (Bld) [Entitic vol] 11.8 fL Normal 9.5-13.5 [facility] Comment on above: Performed By: #### P T, DDIM, PTT #### [facility] [address] [place], [place] [id number] Clint Sisi PLT 227 103/ul Normal 150-450 [facility] Comment on above: Performed By: #### P T, DDIM, PTT #### [facility] [address] [place] [address] Clint Sisi RBC 5.09 106/ul Normal 4.70-6.10 [facility] Comment on above: Performed By: #### P T, DDIM, PTT #### [facility] [address] [place] [address] Clint Sisi WBC 7.1 103/ul Normal 4.0-11.0 [facility] Comment on above: Performed By: #### P T, DDIM, PTT #### [facility] [address] [place] [address] Clint Laird D-DIMERon 04-15-2020 D-DIMER COMMENTS SEE BELOW Normal [facility] Comment on above: Result [...] By: #### P T, DDIM, PTT #### [facility] [address] [place] [address] Clint Laird Fibrin D-dimer FEU IA (Bld) [Mass/Vol] 0.24 ug/mL Normal 0.19-0.50 [facility] Comment on above: Performed By: #### P T, DDIM, PTT #### [facility] [address] [place] [address] Clint Laird PROF 14(COMP METB)on 020 Albumin [Mass/Vol] 3.8 g/dL Normal 3.5-5.0 [facility] Comment on above: Performed By: #### P T, DDIM, PTT #### [facility] [address] [place], [place] [id number] Clint Laird Albumin/Globulin [Mass ratio] 1.1 {ratio} Normal [facility] Comment on above: Performed By: #### P T, DDIM, PTT #### [facility] [address] [place], [place] [id number] Clint Laird ALP [Catalytic activity/Vol] 68 U/L Normal 38-126 [facility] Comment on above: Performed By: #### P T, DDIM, PTT #### [facility] [address] [place], [place] [id number] Clint Laird ALT [Catalytic activity/Vol] 39 U/L Normal 21-72 [facility] Comment on above: Performed By: #### P T, DDIM, PTT #### [facility] [address] [place] [id number] Clint Sisi Anion gap [Moles/Vol] 10.4 mmol/L Normal [facility] Comment on above: Performed By: #### P T, DDIM, PTT #### [facility] [address] [place] [address] Clint Sisi AST [Catalytic activity/Vol] 22 U/L Normal 17-59 [facility] Comment on above: Performed By: #### P T, DDIM, PTT #### [facility] [address] [place] [address] Clint Sisi Bilirubin [Mass/Vol] 0.5 mg/dL Normal 0.2-1.3 [facility] Comment on above: Performed By: #### P T, DDIM, PTT #### [facility] [address] [place] [address] Clint Sisi Calcium [Mass/Vol] 9.0 mg/dL Normal 8.4-10.2 [facility] Comment on above: Performed By: #### P T, DDIM, PTT #### [facility] [address] [place] [address] Clint Sisi Chloride [Moles/Vol] 104 mmol/L Normal 98-107 [facility] Comment on above: Performed By: #### P T, DDIM, PTT #### [facility] [address] [place] [address] Clint Sisi CO2 [Moles/Vol] 30.0 mmol/L Normal 22.0-30.0 [facility] Comment on above: Performed By: #### P T, DDIM, PTT #### [facility] [address] [place] [address] Clint Sisi Creatinine [Mass/Vol] 1.07 mg/dL Normal 0.66-1.25 [facility] Comment on above: Performed By: #### P T, DDIM, PTT #### [facility] [address] [place] [address] Clint Sisi EGFR-AF [place] >60 Normal >=60 [facility] Comment on above: Performed By: #### P T, DDIM, PTT #### [facility] [address] [place] [address] Clint Sisi EGFR-NON AF [place]IZ[place] >60 Normal >=60 [facility] Comment on above: Performed By: #### P T, DDIM, PTT #### [facility] [address] [place] [address] Clint Sisi Globulin (S) [Mass/Vol] 3.6 g/dL Normal [facility] Comment on above: Performed By: #### P T, DDIM, PTT #### [facility] [address] [place] [address] Clint Sisi Glucose [Mass/Vol] 104 mg/dL Normal 74-106 [facility] Comment on above: Performed By: #### P T, DDIM, PTT #### [facility] [address] [place] [address] Clint Sisi Potassium [Moles/Vol] 4.4 mmol/L Normal 3.4-5.0 [facility] Comment on above: Performed By: #### P T, DDIM, PTT #### [facility] [address] [place] [address] Clint Sisi Protein [Mass/Vol] 7.4 g/dL Normal 6.1-8.2 [facility] Comment on above: Performed By: #### P T, DDIM, PTT #### [facility] [address] [place] [address] Clint Sisi Sodium [Moles/Vol] 140 mmol/L Normal 137-145 [facility] Comment on above: Performed By: #### P T, DDIM, PTT #### [facility] [address] [place] [address] Clint Sisi Urea nitrogen [Mass/Vol] 14.0 mg/dL Normal 9.0-20.0 [facility] Comment on above: Performed By: #### P T, DDIM, PTT #### [facility] [address] [place] [address] Clint Laird Urea nitrogen/Creatinine [Mass ratio] 13.0 mg/mg Normal [facility] Comment on above: Performed By: #### P T, DDIM, PTT #### [facility] [address] [place] [address] Clint Laird PROTIMEon 04-15-2020 INR Coag (PPP) [Relative time] 0.95 {INR} Normal [facility] Comment on above: Performed By: #### P T, DDIM, PTT #### [facility] [address] [place] [address] Clint Laird INR GUIDELINES SEE BELOW Normal [facility] Comment on above: Result Comment: LOPEZ RED INR: 2.0 - 3.0 CONDITIONS NOT LISTED BELOW 2.5 - 3.5 FOR PROSTHETIC HEART VALVE REPLACEMENT 2.5 - 3.5 RECURRENT THROMBOSIS Performed By: #### P T, DDIM, PTT #### [facility] [address] [place] [address] Clint Laird PT Coag (PPP) [Time] 10.1 s Normal 9.0-11.6 [facility] Comment on above: Performed By: #### P T, DDIM, PTT #### [facility] [address] [place] [address] Clint Laird PT NORMAL PLEASE NOTE: NORMAL RANGE CHANGE 03-09-2014 DUE TO REAGENT LOT CHANGE [facility] Comment on above: Performed By: #### P T, DDIM, PTT #### [facility] [address] [place] [address] Clint Laird PTTon 04-15-2020 aPTT Coag (Bld) [Time] 32.2 s Normal 22.3-36.2 [facility] Comment on above: Performed By: #### P T, DDIM, PTT #### [facility] [address] [place] [address] Clintcolin Laird PTT NORMAL PLEASE NOTE: NORMAL RANGE CHANGE 05-16-2015 DUE TO REAGENT LOT CHANGE Normal [facility] Comment on above: Performed By: #### P T, DDIM, PTT #### [facility] [address] [address] Clint Laird TROPONIN - Ion 04-15-2020 TROP <0.012 Normal <=0.034 [facility] Comment on above: Performed By: #### P T, DDIM, PTT #### [facility] [address] [place] [address] Clint Laird TROPONIN RANGE SEE BELOW Normal [facility] Comment on above: Result Comment: <0.0 34 ng/ml NEGATIVE 0.034-0.119 INDETERMINATE 0.120 AMI CUT OFF Performed By: #### P T, DDIM, PTT #### [facility] [address] [place] [address] Clint Laird TSHon 04-15-2020 TSH 1.185 uIU/mL Normal 0.470-4.680 [facility] Comment on above: Performed By: #### P T, DDIM, PTT #### [facility] [address] [place], [place] [id number] Clint Laird TSH RANGE SEE BELOW Normal [facility] Comment on above: Result Comment: <0.3 4 UIU/ml HYPERTHYROID 0.34-5.60 UIU/ml EUTHYROID >5.60 UIU/ml HYPOTHYROID Performed By: #### P T, DDIM, PTT #### [facility] [address] [place], [place] [id number] Clint Laird XR CHEST 2 Von 04-15-2020 XR CHEST 2 V EXAMINATION: XR CHEST 2 V HISTORY: SHORTNESS OF BREATH COMPARISON: [place] XR from 05/25/2014 TECHNIQUE: 2 projections FINDINGS: LUNGS: No significant pulmonary parenchymal abnormalities. VASCULATURE: No increased pulmonary vasculature. PLEURA: No pneumothorax, effusion, or pleural thickening. CARDIAC: No cardiomegaly or cardiac silhouette abnormality. MEDIASTINUM: No visible mass or adenopathy. BONES: No fracture or visible bone lesion. OTHER: Negative. IMPRESSION: No acute cardiopulmonary findings Electronically authenticated by: AMY LARSON Date: 2020-04-15 09:24 Normal [facility] Vital Signs Date Time Vital Sign Value Performing Clinician Facility 02-02-2025 13:56-0400 Body height 182.9 cm Candelaria Doshi MD Work Phone: [facility] 02-02-2025 13:56-0400 Body mass index (BMI) [Ratio] 31.6 kg/m2 Candelaria Doshi MD Work Phone: [facility] 02-02-2025 13:56-0400 Body weight 105.69 kg Candelaria Doshi MD Work Phone: [facility] 02-02-2025 13:56-0400 Diastolic blood pressure 80 mm[Hg] Candelaria Doshi MD Work Phone: [facility] 02-02-2025 13:56-0400 Heart rate 68 /min Candelaria Doshi MD Work Phone: [facility] 02-02-2025 13:56-0400 Systolic blood pressure 122 mm[Hg] Candelaria Doshi MD Work Phone: [facility] 08-04-2024 14:07-0500 Body height 182.9 cm Candelaria Doshi MD Work Phone: [facility] 08-04-2024 14:07-0500 Body mass index (BMI) [Ratio] 31.52 kg/m2 Candelaria Doshi MD Work Phone: [facility] 08-04-2024 14:07-0500 Body weight 105.42 kg Candelaria Doshi MD Work Phone: [facility] 08-04-2024 14:07-0500 Diastolic blood pressure 78 mm[Hg] Candelaria Doshi MD Work Phone: [facility] 08-04-2024 14:07-0500 Heart rate 72 /min Candelaria Doshi MD Work Phone: [facility] 08-04-2024 14:07-0500 Systolic blood pressure 110 mm[Hg] Candelaria Doshi MD Work Phone: [facility] 05-31-2024 10:19-0500 Diastolic blood pressure 82 mm[Hg] Isela 1 [facility] 05-31-2024 10:19-0500 Heart rate 73 /min Isela 1 [facility] 05-31-2024 10:19-0500 Systolic blood pressure 120 mm[Hg] Isela 1 [facility] 05-12-2024 09:16-0500 Body mass index (BMI) [Ratio] 30.9 kg/m2 Lawson Singletonng DO Work Phone[facility] 05-12-2024 09:16-0500 Body temperature 97.2 [degF] Lawson Howelong [facility] 05-12-2024 09:16-0500 Body weight 103.33 kg Lawson Singletonng DO [facility] 05-12-2024 09:16-0500 Diastolic blood pressure 84 mm[Hg] Lawson Singletonng DO [facility] 05-12-2024 09:16-0500 Heart rate 72 /min Lawson Singletonng DO [facility] 05-12-2024 09:16-0500 SaO2% (BldA) [Mass fraction] 98 % Lawson Howelong DO [facility] 05-12-2024 09:16-0500 Systolic blood pressure 126 mm[Hg] Lawson Singletonng DO [facility] 04-28-2024 15:00-0500 Body height 182.9 cm Candelaria Doshi MD Work Phone: [facility] 04-28-2024 15:00-0500 Body mass index (BMI) [Ratio] 30.65 kg/m2 Candelaria Doshi MD Work Phone: [facility] 04-28-2024 15:00-0500 Body weight 102.51 kg Candelaria Doshi MD Work Phone: [facility] 04-28-2024 15:00-0500 Diastolic blood pressure 88 mm[Hg] Candelaria Doshi MD Work Phone: [facility] 04-28-2024 15:00-0500 Heart rate 73 /min Candelaria Doshi MD Work Phone: [facility] 04-28-2024 15:00-0500 Systolic blood pressure 144 mm[Hg] Candelaria Doshi MD Work Phone: [facility] 02-10-2024 10:28-0400 Body height 182.9 cm Lawson Furlong DO Work Phone: [employer] 02-10-2024 10:28-0400 Body mass index (BMI) [Ratio] 30.14 kg/m2 Lawson Furlong DO [facility] 02-10-2024 10:28-0400 Body temperature 98.1 [degF] Lawson Furlong DO [facility] 02-10-2024 10:28-0400 Body weight 100.79 kg Lawson Furlong DO [facility] Phone[facility] 02-10-2024 10:28-0400 Diastolic blood pressure 70 mm[Hg] Lawson Furlong DO Work Phone: [employer] 02-10-2024 10:28-0400 Heart rate 75 /min Lawson Furlong DO Work Phone: [employer] 02-10-2024 10:28-0400 Respiratory rate 20 /min Lawson Furlong DO Work Phone: [employer] 02-10-2024 10:28-0400 SaO2% (BldA) [Mass fraction] 97 % Lawson Furlong DO Work Phone: [facility] [employer] [facility] 02-10-2024 10:28-0400 Systolic blood pressure 108 mm[Hg] Lawson Hodge DO Work Phone: [facility] [employer] [facility] 10-19-2023 08:47-0400 Body height 182.9 cm Paolo Hammonds APRN-DIRECTOR HEART Work Phone: [facility] 10-19-2023 08:47-0400 Body mass index (BMI) [Ratio] 30.61 kg/m2 Paolo Hammonds INSTRUCTIONAL INTERVENTIONIST-DIRECTOR HEART Work Phone: [facility] [employer] [facility] 10-19-2023 08:47-0400 Body temperature 98.71 [degF] Paolo Hammonds APRN-DIRECTOR HEART Work Phone: [facility] [employer] [facility] 10-19-2023 08:47-0400 Body weight 102.38 kg Paolo Hammonds INSTRUCTIONAL INTERVENTIONIST-DIRECTOR HEART Work Phone: [facility] [employer] [facility] 10-19-2023 08:47-0400 Diastolic blood pressure 62 mm[Hg] Paolo Hammonds INSTRUCTIONAL INTERVENTIONIST-DIRECTOR HEART Work Phone: [facility] [employer] [facility] 10-19-2023 08:47-0400 Heart rate 72 /min Paolo Hammonds APRN-DIRECTOR HEART Work Phone: [facility] [employer] [facility] 10-19-2023 08:47-0400 Respiratory rate 18 /min Paolo Hammonds APRN-DIRECTOR HEART Work Phone: [facility] 10-19-2023 08:47-0400 SaO2% (BldA) [Mass fraction] 97 % Paolo Hammonds APRN-DIRECTOR HEART Work Phone: [facility] 10-19-2023 08:47-0400 Systolic blood pressure 90 mm[Hg] Paolo Hammonds APRN-DIRECTOR HEART Work Phone: [facility] [employer] [facility] 04-22-2023 16:23-0400 Body height 182.9 cm Candelaria Doshi MD Work Phone: [facility] 04-22-2023 16:23-0400 Body mass index (BMI) [Ratio] 30.38 kg/m2 Candelaria Doshi MD Work Phone: [facility] 04-22-2023 16:23-0400 Body weight 101.61 kg Candelaria Doshi MD Work Phone: [facility] 04-22-2023 16:23-0400 Diastolic blood pressure 74 mm[Hg] Candelaria Doshi MD Work Phone: [facility] 04-22-2023 16:23-0400 Heart rate 82 /min Candelaria Doshi MD Work Phone: [facility] 04-22-2023 16:23-0400 Systolic blood pressure 126 mm[Hg] Candelaria Doshi MD Work Phone: [facility] 07-28-2022 13:10-0500 Body height 182.88 cm Lawson G Furlong Work Phone: [facility] [address] DO Work Phone: 07-28-2022 13:10-0500 Body mass index (BMI) [Ratio] 30.92 kg/m2 Lawson G Furlong Work Phone: [facility] [address] DO Work Phone: 07-28-2022 13:10-0500 Body surface area Derived from formula 2.25 m2 Lawson G Furlong Work Phone: [facility] [address] DO Work Phone: 07-28-2022 13:10-0500 Body weight 103.42 kg Lawson G Furlong Work Phone: [facility] [address] DO Work Phone: 07-28-2022 13:10-0500 Diastolic blood pressure 84 mm[Hg] Lawson G Furlong Work Phone: [facility] [address] DO Work Phone: 07-28-2022 13:10-0500 Heart rate 82 /min Lawson G Furlong Work Phone: [facility] [address] DO Work Phone: 07-28-2022 13:10-0500 Systolic blood pressure 128 mm[Hg] Lawson G Furlong Work Phone: [facility] [facility] DO Work Phone: 07-11-2021 16:00-0500 Body height 182.88 cm Lawson G Furlong Work Phone: [facility] [address] DO Work Phone: 07-11-2021 16:00-0500 Body mass index (BMI) [Ratio] 30.24 kg/m2 Lawson G Furlong Work Phone: [facility] [place] [address] DO Work Phone: 07-11-2021 16:00-0500 Body surface area Derived from formula 2.23 m2 Lawson G Furlong Work Phone: [facility] [address] DO Work Phone: 07-11-2021 16:00-0500 Body weight 101.15 kg Lawson G Furlong Work Phone: [facility] [facility] DO Work Phone: 07-11-2021 16:00-0500 Diastolic blood pressure 68 mm[Hg] Lawson G Furlong Work Phone: [facility] [address] DO Work Phone: 07-11-2021 16:00-0500 Heart rate 84 /min Lawson G Furlong Work Phone: [facility] [facility] DO Work Phone: 07-11-2021 16:00-0500 Systolic blood pressure 118 mm[Hg] Lawson Howebryce Work Phone: [facility] [facility] DO Work Phone: Encounters Encounter Date Encounter Type Care Provider Facility Start: 02-02-2025 End: 02-02-2025 Office outpatient visit 25 minutes Candelaria Doshi MD Work Phone: [facility] Comment on above: Palpitations (Primar y Dx); Ventricular ectopic beats; PAC (premature atrial contraction); Chest pain, unspecified type; BMI 31.0-31.9,adult; Shortness of breath; Current smoker; Mixed hyperlipidemia Start: 02-02-2025 End: 02-02-2025 [facility] Start: 09-30-2024 End: 09-30-2024 ambulatory CHARIS Fela SCHOFIELD [facility] Start: 08-04-2024 End: 08-04-2024 Office outpatient visit 25 minutes Candelaria Doshi MD Work Phone: [facility] Comment on above: Chest pain, unspecif ied type (Primary Dx); Ventricular ectopic beats; Palpitations; PAC (premature atrial contraction); Shortness of breath; BMI 31.0-31.9,adult; Current smoker; Screening for hyperlipidemia Start: 08-04-2024 End: 08-04-2024 [facility] Start: 06-20-2024 End: 06-20-2024 Refill Lawson March Naveen DO Work Phone: [facility] Start: 05-31-2024 End: 05-31-2024 Subsequent hospital visit by physician Isela Ashton Stress Room 1 [facility] Comment on above: Chest pain, unspecif ied type Start: 05-31-2024 End: 05-31-2024 [facility] Start: 05-12-2024 End: 05-12-2024 ambulatory [facility] Start: 05-12-2024 Encounter for genera l adult medical examination without abnormal findings [facility] Start: 05-12-2024 End: 05-12-2024 Patient encounter status [facility] DO Work Phone: [facility] [employer] Work Phone: Start: 05-12-2024 End: 05-12-2024 Periodic preventive med est patient 40-64yrs Lawson [facility] DO Work Phone: [facility] Comment on above: Well adult exam (Brianna sd Dx); Psoriasis; Tobacco abuse; Gastroesophageal reflux disease, unspecified whether esophagitis present; Class 1 obesity due to excess calories with serious comorbidity and body mass index (BMI) of 30.0 to 30.9 in adult; Depression with anxiety; PAC (premature atrial contraction); Ventricular ectopic beats Start: 05-12-2024 End: 05-12-2024 ambulatory [facility] Start: 05-12-2024 Encounter for genera l adult medical examination without abnormal findings [facility] Start: 04-28-2024 End: 04-28-2024 Office outpatient visit 25 minutes Candelaria Doshi MD Work Phone: [facility] Comment on above: Chest pain, unspecif ied type (Primary Dx); Palpitations; Ventricular ectopic beats; PAC (premature atrial contraction); Shortness of breath; BMI 38.0-38.9,adult; Current smoker Start: 04-28-2024 End: 04-28-[address] [facility] Start: 03-28-2024 End: 03-28-2024 ambulatory SRINIVAS MONCADA Not Available Start: 03-23-2024 End: 03-23-2024 Patient encounter procedure MD Hipolito Ruiz Work Phone: [facility] [address] Work Phone: Start: 03-23-2024 End: 03-23-2024 ambulatory MD Hipolito Ruiz Work Phone: [facility] Work Phone: Start: 03-22-2024 End: 03-22-2024 Refill Lawson Howelong DO Work Phone: [facility] Start: 03-11-2024 End: 03-11-2024 Telephone encounter [facility] Start: 03-03-2024 End: 03-08-2024 Telephone encounter [facility] Start: 02-26-2024 End: 02-26-2024 Orders Only Lawson Howelong DO Work Phone: [facility] Comment on above: Psoriasis (Primary D x) Start: 02-16-2024 End: 02-16-2024 Orders Only Lawson Howelong DO Work Phone: [facility] Start: 02-10-2024 End: 02-10-2024 Office outpatient visit 15 minutes Lawson Howelong DO Work Phone: [facility] Comment on above: Psoriasis (Primary D x) Start: 02-10-2024 End: 02-10-2024 ambulatory LAWSONLIOR HOWELIZANG [facility] Start: 12-23-2023 End: 12-23-2023 Refill Lawson Howelong DO Work Phone: [facility] Start: 12-23-2023 End: 01-12-2024 Telephone encounter Lawson Howelong DO Work Phone: [facility] Start: 10-19-2023 End: 10-19-2023 Office outpatient visit 15 minutes Paolo Hammonds APRN-DIRECTOR HEART Work Phone: [facility] Comment on above: Strain of lumbar par aspinous muscle, subsequent encounter (Primary Dx) Start: 10-19-2023 End: 10-19-2023 ambulatory PAOLO J HAMMONDS [facility] Start: 09-24-2023 Refill Lawson henderson DO Work Phone: [facility] Start: 04-22-2023 End: 04-22-2023 Office outpatient visit 15 minutes Candelaria Doshi MD Work Phone: [facility] Comment on above: Shortness of breath (Primary Dx); Palpitations; Ventricular ectopic beats; PAC (premature atrial contraction); BMI 38.0-38.9,adult Start: 10-28-2022 Rx Renewal Lawson henderson Work Phone: [facility] [facility] DO Work Phone: Start: 07-28-2022 Office outpatient vi sit 25 minutes Lawson Hodge Work Phone: [facility] [facility] DO Work Phone: Start: 07-28-2022 ambulatory Lawson Howebryce Jessica acility: Start: 10-21-2021 Rx Renewal Lawson henderson Work Phone: [facility] 600 DO Work Phone: Start: 07-11-2021 Office outpatient vi sit 15 minutes Lawson Joaquim Manisantiago Work Phone: [facility] DO Work Phone: Start: 01-08-2021 End: 01-08-[address] ANNITA JOHNSON Facility:[facility] Start: 09-30-2020 End: 09-30-[address] TO BAÑUELOS Facility:[facility] Start: 04-15-2020 End: 04-15-[address] ANNITA JOHNSON Facility:[facility] Procedures Date Procedure Procedure Detail Performing Clinician Start: 05-31-2024 Cv strs tst xers&/or rx cont ecg trcg only Candelaria Doshi MD Work Phone: Start: 05-12-2024 Adult depression scr eening assessment Lawson Howelong DO Work Phone: Start: 04-28-2024 Ecg routine ecg w/le ast 12 lds w/i&r Candelaria Doshi MD Work Phone: Start: 02-10-2024 Adult depression scr eening assessment Lawson Furlong DO Work Phone: Start: 10-19-2023 Adult depression scr eening assessment Paolo Hammonds INSTRUCTIONAL INTERVENTIONIST-DIRECTOR HEART Work Phone: Start: 11-06-2022 Adult depression scr eening assessment Lawsonlior Howelong DO Work Phone: Start: 06-13-2020 Echocardiography Operation on gallbladder Kanu March Furlong Work Phone: Total colonoscopy Lawson G F urlong Work Phone: Plan of Treatment Date Care Activity Detail Author Start: 2028 Zoster Vaccines (1 o f 2) Zoster Vaccines (1 of 2) [facility] Start: 02-01-2026 End: 02-01-2026 Patient encounter procedure 02/01/2026 2:00 PM EDT Office Visit [facility] [address] [phone] Candelaria Doshi MD [address] [facility] [address] [place], [place] [id number] [facility] Start: 05-15-2025 End: 05-15-2025 Patient encounter procedure 05/15/2025 9:30 AM EST Office Visit [facility] [address] [place] [id number] Lawson Hodge JoaquimDO [address], [place] [address] [facility] Start: 05-13-2025 Yearly Adult Physical Yearly Adult P hysical [facility] Start: 05-12-2025 Adult BMI Screening Adult BMI Screen ing [facility] Start: 05-12-2025 Depression Screening Depression Scre ening [facility] Start: 05-12-2025 Tobacco Screening Tobacco Screening [facility] Start: 02-20-2025 Influenza vaccination Influenza Vacc ine (#1) [facility] Start: 02-09-2025 Adult BMI Screening Adult BMI Screen ing [facility] Start: 02-09-2025 Depression Screening Depression Scre ening [facility] Start: 02-09-2025 Tobacco Screening Tobacco Screening [facility] Start: 02-02-2025 End: 02-02-2025 Patient encounter procedure 02/02/2025 2:00 PM EDT Office Visit [facility] [address] [facility] [address] [place] [id number] Candelaria Doshi MD [address] [place] [address] [address] [place] [address] [facility] Start: 10-18-2024 Adult BMI Follow Up Plan Adult BMI Follow Up Plan [facility] Start: 10-18-2024 Adult BMI Screening Adult BMI Screen ing [facility] Start: 10-18-2024 Depression Screening Depression Scre [facility] Start: 10-18-2024 Tobacco Screening Tobacco Screening [facility] Start: 08-04-2024 End: 08-04-2024 Patient encounter procedure 08/04/2024 2:10 PM EST Office Visit [facility] [address] [facility] [address] [place] [address] Candelaria Doshi MD [address] [facility] [address] [place] [address] [facility] Start: 08-04-2024 End: 08-04-2025 Lipid 1996 panel - Serum or Plasma Lipid Panel Lab Routine Screening for hyperlipidemia Expected: 08/04/2024 (Approximate), Expires: 08/04/2025 [facility] Service Area Work Phone: Comment on above: Expected: 08/04/2024 (Approximate), Expires: 08/04/2025 Start: 07-12-2024 Screening for malign ant neoplasm of colon Colon Cancer Screening 3 Year [facility] Comment on above: Postponed from 11/18 (Patient Refused) Start: 05-12-2024 End: 05-12-2024 Patient encounter procedure 05/12/2024 9:30 AM EST [facility] [address] [place] [address] Lawson Hodge DO [address], [facility] [place] [address] [facility] Start: 05-09-2024 End: 05-09-2024 Patient encounter procedure 05/09/2024 2:30 PM EST Appointment [facility] [address] [place] [address] [facility] Start: 04-28-2024 End: 04-28-2024 Patient encounter procedure 04/28/2024 3:00 PM EST Office Visit [facility] [address] [place] [address] Candelaria Doshi MD [address] [place] [address] [facility] Start: 04-28-2024 End: 04-28-2025 Cardiac stress study Procedure Stress Test Cardiac Services Routine Chest pain, unspecified type Expected: 04/28/2024, Expires: 04/28/2025 [facility] Service Area Work Phone: Comment on above: Expected: 04/28/2024 , Expires: 04/28/2025 Start: 03-23-2024 Hepatitis B core antibody measurement [facility] Start: 03-23-2024 [facility] Start: 02-21-2024 COVID-19 Vaccine ( season) COVID-19 Vaccine ( season) [facility] Start: 02-21-2024 Influenza vaccination [facility] Start: 12-15-2023 DTaP,Tdap and Td Vaccines (3 - Td or Tdap) DTaP,Tdap and Td Vaccines (3 - Td or Tdap) [facility] Start: 12-15-2023 DTaP/Tdap/Td Vaccine s (3 - Td or Tdap) DTaP/Tdap/Td Vaccines (3 - Td or Tdap) [facility] Start: 11-19-2023 Screening for malign ant neoplasm of colon Colon Cancer Screening 3 Year Cologuard [facility] Start: 11-07-2023 Adult BMI Screening Adult BMI Screen ing [facility] Start: 11-07-2023 Depression Screening Depression Scre ening [facility] Start: 11-07-2023 Tobacco Screening Tobacco Screening [facility] Start: 04-22-2023 FUV, Provider: Candelaria Doshi, Status: Pen, Time: 3:40 PM FUV, Provider: Candelaria Doshi, Status: Pen, Time: 3:40 PM [facility] 250 DO Work Phone: Start: 02-20-2023 Influenza vaccination Influenza Vacc ine (#1) [facility] Start: 07-10-2022 FUV, Provider: Candelaria Doshi, Status: Pen, Time: 3:50 PM FUV, Provider: Candelaria Doshi, Status: Pen, Time: 3:50 PM [facility] 250 DO Work Phone: Start: 2000 DTaP/Tdap/Td Vaccine s (1 - Tdap) DTaP/Tdap/Td Vaccines (1 - Tdap) [facility] Start: 1997 Hepatitis B Vaccines (1 of 3 - 19+ 3-dose series) Hepatitis B Vaccines (1 of 3 - 19+ 3-dose series) [facility] Start: 1997 Pneumococcal Vaccine : Pediatrics and At-Risk Adult Patients (1 of 2 - PCV) Pneumococcal Vaccine: Pediatrics and At-Risk Adult Patients (1 of 2 - PCV) [facility] Start: 1996 Adult BMI Follow Up Plan Adult BMI Follow Up Plan [employer] Start: 1996 Diabetes mellitus screening Diabetes Screening [facility] Start: 1996 Hepatitis C screening Hepatitis C Sc [facility] Start: 1984 Pneumococcal Vaccine : Pediatrics (0 to 5 Years) and At-Risk Patients (6 to 64 Years) (1 - PCV) Pneumococcal Vaccine: Pediatrics (0 to 5 Years) and At-Risk Patients (6 to 64 Years) (1 - PCV) [facility] Start: 1984 Pneumococcal Vaccine : Pediatrics (0 to 5 Years) and At-Risk Patients (6 to 64 Years) (1 of 2 - PCV) Pneumococcal Vaccine: Pediatrics (0 to 5 Years) and At-Risk Patients (6 to 64 Years) (1 of 2 - PCV) [facility] Start: 11-19-1983 COVID-19 Vaccine (#1) COVID-19 Vacci ne (#1) [facility] Start: 11-19-1979 MMR Vaccines (1 of 1 - Standard series) MMR Vaccines (1 of 1 - Standard series) [facility] Start: 05-21-1979 COVID-19 Vaccine (#1) COVID-19 Vacci ne (#1) [facility] Start: 1978 Hepatitis B Vaccines (1 of 3 - 3-dose series) Hepatitis B Vaccines (1 of 3 - 3-dose series) [facility] Start: 1978 HIV screening HIV Screening [facility] Start: 1978 Lipid panel Lipid Panel [facility] Start: 1978 Screening for malign ant neoplasm of colon [facility] Start: 1978 Tobacco Counseling Tobacco Counselin g [employer] Start: 1978 Yearly Adult Physical Yearly Adult P hysical [facility] End: 05-12-2025 Comprehensive metabolic 2000 panel - Serum or Plasma Comprehensive metabolic panel Lab Routine Well adult exam 1 Occurrences starting 05/12/2024 until 05/12/2025 [employer] Comment on above: 1 Occurrences starti ng 05/12/2024 until 05/12/2025 Hepatitis B virus surface Ab [Presence] in Serum [facility] Hepatitis B virus surface Ag [Presence] in Serum or Plasma by Immunoassay [facility] Hepatitis C virus Ig G Ab [Presence] in Serum or Plasma by Immunoassay [facility] Interferon gamma assay [facility] End: 05-12-2025 Lipid panel Lipid panel Lab Routine Well adult exam 1 Occurrences starting 05/12/2024 until 05/12/2025 [email or web address] Work Phone: Comment on above: 1 Occurrences starti ng 05/12/2024 until 05/12/2025 Mycobacterium tuberculosis stimulated gamma interferon [Interpretation] in Blood [facility] Mycobacterium tuberculosis stimulated gamma interferon release by CD4+ and CD8+ T-cells [Units/volume] corrected for background in Blood [facility] Mycobacterium tuberculosis tuberculin stimulated gamma interferon [Presence] in Blood [facility] Immunizations Immunization Date Immunization Notes Care Provider [facility] 12-14-2013 tetanus toxoid, redu tim diphtheria toxoid, and acellular pertussis vaccine, adsorbed Lawson G [employer] Work Phone: [facility] 250 DO Work Phone: 11-20-2013 tetanus toxoid, redu tim diphtheria toxoid, and acellular pertussis vaccine, adsorbed Lawson G [employer] Work Phone: [facility] 250 DO Work Phone: Payers Date Payer Category Payer Self-pay 2022 [employer] [facility] Care [facility] Member Subscriber Plan / Payer (Effective 2022-Present) Name: Harshad Sarabia Relation to Subscriber: Self Name: Harshad Sarabia Payer ID: [id number] (NAIC) Type: Not on file Address: [address] [place] [id number] 2022 Blue Cross Blue [employer] Managed Care - Other [employer] Member Subscriber Plan / Payer (Effective 2022-Present) Name: Harshad Sarabia II Relation to Subscriber: Self Name: Harshad Sarabia II Payer ID: [id number] ([facility]) Type: Not on file Address: [address] [id number] 2022 Unknown [id number] 2022 Unknown 2012 Unknown [id number] 1978 Unknown [id number] [id number]. 2.593 1978 Unknown [id number] [id number]. 2.593 1978 Unknown [id number] 2.16840.1.677206.3.579. 2.593 1978 Unknown [id number] 2.16840.1.432744.3.579. 2.356 1978 Unknown [id number] 2.16840.1.014231.3.579. 2.1259 1978 Unknown [id number] 2.16840.1.329509.3.579. 2.1286 1978 Unknown [id number] 2.16840.1.807596.3.579. 2.1286 1978 Unknown [id number] 2.16840.1.738771.3.579. 2.1286 1978 Unknown [id number] 2.16.840.1.252359.3.579. 2.6 1978 Unknown [id number] [id number]. 2.1246 1978 Unknown [id number] 2.16.840.1.158692.3.579. 2.6 1978 Unknown [id number] 2.16.840.1.881795.3.579. 2.1244 1978 Unknown [id number] [id number]. 2.1243 1978 Unknown [id number] [id number]. 2.1244 1959 Unknown [id number] Unknown [id number]. 2.531 Social History Date Type Detail Facility Start: 04-22-2023 End: 02-02-2025 Current every day smoker Current every day smoker -[facility] 250 DO Work Phone: Comment on above: 1 ppd; 3 cups coffee daily; Start: 06-22-1994 End: 02-02-2025 Tobacco smoking status RIIS Smokes tobacco daily [facility] Work Phone: Start: 06-22-1994 History of tobacco use Cigarette Smo ker [facility] Work Phone: Start: 04-22-2023 End: 02-02-2025 Tobacco use and exposure Smokeless tobacco non-user [facility] Work Phone: Start: 04-22-2023 Alcohol intake Ex-drinker (finding) [facility] Work Phone: Start: 1980 Sex Assigned At Not on file [facility] Work Phone: Start: 04-22-2023 End: 02-02-2025 Gender identity Not on file [facility] Work Phone: Start: 04-12-2023 End: 08-04-2024 Exposure to SARS-CoV-2 (event) Not sure [facility] Start: 02-20-2021 Tobacco smoking stat us NHIS Smoker (finding) [facility] Start: 1980 Sex Assigned At Male F [facility] Start: 04-28-2024 End: 02-02-2025 Alcoholic beverage intake Current drinker of alcohol (finding) [facility] Start: 04-28-2024 Alcohol Comment social [facility] Work Phone: Has the Personal Estate Manager, or DoctorC threatened to shut off services in your home in past 12Mo No [facility] Do you belong to any clubs or organizations such as uatsdin groups, unions, fraternal or athletic groups, or school groups? Yes [facility] Are you now , , , , never or living with a partner? [facility] How often to you hav e a drink containing alcohol? 2-3 time sa week [facility] How many standard dr inks containing alcohol do you have on a typical day? 1 or 2 [facility] How often do you hav e 6 or more drinks on 1 occasion? Never [facility] Start: 05-17-2022 How hard is it for y ou to pay for the very basics like food, housing, medical care, and heating Not hard at all [facility] Do you feel stress - tense, restless, nervous, or anxious, or unable to sleep at night because your mind is troubled all the time - these days [OSQ] Only a little [facility] Start: 02-10-2024 Alcohol Comment occiasonally [facility] Start: 01-25-2015 Sex Male (finding) [facility] Start: 11-06-2022 End: 10-19-2023 Alcoholic beverage intake Current non-drinker of alcohol (finding) [facility] Clinical Notes 04-22-2023 to 02-02-2025 Candelaria Doshi MD - 02/02/2025 2:00 PM EDTPatient InstructionsAttachmentsCandelaria Doshi MD - 08/04/2024 2:10 PM ESTPatient InstructionsAttachmentsPatient InstructionsPatient Instructions Note Date & Type Note Facility 02-02-2025 History of Presen t illness Narrative Chief Complaint Patient presents with Follow-up 6 month follow up for Chest pain, unspecified type Subjective Harshad Sarabia is a 44 y.o. male HPI Patient here for follow-up care management for previous evaluation for palpitation with documentation of few PVCs, tobacco use and obesity. Since last time I saw him he denies any cardiac complaint of chest pain, palpitation, lightheadedness, dizziness or syncope. He remains very active. His home heart rate monitoring devices to demonstrate any arrhythmia. He brought a copy of his lipid profile showed LDL of around 130. Assessment 1. Previous evaluation for palpitation with documentation of PVCs. One episode interpreted as possible supraventricular tachycardia. Symptoms markedly improved. He had few sporadic episode but no arrhythmia were documented on his heart rate monitoring device patient denies any recent symptoms and appears to be stable 2. Recent evaluation for chest pain. Stress test was negative. Symptoms appear GI and completely resolved with Prilosec which she continue to use 3. Previous evaluation for shortness of breath likely due to tobacco use. He reports resolution of that 4. Previous complaint of lightheadedness resolved 5. Tobacco use 6. Obesity 7. Possible anxiety 8. Mild hyperlipidemia with LDL of 130 his cardiac risk score suggest 6% risk for cardiac event the next 10 years Plan 1. I advised the patient to to continue with observant approach I advised him to stop smoking and to repeat his lipid profile following low-cholesterol low-fat diet foot remain elevated we might consider treatment considering he is a smoker 2. I reviewed the result of his stress test. I advised him to stop his Prilosec and if his GI symptoms to recur he should see GI 1 year we will plan to repeat his lipid profile after at least 6 months of dietary modification 3. Patient was counseled regarding dietary modification, exercise, losing weight and smoking cessation 4. We will see him back in the office in 6-month 5. Patient was advised to notify me change in cardiac status or symptoms 6. Risk factor modification with low-dose cholesterol low-fat diet Review of Systems Cardiovascular: Positive for palpitations. Neurological: Positive for light-headedness. All other systems reviewed and are negative. Vitals: 02/02/25 1356 BP: 122/80 BP Location: Left arm Patient Position: Sitting Pulse: 68 Weight: 106 kg (233 lb) Height: 1.829 m (6') Objective Physical Exam Constitutional: Appearance: Normal appearance. [...] Allergies Shellfish derived Current Medications Current Outpatient Medications Medication Instructions amitriptyline (ELAVIL) 25 mg, 2 times daily carvedilol (COREG) 3.125 mg, oral, 2 times daily (morning and late afternoon) cetirizine (ZYRTEC) 10 mg, Daily citalopram (CELEXA) 40 mg, Daily fish oil/om-3/E/folic/B6-B12 (CARDIOVID PLUS ORAL) 1 tablet, 2 times daily folic acid (Folvite) 1 mg tablet 1 tablet, Daily (629) LORazepam (ATIVAN) 1 mg, Every 6 hours PRN magnesium 200 mg tablet 1 tablet, 2 times daily methotrexate (TREXALL) 20 mg, Weekly perphenazine 2 mg, 2 times daily Assessment/Plan 1. Palpitations carvedilol (Coreg) 3.125 mg tablet 2. Ventricular ectopic beats Follow Up In Cardiology Follow Up In Cardiology carvedilol (Coreg) 3.125 mg tablet 3. PAC (premature atrial contraction) 4. Chest pain, unspecified type 5. BMI 31.0-31.9,adult 6. Shortness of breath 7. Current smoker 8. Mixed hyperlipidemia Scribe Attestation By signing my name below, I, Wendy Schrader LPN, Scribe attest that this documentation has been prepared [...] discussion and plan. documented in this encounter [facility] Work Phone: 02-02-2025 Instructions Wendy Jesus LPN - 02/02/2025 2:00 PM EDT Please bring all medicines, vitamins, and herbal supplements with you when you come to the office. Prescriptions will not be filled unless you are compliant with your follow up appointments or have a follow up appointment scheduled as per instruction of your physician. Refills should be requested at the time of your visit. BMI was above normal measurement. Current weight: 106 kg (233 lb) Weight change since last visit (-) denotes wt loss 0.6 lbs Weight loss needed to achieve BMI 25: 49.1 Lbs Weight loss needed to achieve BMI 30: 12.3 Lbs Provided instructions on dietary changes Provided instructions on exercise. Lipid lab work 6 months Follow up one year Stop Prilosec The following attachments cannot be sent through Care Everywhere.Quitting smoking ([place]an)Diet and health ([place]an)documented in this encounter [facility] Work Phone: 08-04-2024 History of Presen t illness Narrative Subjective Harshad Sarabia is a 43 y.o. male Chief Complaint Follow-up HPI Patient is here for follow-up continue management for recent evaluation for chest pain and palpitation. I suspect his symptoms is likely GI. He was placed on Prilosec and Maalox and he reported almost resolution of his symptoms. His stress test was negative. He described functional class I. Recent laboratory data noted. His he has mild elevation of his cholesterol 214 with LDL of 135 HDL 46. Assessment 1. Previous evaluation for palpitation with documentation of PVCs. One episode interpreted as possible supraventricular tachycardia. Symptoms markedly improved. He had few sporadic episode but no arrhythmia were documented on his heart rate monitoring device 2. Recent evaluation for chest pain. Stress test was negative. Symptoms appear GI and completely resolved with Prilosec 3. Previous evaluation for shortness of breath likely due to tobacco use. He reports resolution of that 4. Previous complaint of lightheadedness resolved 5. Tobacco use 6. Obesity 7. Possible anxiety Plan 1. I advised the patient to to continue with observant approach 2. I reviewed the result of his stress test. I advised him if his GI symptoms persist that he need to discuss with PCP or GI 3. Patient was counseled regarding dietary modification, exercise, losing weight and smoking cessation 4. We will see him back in the office in 6-month 5. Patient was advised to notify me change in cardiac status or symptoms 6. Risk factor modification with low-dose cholesterol low-fat diet Review of Systems Cardiovascular: Positive for chest pain and palpitations. All other systems reviewed and are negative. Vitals: 08/04/24 1407 BP: 110/78 BP Location: Right arm Patient Position: Sitting Pulse: 72 Weight: 105 kg (232 lb 6.4 oz) Height: 1.829 m (6') Objective Physical Exam Constitutional: Appearance: Normal appearance. [...] Rfl: methotrexate (Trexall) 2.5 mg tablet, Take 8 tablets (20 mg total) by mouth 1 (one) time per week., Disp: , Rfl: omeprazole (PriLOSEC) [address] capsule, Take 1 capsule (40 mg) by mouth once daily in the morning. Take before meals. Do not crush or chew., Disp: 90 capsule, Rfl: 3 perphenazine 2 mg tablet, Take 1 tablet (2 mg) by mouth 2 times a day., Disp: , Rfl: Assessment/Plan 1. Chest pain, unspecified type Follow Up In Cardiology 2. Ventricular ectopic beats Follow Up In Cardiology 3. Palpitations 4. PAC (premature atrial contraction) 5. Shortness of breath 6. BMI 31.0-31.9,adult 7. Current smoker 8. Screening for hyperlipidemia Lipid Panel Lipid Panel Scribe Attestation By signing my name below, Farzaneh Hogan LPN , Scribe attest that this documentation has been prepared [...] discussion and plan. documented in this encounter [facility] Work Phone: 08-04-2024 Instructions Farzaneh Parr LPN - 08/04/2024 2:10 PM EST Please bring all medicines, vitamins, and herbal supplements with you when you come to the office. Prescriptions will not be filled unless you are compliant with your follow up appointments or have a follow up appointment scheduled as per instruction of your physician. Refills should be requested at the time of your visit. BMI was above normal measurement. Current weight: 105 kg (232 lb 6.4 oz) Weight change since last visit (-) denotes wt loss 6.4 lbs Weight loss needed to achieve BMI 25: 48.5 Lbs Weight loss needed to achieve BMI 30: 11.7 Lbs Provided instructions on dietary changes. The following attachments cannot be sent through Care Everywhere.Heart Healthy Diet ([place])documented in this encounter [facility] Work Phone: 05-12-2024 History of Presen t illness Narrative Subjective Patient ID: Harshad Sarabia II is a 43 y.o. male. Colin presents today for his annual wellness. He has been seeing the gardening instructor for his plaque psoriasis. They put him on methotrexate and it is helping. He tried the Otezla but it made him nauseated. He did have some labs done at [facility] but is okay with checking wellness labs here. He has no new concerns. He saw the technologies division chair for palpitations and remote history of chest [...] ear normal. Nose: Nose normal. Mouth/Throat: Lips: Alanreed. Mouth: Mucous membranes are moist. Dentition: Has [...] CMP and lipids. Psoriasis Follow up with gardening instructor. Tobacco abuse We discussed smoking. Risks were [...] Cardiology. Continue carvedilol documented in this encounter [employer] 04-28-2024 History of Presen t illness Narrative Subjective Harshad Sarabia is a [...] discussion and plan. documented in this encounter [facility] Work Phone: 04-28-2024 Instructions Farzaneh Parr [...] Maalox otc recommended documented in this encounter [facility] Work Phone: 03-11-2024 Miscellaneous Notes Left message stating the referral has been sent. documented in this encounter [facility] 03-11-2024 Telephone encounter Note Left message stating the referral has been sent. [facility] 03-03-2024 Miscellaneous Notes Tried calling patient to see if he is still taking the otezla so that way we can get him some help in the meantime while trying to get medication approved. The man from [place] specified medication has to go to a specialty pharmacy [facility] documented in this encounter [facility] 03-03-2024 Telephone encounter Note Tried calling patient to see if he is still taking the otezla so that way we can get him some help in the meantime while trying to get medication approved. The man from [facility] specified medication has to go to a specialty pharmacy [facility] specialty [facility] 02-10-2024 History of Presen t illness Narrative Images from the original note were not included. Subjective Patient ID: Harshad Sarabia II is a 43 y.o. male. Can presents today for a a skin problem. He had psoriasis about 20 years ago when he was under a lot of stress and now he is had another flare-up. He has been using triamcinolone 0.1% cream that he had without any improvement. His lesions are painful. There on his elbows and knees. He does not remember what he used years ago but had been lesion free all this time. He does not know if either of his parents have psoriasis but thinks his dad might. 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 Psoriasis The following portions of the patient's history were reviewed and updated as appropriate: allergies, current medications, past family history, past medical history, past social history, past surgical history, problem list, and medication reconciliation was completed including current medication and post discharge medication. Review of Systems Skin: Positive for rash. Objective Physical Exam Vitals reviewed. Exam conducted with a coating supervisor present ( and [place] Orchard MS III). Constitutional: General: He is not in acute distress. Appearance: He is obese. He is not ill-appearing. Skin: Findings: Erythema, lesion and rash present. Rash is scaling. Comments: Multiple red plaques with scale noted on both knees and elbows. There is some accentuated skin lines noted and fissures. Pictures taken Neurological: Mental Status: He is alert. Assessment/Plan Harshad was seen today for psoriasis. Diagnoses and all orders for this visit: Psoriasis - apremilast (OTEZLA) 30 mg tablet; Take 1 tablet (30 mg total) by mouth in the morning and 1 tablet (30 mg total) before bedtime. Patient with classic psoriatic lesions on his elbows and knees. It is covering least 5% of his body surface area. Topical agents have been ineffective. We discussed risks and benefits of Otezla. He is willing to try it. Starter pack was given. We will recheck him in 2-3 months at a wellness to see how he is doing. documented in this encounter [facility] 12-23-2023 Miscellaneous Notes overdue for a wellness visit LM on VM LM on VM LM on VM Sending letter documented in this encounter [facility] 12-23-2023 Telephone encounter Note overdue for a wellness visit [facility] 12-23-2023 Telephone encounter Note LM on VM [facility] [facility]23 Telephone encounter Note LM on VM [facility] 12-23-2023 Telephone encounter Note LM on VM [facility] 12-23-2023 Telephone encounter Note Sending letter [facility] 12-23-2023 Miscellaneous Notes Rx sent in. He is overdue for a wellness visit documented in this encounter [facility] 12-23-2023 Telephone encounter Note Rx sent in. He is overdue for a wellness visit [facility] 10-19-2023 History of Presen t illness Narrative Images from the original note were not included. [address] [facility] [id number] SUBJECTIVE: Patient ID: Harshad Sarabia II is a 42 y.o. male. Chief Complaint Patient presents with back spasms Is accompanied by his today States on 10.14.23 he went to [facility] for evaluation after experiencing sudden right sided low back pain without radicular symptoms. He was bending over to lift a lap top and felt right sided low back pain. He rested the entire day, pain resolved. Following day, he bent over to put on his shoes, pain returned. Denies loss of bowel or bladder function. Denies numbness or tingling. Was prescribed Robaxin from [facility]. Today, he relates he is about 50% better. 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 Back Pain This is a new problem. The current episode started in the past 7 days. The problem occurs daily. The problem has been gradually improving since onset. The pain is present in the sacro-iliac and lumbar spine. The quality of the pain is described as aching and stabbing. The pain does not radiate. The pain is at a severity of 5/10. The pain is moderate. The pain is The same all the time. The symptoms are aggravated by bending, position and twisting. Associated symptoms include weakness. Pertinent negatives include no abdominal pain, bladder incontinence, bowel incontinence, chest pain, dysuria, fever, headaches, leg pain, numbness, paresis, paresthesias, pelvic pain, perianal numbness, tingling or weight loss. He has tried chiropractic manipulation, muscle relaxant, ice, heat and bed rest for the symptoms. The treatment provided moderate relief. The following portions of the patient's history were reviewed and updated as appropriate: allergies, current medications, past family history, past medical history, past social history, past surgical history and problem list. Past Surgical History: Procedure Laterality Date CHOLECYSTECTOMY UPPER GASTROINTESTINAL ENDOSCOPY Past Medical History: Diagnosis Date Anxiety GERD (gastroesophageal reflux disease) IBS (irritable bowel syndrome) There is no immunization history on file for this patient. REVIEW OF SYSTEMS: Review of Systems Constitutional: Negative for chills, fatigue, fever and weight loss. HENT: Negative for hearing loss and trouble swallowing. Eyes: Negative for pain and visual disturbance. Respiratory: Negative for cough, chest tightness and shortness of breath. Cardiovascular: Negative for chest pain, palpitations and leg swelling. Gastrointestinal: Negative for abdominal pain, blood in stool and bowel incontinence. Endocrine: Negative for polydipsia, polyphagia and polyuria. Genitourinary: Negative for bladder incontinence, difficulty urinating, dysuria, flank pain, hematuria, pelvic pain, scrotal swelling and testicular pain. Musculoskeletal: Positive for back pain. Skin: Negative. Allergic/Immunologic: Negative. Neurological: Positive for weakness. Negative for tingling, seizures, syncope, numbness, headaches and paresthesias. Hematological: Does not bruise/bleed easily. Psychiatric/Behavioral: Negative. PHYSICAL EXAMINATION: Vitals: 10/19/23 0847 BP: 90/62 BP Site: Left Arm BP Postition: Sitting Pulse: 72 Resp: 18 Temp: 37.1 C (98.7 F) TempSrc: Oral SpO2: 97% Weight: 102.4 kg (225 lb 11.2 oz) Height: 182.9 cm (6') Patient noted to have elevated BMI and the following intervention(s) were applied: encouragement to exercise. Physical Exam Vitals and nursing note reviewed. Constitutional: General: He is not in acute distress. Appearance: He is well-developed. HENT: Head: Normocephalic and atraumatic. Right Ear: Tympanic membrane and external ear normal. Left Ear: Tympanic membrane and external ear normal. Nose: Nose normal. Mouth/Throat: Mouth: Mucous membranes are moist. Pharynx: No oropharyngeal exudate. Eyes: General: No scleral icterus. Right eye: No discharge. Left eye: No discharge. Conjunctiva/sclera: Conjunctivae normal. Pupils: Pupils are equal, round, and reactive to light. Neck: Vascular: No JVD. Cardiovascular: Rate and Rhythm: Normal rate and regular rhythm. Heart sounds: Normal heart sounds. No murmur heard. No friction rub. No gallop. Pulmonary: Effort: Pulmonary effort is normal. No respiratory distress. Breath sounds: Normal breath sounds. Chest: Chest wall: No tenderness. Abdominal: General: Bowel sounds are normal. There is no distension. Palpations: Abdomen is soft. There is no mass. Tenderness: There is no abdominal tenderness. There is no guarding or rebound. Hernia: No hernia is present. Musculoskeletal: General: Tenderness present. Normal range of motion. Cervical back: Normal range of motion and neck supple. Lumbar back: Tenderness and bony tenderness present. Back: Lymphadenopathy: Cervical: No cervical adenopathy. Skin: General: Skin is warm and dry. Capillary Refill: Capillary refill takes less than 2 seconds. Findings: No rash. Neurological: Mental Status: He is alert and oriented to person, place, and time. Deep Tendon Reflexes: Reflexes are normal and symmetric. Psychiatric: Mood and Affect: Mood normal. Behavior: Behavior normal. Thought Content: Thought content normal. Judgment: Judgment normal. ASSESSMENT/PLAN: Harshad was seen today for back spasms. Diagnoses and all orders for this visit: Strain of lumbar paraspinous muscle, subsequent encounter - predniSONE (DELTASONE) 20 mg tablet; Take 1 tablet (20 mg total) by mouth See Admin Instructions. 1 tab 2x daily x3 days, 1 tab daily x3 days, 1/2 tablet daily x4 days - methocarbamoL (ROBAXIN) 750 mg tablet; Take 1 tablet (750 mg total) by mouth 3 (three) times a day for 10 days. - ibuprofen (MOTRIN) 800 mg tablet; Take 1 tablet (800 mg total) by mouth every 8 (eight) hours as needed for pain. Discontinue Relafen. Start Prednisone taper Reorder Robaxin 750 mg oral TID for additional 10 days Ibuprofen 800 mg oral every 8 hours PRN pain Back stretches. Note off work today ALL QUESTIONS ANSWERED Total time spent was 25 minutes: Preparing to see the patient (e.g., review of tests) Obtaining and/or reviewing separately obtained history Performing a medically appropriate examination and/or evaluation Counseling and educating the patient/family/caregiver Ordering medications, tests, or procedures Follow-up: Next scheduled Sooner if pain does not resolve MINNA Gooden 10/19/23 0952 documented in this encounter [facility] 09-24-2023 Miscellaneous Notes Rx sent in. He is due for a wellness any time documented in this encounter [facility] 09-24-2023 Telephone encounter Note Rx sent in. He is due for a wellness any time [facility] 04-22-2023 History of Presen t illness Narrative Subjective Harshad Sarabia is a [...] 5. BMI 38.0-38.9,adult documented in this encounter [facility] Work Phone: 04-22-2023 Instructions Adelfo Yang [...] of your visit. documented in this encounter [facility] Work Phone: Evaluation note Diagnosis Shortness of breath- Primary Palpitations Ventricular ectopic beats Other premature beats PAC (premature atrial contraction) Supraventricular premature beats BMI 38.0-38.9,adult documented in this encounter [facility] Work Phone: Evaluation noteNo assessment information available [facility] Work Phone: Evaluzxkiq note* Diagnosis Chest pain, unspecified type- Primary Palpitations Ventricular ectopic beats Other premature beats PAC (premature atrial contraction) Supraventricular premature beats Shortness of breath BMI 38.0-38.9,adult Current smoker documented in this encounter [facility] Work Phone: Evaluation note* Diagnosis Chest pain, unspecified type documented in this encounter [facility] Work Phone: Evaluation note* Diagnosis Strain of lumbar paraspinous muscle, subsequent encounter- Primary [facility] Diagnosis Chest pain, unspecified type- Primary Ventricular ectopic beats Other premature beats Palpitations PAC (premature atrial contraction) Supraventricular premature beats Shortness of breath BMI 31.0-31.9,adult Current smoker Screening for hyperlipidemia Screening for lipoid disorders documented in this encounter [facility] Work Phone: Evaluation note* Diagnosis Psoriasis- Primary Other psoriasis [facility]* Diagnosis Psoriasis- Primary Other psoriasis documented in this encounter [facility]* Diagnosis Well adult exam- Primary Routine [...] Other premature beats [facility]* Diagnosis Palpitations- Primary Ventricular ectopic beats Other premature beats PAC (premature atrial contraction) Supraventricular premature beats Chest pain, unspecified type BMI 31.0-31.9,adult Shortness of breath Current smoker Mixed hyperlipidemia documented in this encounter [facility] Work Phone: History of Present illness [...] me change in cardiac status or symptoms [facility] [facility] DO Work Phone: History of Present [...] me change in cardiac status or symptoms -[facility] [facility] DO Work Phone: InstructionsNot on filedocumented in this encounter [facility] SystemInstructions* Attachments The following attachments cannot be sent through Care Everywhere. * Low Back Pain ED ([place]) [facility]ructionsNot on file documented in this [facility] SystemInstructionsNot on file documented in this [facility]Pro[facility] SystemInstructionsNot on file documented in this [facility] SystemInstructionsNot on file documented in this [facility]Pro[facility] SystemInstructionsNot on file [facility] in [facility] SystemInstructionsNot on file [facility] SystemReason for referral (narrative)* Consultation (Routine) - Authorized Specialty Diagnoses / Procedures Referred By Rahul aguirre Referred To Contact Cardiology Diagnoses Palpitations Ventricular ectopic beats Procedures Follow Up In Cardiology Candelaria Doshi MD [address] [address] Candelaria Doshi MD [address] [facility] [address], [place] [address] Referral ID Status Reason Start Date Expiration Date V isits Requested Visits Authorized [id number] Authorized 04/22/2023 04/21/2024 1 1 [facility] Work Phone: Reason for referral (narrative)* Consultation (Routine) - Pending Review Specialty Diagnoses / Procedures Referred By Rahul aguirre Referred To Contact Dermatology Diagnoses Psoriasis Lawson Hodge, DO [address] [place] [address] Miguel Ngo DO [address] [place] [address] Referral ID Status Reason Start Date Expiration Date Visits Requested Visits Authorized [id number] Pending Review Specialty Services Required 02/26/2024 02/25/2025 1 1 [facility] for visit Narrative* Cardiac Stress Testing (Routine) - Authorized Specialty Diagnoses / Procedures Referred By Contac t Referred To Contact Cardiology Diagnoses Chest pain, unspecified type Procedures Stress Test MT CV STRS TST XERS&/OR RX CONT ECG TRCG ONLY Candelaria Doshi MD [address] [facility] [address], [address] [place] [address] Phone: tel: fax: Referral ID Status Reason Start Date Expiration Date V isits Requested Visits Authorized [id number] Authorized 04/28/2024 04/28/2025 1 1 [facility] Work Phone: Summary Purpose Family History [...] section and content) DATE CREATED AUTHOR 06/15/2020 [facility] DATE CREATED AUTHOR AUTHOR'S ORGANIZ ATION 01/11/2021 [facility] DATE CREATED AUTHOR AUTHOR'S ORGANIZ ATION 08/25/2021 [facility] DATE CREATED AUTHOR AUTHOR'S ORGANIZ ATION 07/29/2022 [facility] DATE CREATED AUTHOR AUTHOR'S ORGANIZ ATION 07/29/2022 [facility] DATE CREATED AUTHOR AUTHOR'S ORGANIZ ATION 04/03/2024 [facility] DATE CREATED AUTHOR AUTHOR'S ORGANIZ ATION 04/04/2024 [facility] DATE CREATED AUTHOR AUTHOR'S ORGANIZ ATION 05/15/2024 [facility] DATE CREATED AUTHOR AUTHOR'S ORGANIZ ATION 05/16/2024 [facility] DATE CREATED AUTHOR AUTHOR'S ORGANIZ ATION 06/03/2024 [facility] DATE CREATED AUTHOR AUTHOR'S ORGANIZ ATION 10/02/2024 [facility] DATE CREATED AUTHOR AUTHOR'S ORGANIZ ATION 02/04/2025 [facility] Reason for Visit (unrecogniz ed section and content) Reason Comments Follow-up 9 month Reason Comments Annual Exam Specialty Diagnoses / Procedures Referred By Contana t Referred To Contact Cardiology Diagnoses Palpitations Ventricular ectopic beats Procedures Follow Up In Cardiology Candelaria Doshi MD [address] [facility] [address], [place] [id number] Phone: tel: fax: Candelaria Doshi MD [address] [place] [address] 2, [place] [id number] Phone: tel: fax: Referral ID Status Reason Start Date Expiration Date V isits Requested Visits Authorized [id number] Authorized 04/22/2023 04/21/2024 1 1 Reason Comments Med Refill Reason Comments back spasms Reason Comments Follow-up 3 month, started on omeprazole Specialty Diagnoses / Procedures Referred By Contac t Referred To Contact Cardiology Diagnoses Chest pain, unspecified type Procedures Follow Up In Cardiology Candelaria Doshi MD [address] [place] [address], [place] [id number] Phone: tel: fax: Candelaria Doshi MD [address] [place] [address], [place] [id number] Phone: tel: fax: Referral ID Status Reason Start Date Expiration Date V isits Requested Visits Authorized [id number] Authorized 04/28/2024 04/28/2025 1 1 Reason Comments Psoriasis About a Month. Been using Triamcinolone cream Reason Comments Annual Exam Reason Comments Follow-up 6 month follow up fo r Chest pain, unspecified type Specialty Diagnoses / Procedures Referred By Contana t Referred To Contact Cardiology Diagnoses Ventricular ectopic beats Procedures Follow Up In Cardiology Candelaria Doshi MD [address] [place] [address] 2, [address] [address] Phone: tel: fax: Candelaria Doshi MD [address] [place] [address], [address] [address] Phone: tel: fax: Referral ID Status Reason Start Date Expiration Date V isits Requested Visits Authorized [id number] Authorized 08/04/2024 08/04/2025 1 1 Care Teams (unrecognized sec tion and content) [employer] Operator Relationship Specialty Start Date End Date Lawson Hodge [address] [place] [address] PCP - General 06/13/20 Team Status: Active Member Role Status Dates Hipolito Ruiz MD Primary Care Provider Active Team Status: Inactive Member Role Status Dates Hipolito Ruiz MD Primary Care Provider Active Sta rt: March 23, 2024 End: March 23, 2024 Srinivas Moncada MD Attending Provider Active St art: March 23, 2024 End: March 23, 2024 [employer] Operator Relationship Specialty Start Date End Date Lawson Hodge PCP - General 06/13/20 [employer] Operator Relationship Specialty Start Date End Date Carleybryce Lawson Alysa PCP - General 06/13/20 [employer] Operator Relationship Specialty Start Date End Date CarleyLawson wu JoaquimDO [address] [place] [address] PCP - General Family Medicine 04/04/22 [employer] Operator Relationship Specialty Start Date End Date Lawson Hodge DO [address], [place] [address] PCP - General Family Medicine 04/04/22 [employer] Operator Relationship Specialty Start Date End Date Lawson HodgeardDO PCP - General 06/13/20 [employer] Operator Relationship Specialty Start Date End Date Lawson Hodge DO [address] [place] [address] PCP - General Family Medicine 04/04/22 [employer] Operator Relationship Specialty Start Date End Date Lawson Hodge DO [address] [place] [address] PCP - General Family Medicine 04/04/22 [employer] Unit Operator Relationship Specialty Start Date End Date Lawson Hodge DO [address], [place] [address] PCP - General Family Medicine 04/04/22 [employer] Unit Operator Relationship Specialty Start Date End Date Lawson Hodge DO [address], [place] [address] PCP - General Family Medicine 04/04/22 [employer] Unit Operator Relationship Specialty Start Date End Date Lawson Hodge DO [address], [place] [address] PCP - General Family Medicine 04/04/22 [employer] Unit Operator Relationship Specialty Start Date End Date Lawson Hodge DO [address], [place] [address] PCP - General Family Medicine 04/04/22 [employer] Operator Relationship Specialty Start Date End Date Lawson Hodge DO [address] [place] [address] PCP - General Family Medicine 04/04/22 Goals (unrecognized section and content) Goals may be documented in a n alternate sectionNot on filedocumented as of this encounterNot on filedocumented as of this encounterNot on filedocumented as of this encounterNot on filedocumented as of this encounterNot on filedocumented as of this encounterNot on filedocumented as of this encounterNot on filedocumented as of this encounterNot on filedocumented as of this encounterNot on filedocumented as of this encounterNot on filedocumented as of this encounterNot on filedocumented as of this encounterNot on filedocumented as of this encounter FOR RECORDS PERTAINING TO PATIENTS WHO ARE [...] BE BASED ON THE PRIMARY CLINICAL RECORDS. [facility] provides no warranty or guarantee of the accuracy or completeness of information in this document.
[2025-02-21 13:47] LABS: Hematocrit 42.4 % (42.0-54.0); Hemoglobin 14.6 g/dL (14.0-18.0); Immature Granulocytes Abs Auto 0.04 10^3/uL (0.00-0.03); Immature Granulocytes Pct Auto 0.4 % (0.0-0.5); Lymphocytes Absolute Auto 3.0 10^3/uL (1.2-3.8); Mean Corpuscular HGB Conc 34.4 g/dL (29.9-35.2); Mean Corpuscular Hemoglobin 32.1 pg (25.9-34.0); Mean Corpuscular Volume 93.2 fL (80.0-94.0); Platelet Count 216 10^3/uL (150-450); Red Blood Count 4.55 10^6/uL (4.70-6.10); White Blood Count 10.2 10^3/uL (4.0-11.0)
[2025-02-21 13:58] LABS: Alanine Aminotransferase 79 U/L (16-63); Albumin Globulin Ratio 1.0; Albumin Level 3.7 g/dL (3.4-5.0); Alkaline Phosphatase 83 U/L (46-116); Anion Gap 12.7; Aspartate Amino Transferase 29 U/L (15-37); Blood Urea Nitrogen 6.0 mg/dL (7.0-18.0); Calcium 8.7 mg/dL (8.5-10.1); Carbon Dioxide 25.3 mmol/L (21.0-32.0); Chloride 106 mmol/L (98-107); Estimated GFR (African America >60 (>=60 mL/min/1.73m^2); Estimated GFR (Non-African Ame >60 (>=60 mL/min/1.73m^2); Globulin 3.6 g/dL; Glucose 105 mg/dL (74-106); Potassium 4.0 mmol/L (3.5-5.1); Sodium 140 mmol/L (136-145); Total Protein 7.3 g/dL (6.4-8.2)
== END 2025-02-21 12:59 | disposition home or self-care (01) ==
LOC: LAB 13:00
PROVIDERS: PCP Family Medicine; Visit Provider Registered Nurse
DX: L40.51 Distal interphalangeal psoriatic arthropathy (principal); M15.0 Primary generalized (osteo)arthritis; Z79.899 Other long term (current) drug therapy
CPT/HCPCS: 36415; 80053; 85025; 85652